=== PATIENT | female | born 1955 | race Caucasian/White ===

== ENCOUNTER 2019-08-10 18:14 | Inpatient (IN) | payer OTHER ==
[~2019-08-10] VITALS: Ht 154.9 cm; Wt 85.4 kg
[~2019-08-10 18:14] MED LIST: ACCOLATE10 MG PO; ALBUTEROL SULF8.5 GM INH; ATROVENT HFA12.9 GM; CYMBALTA30 MG PO; QUETIAPINE FUM100 MG PO; SYMBICORT 80-10.2 GM INH; TRAZODONE HCL50 MG PO
[2019-08-10] MEDS ORDERED: METHYLPREDNISOLONE SOD SUCC 125 MG/2ML VIAL IV STA (18:15)
[2019-08-10] MEDS ORDERED: LEVALBUTEROL HCL SOLN NEBU 1.25 MG/3 ML NEB INH ONE (18:15)
[2019-08-10] MEDS ORDERED: IPRATROPIUM BROMIDE 0.02% 2.5 ML NEB NEB ONE ×2 (18:15→19:15)
[2019-08-10] MEDS ORDERED: ASPIRIN 81 MG CHEW TAB PO ONE (18:15)
[2019-08-10] MEDS ORDERED: LEVOFLOXACIN 500MG/D5W 100ML 100 ML IV ONE (18:30)
[2019-08-10] MEDS ORDERED: SODIUM CHLORIDE 0.9% 500ML 500 ML IV ONE (18:45)
[2019-08-10 18:50] LABS: BASOPHILS # (AUTO) 0.1 (0.0-0.1); BASOPHILS % 0.3 % (0.0-1.0); EOSINOPHILS # (AUTO) 0.1 (0.0-0.4); EOSINOPHILS % 0.6 % (0.0-6.0); HEMATOCRIT 39.6 % (34.2-44.1); HEMOGLOBIN 13.3 g/dL (12.0-16.0); LYMPHOCYTES # (AUTO) 1.5 (1.0-3.2); MEAN CORPUSCULAR HGB CONC 33.6 g/dL (31-35); MEAN CORPUSCULAR VOLUME 92.3 fL (81-99); MONOCYTES # (AUTO) 1.8 (0.2-0.8); MONOCYTES % 8.5 % (4.4-11.3); NEUTROPHILS # (AUTO) 17.8 (2.1-6.9); PLATELET COUNT 275 x10e3/uL (140-360); RED BLOOD COUNT 4.29 x10e6/uL (3.6-5.1); RED CELL DISTRIBUTION WIDTH 12.8 % (11.7-14.4)
[2019-08-10 18:59] LABS: PARTIAL THROMBOPLASTIN TIME 28.6 seconds (23.8-35.5); PROTHROMBIN TIME 13.4 seconds (11.9-14.5)
[2019-08-10] MEDS ORDERED: ALBUTEROL SULF 0.083% NEB SOLN 3 ML NEB NEB STA (19:04)
[2019-08-10 19:09] LABS: ALANINE AMINOTRANSFERASE 40 IU/L (0-55); ALBUMIN 3.6 g/dL (3.5-5.0); ALBUMIN/GLOBULIN RATIO 0.9 (0.8-2.0); ALKALINE PHOSPHATASE 91 IU/L (40-150); ANION GAP 18.1 mmol/L (8-16); BLOOD UREA NITROGEN 12 mg/dL (7-26); BUN/CREATININE RATIO 16 (6-25); CALCIUM 9.8 mg/dL (8.4-10.2); CARBON DIOXIDE 28 mmol/L (22-29); CHLORIDE 96 mmol/L (98-107); CREATINE KINASE 269 IU/L (29-168); CREATININE, SERUM 0.76 mg/dL (0.57-1.11); EST GLOMERULAR FILTRATION RATE > 60 ML/MIN (60-); GLUCOSE 110 mg/dL (74-118); MAGNESIUM 1.8 MG/DL (1.3-2.1); POTASSIUM 4.1 mmol/L (3.5-5.1); SODIUM 138 mmol/L (136-145)
[2019-08-10] MEDS ORDERED: SODIUM CHLORIDE 0.9% 1000ML 1,000 ML IV ONE (19:15)
[2019-08-10] MEDS ORDERED: ACETAMINOPHEN 325 MG TAB PO ONE (19:15)
--- NOTE | 2019-08-10 19:16 | Diagnostic Imaging Report ---
EXAMINATION: CHEST SINGLE (PORTABLE) INDICATION: Shortness of breath ^SOB COMPARISON: None FINDINGS: TUBES and LINES: None. LUNGS: Perihilar peribronchial opacity could be due to bronchitis. No consolidative pneumonia. PLEURA: No pleural effusion or pneumothorax. HEART AND MEDIASTINUM: The cardiomediastinal silhouette is unremarkable. BONES AND SOFT TISSUES: No acute osseous lesion. Soft tissues are unremarkable. UPPER ABDOMEN: No free air under the diaphragm. IMPRESSION: Perihilar peribronchial opacity could be due to bronchitis. No consolidative pneumonia. Signed by: Dr. John Nieves M.D. on 08/10/2019 7:13 PM
[2019-08-10] MEDS ORDERED: SODIUM CHLORIDE 0.9% 1000ML 1,000 ML ONE (19:18)
[2019-08-10 19:23] LABS: B-TYPE NATRIURETIC PEPTIDE2 < 10.0 pg/mL (0-100)
[2019-08-10] MEDS ORDERED: ONDANSETRON HCL INJ 2MG/ML 2ML 2 MG/ML VIAL IV STA (19:39)
[2019-08-10] MEDS ORDERED: PROMETHAZINE HCL (IM) 25 MG/ML VIAL ONE (20:27)
[2019-08-10 21:24] LABS: CLARITY,URINE SL CLOUDY (CLEAR); COLOR,URINE YELLOW (YELLOW); KETONES,URINE NEGATIVE (NEGATIVE); LEUKOCYTE ESTERASE ,URINE NEGATIVE (NEGATIVE); NITRITE,URINE NEGATIVE (NEGATIVE); PROTEIN,URINE DIPSTICK 1+ (NEGATIVE); URINE UROBILINOGEN 2 mg/dL (0.2 - 1)
[2019-08-10 21:25] LABS: BILIRUBIN,URINE NEGATIVE (NEGATIVE)
[2019-08-10] MEDS ORDERED: SODIUM CHLORIDE FLUSH 10 ML SYR INJ PRN (22:00)
[2019-08-10] MEDS: LEVOFLOXACIN 500MG/D5W 100ML IV SCH (22:32)
[2019-08-10] MEDS: SODIUM CHLORIDE 0.9% 1000ML 1,000 ML IV SCH (22:42)
[2019-08-10] MEDS ORDERED: VENLAFAXINE HCL75 M1 PO (23:42)
[2019-08-10] MEDS ORDERED: LAMICTAL100 MG PO (23:42)
[2019-08-10] MEDS ORDERED: MYRBETRIQ50 MG PO (23:46)
[2019-08-10] MEDS ORDERED: AMLODIPINE BESY10 MG PO (23:46)
[2019-08-10] MEDS ORDERED: IMITREX25 MG PO (23:47)
[2019-08-11] MEDS: METHYLPREDNISOLONE SOD SUCC 40 MG/ML VIAL 1ML IV SCH ×4 (00:39→16:42)
[2019-08-11 03:36] LABS: CREATINE KINASE 284 IU/L (29-168)
[2019-08-11] MEDS: ALBUTEROL/IPRATROPIUM 3 ML NEB NEB SCH ×5 (06:15→23:41)
[2019-08-11 06:58] LABS: BLOOD UREA NITROGEN 12 mg/dL (7-26); BUN/CREATININE RATIO 16 (6-25); CALCIUM 8.7 mg/dL (8.4-10.2); CARBON DIOXIDE 26 mmol/L (22-29); CHLORIDE 102 mmol/L (98-107); CREATININE, SERUM 0.73 mg/dL (0.57-1.11); EST GLOMERULAR FILTRATION RATE > 60 ML/MIN (60-); GLUCOSE 158 mg/dL (74-118); SODIUM 137 mmol/L (136-145)
[2019-08-11] MEDS: ACETAMINOPHEN 325 MG TAB PO PRN (07:53)
[2019-08-11 07:57] LABS: HEMATOCRIT 36.3 % (34.2-44.1); HEMOGLOBIN 11.6 g/dL (12.0-16.0); RED BLOOD COUNT 3.83 x10e6/uL (3.6-5.1)
[2019-08-11 07:58] LABS: LYMPHOCYTES % 4.8 % (18.0-39.1); MEAN CORPUSCULAR HEMOGLOBIN 30.3 pg (28-32); MEAN CORPUSCULAR VOLUME 94.8 fL (81-99); MONOCYTES % 1.3 % (4.4-11.3); NEUTROPHILS % 93.4 % (38.7-80.0); PLATELET COUNT 251 x10e3/uL (140-360); RED CELL DISTRIBUTION WIDTH 12.7 % (11.7-14.4)
[2019-08-11 07:59] LABS: BASOPHILS % 0.1 % (0.0-1.0)
[2019-08-11 08:21] LABS: CREATINE KINASE 268 IU/L (29-168)
[2019-08-11 09:23] LABS: LYMPHOCYTES # (AUTO) 0.9 (1.0-3.2); MONOCYTES # (AUTO) 0.2 (0.2-0.8); NEUTROPHILS # (AUTO) 17.2 (2.1-6.9)
--- NOTE | 2019-08-11 12:27 | Consultation ---
DATE OF CONSULTATION: 08/11/2019 Pulmonary Consultation REASON FOR CONSULT: Shortness of breath, wheezing, coughing. HISTORY OF PRESENT ILLNESS: Ms. De La Cruz is a 63-year-old female. She has COPD. She still smokes, has been a smoker for 49 years. She started smoking when she was 14 years old. She has been smoking 2 packs per day. She reports that the cough and congestion started few days ago, progressively got worse, associated with green phlegm, coughing, and shortness of breath on exertion. She also had audible wheezing. She is on nebulizer treatment Stiolto and Stiolto at home was not working, so she decided to come to the emergency room. The shortness of breath slightly improved with nebulizer treatment. She still has cough. REVIEW OF SYSTEMS: GENERAL: Denies fever and chills. HEAD: Denies any head trauma. ENT: Denies any earache. CVS: Denies any chest pain. RESPIRATORY: Shortness of breath. GI: Denies any nausea or vomiting. The rest of the review of systems are negative except as in HPI. PAST MEDICAL HISTORY: Hypertension. PAST SURGICAL HISTORY: Unknown. FAMILY AND SOCIAL HISTORY: She is a smoker for almost 50 years, 2 packs per day. Denies any alcohol use. PHYSICAL EXAMINATION: VITAL SIGNS: Temperature 98.2, T-max of 101.1, pulse of 100, blood pressure 116/63, respiratory rate is 18 to 20, and O2 saturation 96% on 4 L. HEENT: Head is atraumatic and normocephalic. NECK: Supple. CHEST: Wheezing bilaterally. HEART: S1 and S2 audible. ABDOMEN: Soft and nontender. EXTREMITIES: No pedal edema. NEUROLOGIC: Awake and alert. No focal neurologic deficit. LABORATORY DATA: White count of 18,000, hemoglobin 11.6, and platelets 251. Chemistry is within normal limits. CK-MB 14.30 and CK 268. Gram stain sputum Gram-positive cocci in pairs. Chest x-ray, no pneumonia, however, increased bronchovascular markings. ASSESSMENT/PLAN: Ms. De La Cruz is a 63-year-old female with chronic obstructive pulmonary disease, came in with shortness of breath, increasing cough, and wheezing, likely chronic obstructive pulmonary disease exacerbation. Current problems: 1. Chronic obstructive pulmonary disease exacerbation. 2. Hypertension. 3. Smoker. PLAN: Continue the patient on IV Solu-Medrol and nebulizer treatment as ordered. Oxygen as needed. Continue Levaquin. Thank you for this consult. MD DIANA Herrera/MAGALI /[id number]
[2019-08-11] MEDS: SODIUM CHLORIDE 0.9% 1000ML 1,000 ML IV SCH ×2 (13:32→17:00)
[2019-08-11 14:10] LABS: CREATINE KINASE 222 IU/L (29-168)
--- NOTE | 2019-08-11 14:28 | History and Physical ---
HISTORY OF PRESENT ILLNESS: Ms. De La Cruz is a 63-year-old female with history of tobacco use, hypertension, hyperlipidemia, bipolar disorder, COPD that started on three days prior to admission with some shortness of breath, cough, and phlegm. She developed fever. The shortness of breath got worse so she decided to come to the emergency room. PAST MEDICAL HISTORY: She has history of hypertension, hyperlipidemia, COPD, and bipolar disorder. ALLERGIES: SHE IS ALLERGIC TO KEFLEX AND MORPHINE. PAST SURGICAL HISTORY: She had cholecystectomy and hysterectomy. SOCIAL HISTORY: She lives at home with her family. She smokes 1-1/2 pack per day, but she does not drink any alcohol. PHYSICAL EXAMINATION: GENERAL: Today, she is awake and alert. She is feeling better. VITAL SIGNS: Temperature is 98.2, blood pressure is 116/63. HEART: Regular rate, 106 per minute. LUNGS: Bilateral diffuse wheezing. ABDOMEN: Distended and soft. LOWER EXTREMITIES: No edema. LABORATORY DATA: On the blood work white count is 18.37, hemoglobin 11.6, hematocrit 36.3. Potassium is 5, creatinine is 0.73, glucose is 158. Troponin has been negative. BNP is less than 10. Urine shows no white blood cells. Influenza came back negative. Chest x-ray shows perihilar peribronchial opacity that could be due to bronchitis. No consolidative pneumonia. ASSESSMENT: 1. Acute chronic obstructive pulmonary disease exacerbation. 2. Acute bronchitis. 3. Hypertension. 4. Hyperlipidemia. 5. Tobacco use. 6. Bipolar disorder. PLAN: At the present time is to continue IV steroids. Continue neb treatment. Continue IV antibiotics. We are going to get a consult with Dr. Stafford and once we have her home medications we are going to restart her home medications. Prognosis remains guarded. Continual O2 nasal cannula. All this was discussed with the patient and all questions were answered to satisfaction. MD MYLES Bass/MAGALI /[id number]
[2019-08-11 15:43] VITALS: BP 125/61
[2019-08-11 16:00] VITALS: BP 125/61
[2019-08-11 16:09] VITALS: BP 125/61
[2019-08-11] MEDS ORDERED: INFLUENZA VIRUS VAC SPLIT INJ 0.5 ML SYR IM SCH (16:11)
[2019-08-11] MEDS ORDERED: PNEUMOCOCCAL VACCINE POLYVALENT 23 MCG/0.5 ML VIAL IM SCH (16:11)
[2019-08-11] MEDS ORDERED: FENOFIBRATE145 MG PO (16:19)
[2019-08-11] MEDS ORDERED: OMEPRAZOLE40 MG PO (16:19)
[2019-08-11] MEDS ORDERED: ALBUTEROL SULFATE HFA 8GM INHALATION AEROSOL INH PRN (19:15)
[2019-08-11] MEDS ORDERED: SUMATRIPTAN SUCCINATE 25 MG TAB PO PRN (19:15)
--- OUTSIDE RECORDS SUMMARY | 2019-08-11 19:28 | XMS REPORT ---
Author Author [facility] Address Unknown Phone Unavailable Care Team Providers Care Desktop Publisher Name Role Phone Grace BADILLO Unavailable Unavailable Payers Payer Name Policy Type Policy Number Effective Date Expiration Date Problems This patient has no known problems. Allergies, Adverse Reactions, Alerts Allergy Name Allergy Type Status Severity Reaction(s) Onset Date Inactive Date Treating Clinician Comments sucralfate DA Active U 2017-05-02 00:00:00 Medications This patient has no known medications. Results Test Description Test Time Test Comments Text Results Atomic Results Result Comments CHEST SINGLE (PORTABLE) 2019-08-10 19:13:00 [place] [id number] Patient Name: GEOVANNA MCGARRY MR #: [id number] : 1955 Age/Sex: 63/F Req #: [id number] Adm Physician: Ordered by: HERNAN BADILLO MD Report #: [id number] Location: ER Room/Bed: Procedure: [id number] DX/CHEST SINGLE (PORTABLE) Exam Date: 08/10/19 Exam Time: 1858 REPORT STATUS: Signed EXAMINATION: CHEST SINGLE (PORTABLE) IND ICATION: Shortness of breath SOB COMPARISON: None FINDINGS: TUBES and LINES: None. LUNGS: Perihilar peribronchial opacity could be due to bronchitis. No consolidative pneumonia. PLEURA: No pleural effusion or pneumothorax. HEART AND MEDIASTINUM: The cardiomediastinal silhouette is unremarkable. BONES AND SOFT TISSUES: No acute osseous lesion. Soft tissues are unremarkable. UPPER ABDOMEN: No free air under the diaphragm. IMPRESSION: Perihilar peribronchial opacity could be due to bronchitis. No consolidative pneumonia. Signed by: Dr. Maurilio Nieves M.D. on 08/10/2019 7:13 PM Dictated By: MAURILIO NIEVES MD, MD 12 Transcribed By: EILEEN on 08/10/191912 COPY TO: HERNAN BADILLO MD 2018-05-22 14:28:00 RUN DATE: 05/22/18 [facility] PAGE 1 RUN TIME: 1428 Specimen Inquiry RUN USER: INTERFACE PATIENT: GEOVANNA MCGARRY LOC: [facility] U #: [id number] AGE/SX: 62/F ROOM: RE05/20/18REG DR: Bossman Bernal MD : 57 BED: DIS: STATUS: [facility] TLOC: SPEC #: [id number] RECD: 05/20/18 STATUS: GEMMA MURGUIA #: [id number] HANG: 05/20/[address]: Bossman Bernal MD ENTERED: 05/20/18 SP TYPE: POLYP OTHR DR: Guera Stevens MDORDERED: GROSS COPIES TO: Guera Anaya MD [address] [place] [address] Bossman Bernal MD [address] [place] [address] PROCEDURES: GROSS (05/21/18-9701) TISSUES: 1. SIGMOID - POLYP HS BX 2. RECTUM, NOS - POLYP HS BX x2 CLINICAL HISTORY COLLECTION DATE: 05/20/18 SCREENING, HISTORY OF COLON POLYPS FINAL DIAGNOSIS Sigmoid colon, polyp, biopsy: HYPERPLASTIC POLYP NEGATIVE FOR MALIGNANCY Rectum, polyp X2, biopsy: HYPERPLASTIC POLYPS NEGATIVE FOR MALIGNANCY [place] [id number] CONTINUED ON NEXT PAGE RUN DATE: 05/22/18 [facility] PAGE 2 RUN TIME: 1428 Specimen Inquiry RUN USER: INTERFACE SPEC #: [id number] PATIENT: GEOVANNA MCGARRY #[id number] (Continued) MACROSCOPIC The first specimen is received in formalin, labeled with the patient's name, identified as "sigmoid polyp ", and consists of enriquez- red biopsy tissue measuring 0.2 cm, submitted as (1). The second specimen is received in formalin, labeled with the patient's name, identified as "rectum polyp", and consists of two enriquez biopsy tissue measuring 0.1 to 0.15 cm each, submitted as (2). GROSS PERFORMED AT [facility] [address] [place] [address] 318[address] [phone])[phone] MICROSCOPIC MICROSCOPIC PERFORMED AT [facility] All of the stains, including any controls performed, stain appropriately. [facility] [address] [place] [phone] [phone])[phone] PERFORMING SITE Diagnosis performed at: [facility] [address] [place], [place] [id number] Signed SIGNATURE ON FILE Jennifer Ribera 05/22/18 1428 END OF REPORT
[2019-08-11 20:00] VITALS: BP 117/73
[2019-08-11] MEDS: QUETIAPINE FUMARATE 100 MG TAB PO SCH (21:02)
[2019-08-11] MEDS: LEVOFLOXACIN 500MG/D5W 100ML IV SCH (21:02)
[2019-08-11] MEDS ORDERED: PHENERGAN SUPP25 MG PR (21:22)
[2019-08-11] MEDS ORDERED: PROMETHAZINE 12.5MG/ NACL 0.9% 12.5 MG/50 ML BAG IV PRN (22:00)
[2019-08-12] VITALS (8 sets, daily range): BP systolic 94–126; BP diastolic 49–70
[2019-08-12] MEDS: METHYLPREDNISOLONE SOD SUCC 40 MG/ML VIAL 1ML IV SCH ×4 (00:30→19:26)
[2019-08-12] MEDS: ALBUTEROL/IPRATROPIUM 3 ML NEB NEB SCH ×6 (03:00→23:15)
[2019-08-12] MEDS: SODIUM CHLORIDE 0.9% 1000ML 1,000 ML IV SCH (04:55)
[2019-08-12] MEDS: DULOXETINE HCL 30 MG DELAYED RELEASE PO SCH (08:48)
[2019-08-12] MEDS: VENLAFAXINE HCL 75 MG CAPCR PO SCH ×2 (08:50→20:55)
[2019-08-12] MEDS: FENOFIBRATE 145 MG TAB PO SCH (08:51)
[2019-08-12] MEDS: LAMOTRIGINE 100 MG TAB PO SCH (08:51)
[2019-08-12] MEDS: PANTOPRAZOLE SOD 40 MG TABEC PO SCH (08:51)
[2019-08-12] MEDS ORDERED: VENLAFAXINE HCL 75 MG CAPCR PO SCH (09:00)
[2019-08-12] MEDS: NON-FORMULARY MEDICATION (Mirabegron (Myrbetriq) 50 MG) PO SCH (09:00)
[2019-08-12] MEDS ORDERED: AMLODIPINE BESYLATE 10 MG TAB PO SCH (09:00)
--- NOTE | 2019-08-12 10:53 | Progress Note ---
DATE: 08/12/2019 SUBJECTIVE: Ms. De La Cruz is a 63-year-old female with history of hypertension, hyperlipidemia, bipolar disorder, tobacco use and COPD, who came to the emergency room complaining of 3-day history of progressively worsening of shortness of breath, cough and phlegm. She says the shortness of breath got so bad that she had to come to the emergency room. She was started on IV antibiotics, IV steroids, neb treatments, and she is doing better. PHYSICAL EXAMINATION: GENERAL: Today, she is awake and alert. Temperature is 96.3, blood pressure 125/70. HEART: Regular rate. LUNGS: Bilateral wheezing. ABDOMEN: Tender and soft. LABORATORY DATA: On the blood work; white count 18.37, hemoglobin 11.6, hematocrit 36.3. Creatinine and CK-MB elevated. Troponin negative. Potassium 5.0, creatinine 0.73. Influenza test was negative. Blood cultures so far no growth. Sputum culture, usual respiratory sary. Urine culture, mixed sary, contamination. ASSESSMENT: 1. Acute hypoxic and hypercapnic respiratory failure. 2. Chronic obstructive pulmonary disease exacerbation. 3. Acute bronchitis. 4. Hypertension. 5. Hyperlipidemia. 6. Tobacco use. 7. Bipolar disorder. PLAN: At present time is to continue neb treatments, IV steroids, IV antibiotics. The patient has been seen by Pulmonary. Continue all other home medications. Discussion regarding smoke cessation, advised the patient to stop smoking, she understood and agreed. I spent more than 35 minutes examining the patient, reviewing overnight event, lab results, x-rays and discussing plan of care with her. MD MYLES Bass/MODL /[id number]
[2019-08-12] MEDS: AMLODIPINE BESYLATE 10 MG TAB PO SCH (20:55)
[2019-08-12] MEDS: QUETIAPINE FUMARATE 100 MG TAB PO SCH (20:55)
[2019-08-12] MEDS: LEVOFLOXACIN 500MG/D5W 100ML IV SCH (20:55)
[2019-08-13] VITALS (7 sets, daily range): BP systolic 101–161; BP diastolic 55–94
[2019-08-13] MEDS: SODIUM CHLORIDE 0.9% 1000ML 1,000 ML IV SCH ×3 (00:30→10:00)
[2019-08-13] MEDS: METHYLPREDNISOLONE SOD SUCC 40 MG/ML VIAL 1ML IV SCH ×3 (00:31→17:20)
[2019-08-13] MEDS: ALBUTEROL/IPRATROPIUM 3 ML NEB NEB SCH ×5 (03:37→23:49)
[2019-08-13 06:00] LABS: HEMOGLOBIN 10.8 g/dL (12.0-16.0); MEAN CORPUSCULAR HEMOGLOBIN 30.4 pg (28-32); MEAN CORPUSCULAR HGB CONC 32.7 g/dL (31-35); PLATELET COUNT 257 x10e3/uL (140-360); RED BLOOD COUNT 3.55 x10e6/uL (3.6-5.1); RED CELL DISTRIBUTION WIDTH 12.7 % (11.7-14.4)
[2019-08-13 06:20] LABS: ANION GAP 10.5 mmol/L (8-16); BLOOD UREA NITROGEN 19 mg/dL (7-26); BUN/CREATININE RATIO 28 (6-25); CALCIUM 8.2 mg/dL (8.4-10.2); CARBON DIOXIDE 29 mmol/L (22-29); CHLORIDE 105 mmol/L (98-107); CREATININE, SERUM 0.69 mg/dL (0.57-1.11); EST GLOMERULAR FILTRATION RATE > 60 ML/MIN (60-); GLUCOSE 136 mg/dL (74-118); POTASSIUM 4.5 mmol/L (3.5-5.1); SODIUM 140 mmol/L (136-145)
[2019-08-13] MEDS: DULOXETINE HCL 30 MG DELAYED RELEASE PO SCH (08:38)
[2019-08-13] MEDS: LAMOTRIGINE 100 MG TAB PO SCH (08:39)
[2019-08-13] MEDS: VENLAFAXINE HCL 75 MG CAPCR PO SCH ×2 (08:39→21:00)
[2019-08-13] MEDS: AMLODIPINE BESYLATE 10 MG TAB PO SCH (08:40)
[2019-08-13] MEDS: PANTOPRAZOLE SOD 40 MG TABEC PO SCH (08:40)
[2019-08-13] MEDS: FENOFIBRATE 145 MG TAB PO SCH (08:41)
[2019-08-13] MEDS: NON-FORMULARY MEDICATION (Mirabegron (Myrbetriq) 50 MG) PO SCH (09:00)
--- NOTE | 2019-08-13 11:14 | Progress Note ---
DATE: 08/13/2019 SUBJECTIVE: Ms. De La Cruz is a 63-year-old female with history of hypertension, hyperlipidemia, bipolar disorder, tobacco use, and COPD, who came to the emergency room complaining of 3 days of worsening of cough, phlegm, and shortness of breath. She was started on IV antibiotics and IV steroids. She is doing much better today. PHYSICAL EXAMINATION: GENERAL: She is awake and alert. VITAL SIGNS: Temperature is 97, blood pressure 128/70. HEART: Regular rate. LUNGS: Decreased breath sounds bilaterally. ABDOMEN: Soft. LABORATORY DATA: On the blood work, white count went down to 12.68, hemoglobin is 10.8, and hematocrit 33. Urine culture negative. Blood culture negative. ASSESSMENT: 1. Acute hypoxic and hypercapnic respiratory failure. 2. Chronic obstructive pulmonary disease exacerbation. 3. Acute bronchitis. 4. Hypertension. 5. Hyperlipidemia. 6. Tobacco use. 7. Bipolar disorder. 8. Dependence on oxygen. PLAN: The plan at present time is to continue IV antibiotics and steroids. If she is doing better, we may be able to switch her to p.o. treatment and discharge her home in the morning. All this was discussed with the patient. All questions were answered to satisfaction. MD MYLES Bass/MAGALI /[id number]
[2019-08-13] MEDS: ACETAMINOPHEN 325 MG TAB PO PRN (17:43)
[2019-08-13] MEDS: QUETIAPINE FUMARATE 100 MG TAB PO SCH (21:00)
[2019-08-13] MEDS: LEVOFLOXACIN 500MG/D5W 100ML IV SCH (22:00)
[2019-08-14] VITALS: BP 108/57
[2019-08-14] MEDS: ALBUTEROL/IPRATROPIUM 3 ML NEB NEB SCH ×3 (03:18→11:05)
[2019-08-14 04:00] VITALS: BP 113/67
[2019-08-14] MEDS: METHYLPREDNISOLONE SOD SUCC 40 MG/ML VIAL 1ML IV SCH (05:41)
[2019-08-14 08:00] VITALS: BP 156/79
[2019-08-14] MEDS: NON-FORMULARY MEDICATION (Mirabegron (Myrbetriq) 50 MG) PO SCH (08:34)
[2019-08-14] MEDS: VENLAFAXINE HCL 75 MG CAPCR PO SCH (08:39)
[2019-08-14] MEDS: LAMOTRIGINE 100 MG TAB PO SCH (08:39)
[2019-08-14] MEDS: DULOXETINE HCL 30 MG DELAYED RELEASE PO SCH (08:39)
[2019-08-14] MEDS: PANTOPRAZOLE SOD 40 MG TABEC PO SCH (08:40)
[2019-08-14] MEDS: AMLODIPINE BESYLATE 10 MG TAB PO SCH (08:40)
[2019-08-14] MEDS: FENOFIBRATE 145 MG TAB PO SCH (08:40)
[2019-08-14 09:25] VITALS: BP 156/79
[2019-08-14 12:00] VITALS: BP 119/83
--- NOTE | 2019-08-15 04:12 | Discharge Summary ---
HISTORY: Ms. De La Cruz is a 63-year-old female with a history of hypertension, hyperlipidemia, tobacco use, bipolar disorder, and COPD, came to the emergency room complaining of shortness of breath, cough of phlegm. She was started on IV antibiotics and steroids. She is doing better and the plan is to discharge her home if it is okay with Pulmonary today. PHYSICAL EXAMINATION: GENERAL: She is awake and alert, feeling much better. VITAL SIGNS: Temperature 97.4, blood pressure 156/79. HEART: Regular rate. LUNGS: Clear to auscultation. ABDOMEN: Soft. LABORATORY DATA: Blood work: White count 12.68, hemoglobin 10.8, hematocrit 33. Potassium 4.5, creatinine 0.69, glucose 136. Influenza test was negative. Cultures were all negative. Chest x-ray showed perihilar and peribronchial opacity, probably due to bronchitis. DISCHARGE DIAGNOSES: 1. Acute on chronic hypoxic respiratory failure. 2. Chronic obstructive pulmonary disease exacerbation. 3. Acute bronchitis. 4. Hypertension. 5. Hyperlipidemia. 6. Tobacco use. 7. Bipolar disorder. 8. Dependence on oxygen. PLAN: At present time is to discharge the patient home on p.o. Levaquin 500 mg daily for seven days. Steroids to taper down. Continue oxygen at home. We also talk about advice her to quit smoking. Continue other home medications and follow up with me in 1 week. She is to call me or come back to the emergency room if any recurrent problem. Please see home medication reconciliation list. MD MYLES Bass/MAGALI /[id number]
== END 2019-08-14 11:58 | disposition home or self-care (01) | DRG 189 ==
LOC: ER 18:14 → ERHOLD 08-11 00:33 → MED/SURG3 08-11 15:27 → OBSVTOIN 08-12 15:40
PROVIDERS: ADMIT Internal Medicine; ATTEND Internal Medicine
DX: J96.21 Acute and chronic respiratory failure with hypoxia (principal); J44.0 Chronic obstructive pulmonary disease with (acute) lower respiratory infection; J44.1 Chronic obstructive pulmonary disease with (acute) exacerbation; J20.9 Acute bronchitis, unspecified; F17.200 Nicotine dependence, unspecified, uncomplicated; Z99.81 Dependence on supplemental oxygen; E78.5 Hyperlipidemia, unspecified; F31.9 Bipolar disorder, unspecified; I10 Essential (primary) hypertension; J96.22 Acute and chronic respiratory failure with hypercapnia
CPT/HCPCS: 36415; 71045; 80048; 80053; 81001; 82550; 82553; 83605; 83735; 83880; 84484; 85007; 85025; 85027; 85610; 85730; 87040; 87070; 87086; 87205; 87400; 90732; 93005; 94640; 99285; G0378; J1956; J2405; J2550; J2920; J2930; J7030; J7040

== ENCOUNTER 2019-11-12 13:16 | Inpatient (IN) | payer OTHER ==
[~2019-11-12] VITALS: Ht 157.5 cm; Wt 86.2 kg
[~2019-11-12 13:16] MED LIST changes: +AMLODIPINE BESY10 MG PO; +FENOFIBRATE145 MG PO; +IMITREX25 MG PO; +LAMICTAL100 MG PO; +MYRBETRIQ50 MG PO; +OMEPRAZOLE40 MG PO; +PHENERGAN SUPP25 MG PR; +VENLAFAXINE HCL75 M1 PO
--- OUTSIDE RECORDS SUMMARY | 2019-11-12 13:19 | XMS REPORT | Summary of Care ---
Author Author [facility] - Health Organization [facility] - Health Address Unknown Phone Unavailable Care Team Providers Care Product Development Name Role Phone KevangabrieleJohnna PCP Reason for Visit * Reason Comments Rx Concern/Question question Encounter Details Care Team Description Date Type Department Malachi Brown MD [address] [facility] [id number] [place] [address] Rx Concern/Question (question) 09/23/2019 Telephone [facility] [address] [place] [address] Allergies No Known Allergiesdocumented as of this encounter (statuses as of 09/23/2019) Medications End Date Status Medication Sig Dispensed Refills Start Date Active amLODIPine 5 mg tablet 0 8 Active DULoxetine 60 mg capsule 0 8 Active omeprazole 40 mg capsule 0 8 Active losartan-hydrochlorothiaz 0 gracie 50-12.5 mg per tablet 8 Active QUEtiapine 200 mg tablet 0 8 Active fenofibrate micronized 0 130 mg capsule 8 Active lamoTRIgine 150 mg tablet 0 8 Active ipratropium-albuterol 0.5 0 mg-3 mg(2.5 mg base)/3 mL 8 nebulizer solution Active PROVENTIL HFA 90 0 mcg/actuation inhaler 8 Active butalbital-acetaminophen- Take 1 tablet 30 tablet 2 caff 50-325-40 mg tablet by mouth 8 every 6 (six) hours as needed for Headache. Active topiramate 50 mg tablet Take 1/2 60 tablet 3 tablet (25 8 mg) by mouth at bedtime for one week, then take 1/2 tablet (25 mg) by mouth twice daily for one week. Then take 1 tablet (50 mg) by mouth twice daily Active diclofenac-misoprostol Take one tab 45 tablet 2 50-200 mg-mcg per tablet twice a day 8 as needed Active SUMAtriptan 50 mg tablet Take 1 tablet 9 tablet 1 by mouth as 8 needed for Migraine. Take at onset of migraine, may repeat dose in 2hrs if not relieved by 1st dose, No more than 9 tablets/month Active Diclofenac Potassium 25 Take 25 ng by 60 capsule 2 mg Cap mouth 3 8 (three) times daily as needed for Pain (scale 4-6). Active indomethacin 25 mg Take 1 90 capsule 3 01 capsule capsule by 8 mouth every 8 (eight) hours. documented as of this encounter (statuses as of 09/23/2019) Active Problems Not on filedocumented as of this encounter (statuses as of 09/23/2019) Immunizations Name Administration Dates Next Due Influenza Virus Vaccine 04/14/2009, 05/01/2007, 05/2004 Quad IM Multi-dose 6+ [place] Pneumococcal 04/14/2009, 04/17/2004 Polysaccharide, PPSV23 (PNEUMOVAX) Td 09/05/2005 Tdap 09/07/2009 documented as of this encounter Social History Date Tobacco Use Types Packs/Day Years Used Former Smoker Smokeless Tobacco: Never Used Sex Assigned at Date Recorded Not on file Industry Job Start Date Occupation Not on file Not on file Not on file Travel End Travel History Travel Start No recent travel history available. documented as of this encounter Last Filed Vital Signs Not on filedocumented in this encounter Plan of Treatment Care Team Description Date Type Specialty Malachi Brown MD [id number] [place], [place] [address] 10/08/2019 Office Visit Dermatology Franchesca Man MD [address] [place], [place] [id number] 01/08/2020 Office Visit Neurology Health Maintenance Due Date Last Done Comments HEPATITIS C (HCV) SCREEN 1955 PAP SMEAR 1977 Breast Cancer Screening 1996 (MAMMOGRAM) COLONOSCOPY 2006 Zoster Recombinant 2006 Vaccine (SHINGRIX) (1 of 2) PNEUMOCOCCAL 0-64 YEARS 04/14/2010 04/14/2009, COMBINED SERIES (3 of 3 - PCV13) LUNG CANCER SCREEN: 2011 Recommended for age 55-80 with 30 + pack year history INFLUENZA VACCINE (#1) 2019 04/14/2009, , 04/17/2004 DTaP,Tdap,and Td Vaccines 09/08/2019 09/07/2009, 09/05/2005 (2 - Td) documented as of this encounter Results Not on filedocumented in this encounter Insurance Type Payer Benefit Subscriber ID Effective Phone Address Plan / Dates Group Medicaid [employer] [place] xxxxxxxxx 7-P PLAN - MANAGED MEDICAID STAR PLUS resent documented as of this encounter
--- OUTSIDE RECORDS SUMMARY | 2019-11-12 13:19 | XMS REPORT | Summary of Care ---
Author Author [facility] - Health Organization [facility] - Health Address Unknown Phone Unavailable Care Team Providers Care Chief Juvenile Probation Officer Name Role Phone Johnna Clements PCP Reason for Visit * Reason Comments No Show (DNKA) Encounter Details Care Team Description Date Type Department Malachi Brown MD [address] [facility] [id number] [place] [address] NO SHOW (Primary Dx) 11/02/2019 Telemedicine [facility] Dermato logy, Visit [address], [address] [place] [address] Allergies No Known Allergiesdocumented as of this encounter (statuses as of 11/03/2019) Medications End Date Status Medication Sig Dispensed [...] as of this encounter (statuses as of 11/03/2019) Active Problems No known active problemsdocumented as of this encounter (statuses as of 11/03/2019) Immunizations Name Administration Dates Next Due Influenza [...] Signs Not on filedocumented in this encounter Progress Notes * Troy Okeefe MD - 11/03/2019 1:50 PM CDT Encounter opened in error, please disregard I called patient and left messages several times without answer or call back 11/03/2019 15:20 Troy Christensen MD Dermatology PGY-4 documented in this encounter Plan of Treatment Care Team Description Date Type Specialty Franchesca Man MD [address] [place] [address] 01/08/2020 Office Visit Neurology Health Maintenance Due [...] Results Not on filedocumented in this encounter Visit Diagnoses Diagnosis NO SHOW - Primary documented in this encounter Insurance Type Payer Benefit Subscriber ID Effective Phone Address Plan / Dates Group Medicaid [employer] [place] xxxxxxxxx 7-P PLAN - MANAGED MEDICAID STAR PLUS resent documented as of this encounter
--- OUTSIDE RECORDS SUMMARY | 2019-11-12 13:19 | XMS REPORT | Summary of Care ---
Author Author [facility] - Health Organization [facility] - Health Address Unknown Phone Unavailable Care Team Providers Care Evp Head [employer] Experience Strategy Name Role Phone Johnna Clements PCP Reason for Visit * Reason Comments Appointment Encounter Details Care Team Description Date Type Department James Howe Jr., MD [address] [facility] [id number] [place], [place] [id number] Appointment 10/06/2019 Telephone [facility] Dermato logy, [address] [place] [address] Allergies No Known Allergiesdocumented as of this encounter (statuses as of 10/06/2019) Medications End Date Status Medication Sig Dispensed [...] as of this encounter (statuses as of 10/06/2019) Active Problems Not on filedocumented as of this encounter (statuses as of 10/06/2019) Immunizations Name Administration Dates Next Due Influenza [...] Specialty Malachi Brown MD [id number] [place], [place] [address] 11/03/2019 Office Visit Dermatology Franchesca Man MD [address] [place], [place] [address] 01/08/2020 Office Visit Neurology Health Maintenance Due [...]
--- OUTSIDE RECORDS SUMMARY | 2019-11-12 13:19 | XMS REPORT | Summary of Care ---
Author Author [facility] - Health Organization [facility] - Health Address Unknown Phone Unavailable Care Team Providers Care Winemaker Name Role Phone Johnna Clements PCP Reason for Visit * Reason Comments Rx Concern/Question question Results Forms Notification Encounter Details Care Team Description Date Type Department Malachi Brown MD [address] [facility] [id number] [place] [address] Rx Concern/Question (question); Results; Forms; Notification 09/23/2019 Telephone [facility] Dermato logy, [place] [id number] [facility] [address] [place] [address] Allergies No Known Allergiesdocumented as of this encounter (statuses as of 09/29/2019) Medications End Date Status Medication Sig Dispensed [...] as of this encounter (statuses as of 09/29/2019) Active Problems Not on filedocumented as of this encounter (statuses as of 09/29/2019) Immunizations Name Administration Dates Next Due Influenza [...] Specialty Malachi Brown MD [id number] [place] [address] [phone] 11/03/2019 Office Visit Dermatology Franchesca Man MD [address] [place], [place] [address] 01/08/2020 Office Visit Neurology Health Maintenance Due [...]
--- OUTSIDE RECORDS SUMMARY | 2019-11-12 13:19 | XMS REPORT | Summary of Care ---
Author Author [facility] - Health Organization [facility] - Health Address Unknown Phone Unavailable Care Team Providers Care Cashier Assistant Name Role Phone Johnna Clements PCP Reason for Visit * Reason Comments Rx Concern/Question question Results Forms Notification Encounter Details Care Team Description Date Type Department Malachi Brown MD [address] [facility] [id number] [place] [address] Rx Concern/Question (question); Results; Forms; Notification 09/23/2019 Telephone [facility] Dermato logy, [address] [place] [address] Allergies No Known Allergiesdocumented as of this encounter (statuses as of 09/28/2019) Medications End Date Status Medication Sig Dispensed [...] as of this encounter (statuses as of 09/28/2019) Active Problems Not on filedocumented as of this encounter (statuses as of 09/28/2019) Immunizations Name Administration Dates Next Due Influenza [...] Specialty Malachi Brown MD [id number] [place] [address] [phone] 10/08/2019 Office Visit Dermatology Franchesca Man MD [address] [place], [place] [address] 01/08/2020 Office Visit Neurology Health Maintenance Due [...]
--- OUTSIDE RECORDS SUMMARY | 2019-11-12 13:19 | XMS REPORT | Summary of Care ---
Author Author [facility] - Health Organization [facility] - Health Address Unknown Phone Unavailable Care Team Providers Care Infrastructure Design Engineer Name Role Phone KevangabrieleJohnna PCP Reason for Visit * Reason Comments Appointment Encounter Details Care Team Description Date Type Department Malachi Brown MD [id number] [place], [place] [address] Appointment 09/30/2019 Telephone [facility], [address], [address] [place] [address] Allergies No Known Allergiesdocumented as of this encounter (statuses as of 09/30/2019) Medications End Date Status Medication Sig Dispensed [...] as of this encounter (statuses as of 09/30/2019) Active Problems Not on filedocumented as of this encounter (statuses as of 09/30/2019) Immunizations Name Administration Dates Next Due Influenza [...] Specialty Malachi Brown MD [id number] [place], [place] [address] 11/03/2019 Office Visit Dermatology Franchesca Man MD [address] [place], [place] [address] 01/08/2020 Office Visit Neurology Health Maintenance Due [...]
--- OUTSIDE RECORDS SUMMARY | 2019-11-12 13:19 | XMS REPORT | Summary of Care ---
Author Author [facility] - Health Organization [facility] - Health Address Unknown Phone Unavailable Care Team Providers Care Blood Bank Laboratory Professional Name Role Phone Johnna Clements PCP Reason for Visit * Reason Comments Evaluation wart on nose Encounter Details Care Team Description Date Type Department Malachi Brown MD [address] [facility] [id number] [place] [address] Other seborrheic keratosis (Primary Dx); Neoplasm of uncertain behavior of skin; Acrochordon; History of skin cancer 05/04/[address] [facility] Dermatology-[address] [place] [address] Allergies No Known Allergiesdocumented as of this encounter (statuses as of 09/09/2019) Medications End Date Status Medication Sig Dispensed [...] as of this encounter (statuses as of 09/09/2019) Active Problems Not on filedocumented as of this encounter (statuses as of 09/09/2019) Immunizations Name Administration Dates Next Due Influenza [...] filedocumented in this encounter Progress Notes * Malachi rBown MD - 05/04/2019 1:40 PM CDT I saw the patient with Dr. Nahed Ward . I was present for the procedure(s). I agree with Dr. Ward's note as recorded. Malcahi Brown M.D. May 04, 2019, 4:38 PM * Nahed Ward MD - 05/04/2019 1:40 PM CDT Evelyn De La Cruz is a 63 year old female Cc: Spot on nose HPI Evelyn De La Cruz is a 63 year-old with history of skin cancer with history of skin c ancer that presents as a new patient for evaluation of lesion on the nose. She r eports a growth started 1 year ago and has been gradually increasing in size. Lenny lopez has tried OTC freeze gun multiple times with no improvement. This site is pain ful when she blows her nose. She denies pruritis, ulcerating, or bleeding. 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 90 capsule 3 Diclofenac Potassium 25 mg Cap Take 25 ng by mouth 3 (three) times daily as needed for Pain (scale 4-6). 60 capsule 2 SUMAtriptan 50 mg tablet Take 1 tablet by mouth as needed for Migraine. Take at onset of migraine, may repeat dose in 2hrs if not relieved by 1st dose, No m ore than 9 tablets/month 9 tablet 1 diclofenac-misoprostol 50-200 mg-mcg per tablet Take one tab twice a day as needed 45 tablet 2 topiramate 50 mg tablet Take 1/2 tablet (25 mg) by mouth at bedtime for one week, then take 1/2 tablet (25 mg) by mouth twice daily for one week. Then take 1 tablet (50 mg) by mouth twice daily 60 tablet 3 amLODIPine 5 mg tablet ymfpmwqvoj-ecdhtycrgxzuj-isyv 50-325-40 mg tablet Take 1 tablet by mouth corazon ry 6 (six) hours as needed for Headache. 30 tablet 2 DULoxetine 60 mg capsule fenofibrate micronized 130 mg capsule ipratropium-albuterol 0.5 mg-3 mg(2.5 mg base)/3 mL nebulizer solution lamoTRIgine 150 mg tablet losartan-hydrochlorothiazide 50-12.5 mg per tablet omeprazole 40 mg capsule PROVENTIL HFA 90 mcg/actuation inhaler QUEtiapine 200 mg tablet No current facility-administered medications on file prior to visit. Review of Systems Constitutional: Pain (+) Skin: Itching (-), Rash (-), Growth (+), Color change (-) Heme: Bleeding (-) Physical Exam There were no vitals taken for this visit. General : No acute distress, awake, well developed, well nourished Psychiatric: Normal affect, mood, judgement, and thought content Neuro: Alert, oriented to person, place, situation FACE: Positive EYES: Negative NOSE: Positive EARS: Negative SCALP: Negative NECK: Negative CHEST: Positive ABDOMEN: Negative BACK: Negative RIGHT ARM: See image LEFT ARM: Positive (-)=Negative,(+)=Positive Actinic Keratosis (A): erythematous scaling papules Mendoza Hemaniogioma (CH): smooth red and purple papules Dermatitis Erythema (DE): mild to moderate erythema and scaling Dermatitis Lichenified (DL): lichenification and thickening Dermatitis Weeping (DW): weeping and excoriation Inflamed Seborrheic Keratosis (ISK): inflamed warty brown papules and plaques Millium (ML): Small white cystic papule Molluscum Contagiosum (MC): umbilicated papule Nevus Macular (NM): well circumsc ribed evenly pigmented macule Nevus Papular (VMWARE ADMINISTRATOR): well circumscribed evenly pigmented papule Psoriasis Circumscribed (PC): well circumscribed erythema and scaling Psoriasis Diffuse (PD): diffuse patches of erythema and scaling Seborrheic Keratosis (SK): verrucous brown papules and plaques Scar (SR): cicatricial change Verruca Vulgarus (W): warty hyperkeratotic papule Assessment/Plan 1. Neoplasm of Uncertain Behavior - L nasal tip - Ddx: Rule out BCC - Discussed differential diagnosis and treatment options with patient. Risks dis cussed (pain, infection, bleeding, scarring). Verbal consent obtained - Area prepped with alcohol. Local anesthesia obtained with 1% lidocaine with ep inephrine. 1.0 cm tangential bx performed. Specimen sent to pathology for analys is, pt to be contacted with results. Hemostasis obtained with AlCl. Vaseline and bandage applied. Wound care discussed. 2. Acrochordon, chest - Benign appearing, patient reassured - LN2 offered Seborrheic keratoses, posterior arms - Benign appearing, patient reassured - LN2 offered History of skin cancer - Per patient (no [facility] records found), BCC of R eyebrow s/p excision ~10 years a go - Well healed scar - No evidence of recurrence - Continue routine skin exams and sun protection RTC 3 months or pending biopsy results. Patient seen with Dr. Brown who agrees with plan of care. Nahed Ward MD [facility] Dermatology, PGY-2 05/04/2019 3:14 PM documented in this encounter Plan of Treatment Care Team Description Date Type Specialty Malachi Brown MD [id number] [place], [place] [id number] 10/08/2019 Office Visit Dermatology Franchesca Man MD [facility] [place] [address] 01/08/2020 Office Visit Neurology Health [...] - Td) documented as of this encounter Procedures Comments Procedure Name Priority Date/Time Associated Diag nosis DERMATOPATHOLOGY TISSUE Routine 05/04/2019 EXAM documented in this encounter Results * DERMATOPATHOLOGY TISSUE EXAM (05/04/2019) Specimen Performing Organization Address City/State/Zipcode Ph one Number [place] documented in this encounter Visit Diagnoses Diagnosis Other seborrheic keratosis - Primary Neoplasm of uncertain behavior of skin Acrochordon Unspecified hypertrophic and atrophic c ondition of skin History of skin cancer Personal history of other malignant tabatha plasm of skin documented in this encounter Insurance Type Payer Benefit Subscriber ID Effective Phone Address Plan / Dates Group Medicaid [employer] [place] xxxxxxxxx 7-P PLAN - MANAGED MEDICAID STAR PLUS resent documented as of this encounter
--- OUTSIDE RECORDS SUMMARY | 2019-11-12 13:19 | XMS REPORT | Summary of Care ---
Author Author [facility] - Health Organization [facility] - Health Address Unknown Phone Unavailable Care Team Providers Care Residential Aide Name Role Phone Jimantonygabriele Johnna PCP Reason for Visit * Reason Comments Appointment Encounter Details Care Team Description Date Type Department James Howe Jr., MD [id number] [place] [address] Appointment 11/11/[address] [place] [address] Allergies No Known Allergiesdocumented as of this encounter (statuses as of 11/11/2019) Medications End Date Status Medication Sig Dispensed [...] as of this encounter (statuses as of 11/11/2019) Active Problems No known active problemsdocumented as of this encounter (statuses as of 11/11/2019) Immunizations Name Administration Dates Next Due Influenza [...] Treatment Care Team Description Date Type Specialty James Howe Jr., MD [id number] [place], [place] [address] 11/11/2019 Office Visit Dermatology Franchesca Man MD [address] [place], [place] [address] 01/08/2020 Office Visit Neurology Health Maintenance Due Date Last Done Comments HEPATITIS C (HCV) SCREEN 1956 PAP SMEAR 1977 Breast Cancer Screening 1996 (MAMMOGRAM) COLONOSCOPY 2006 Zoster Recombinant 2006 Vaccine (SHINGRIX) (1 of 2) PNEUMOCOCCAL 0-64 YEARS 04/14/2010 04/14/2009, COMBINED SERIES (3 of 3 - PCV13) LUNG CANCER SCREEN: 2011 Recommended for age 55-80 with 30 + pack year history DTaP,Tdap,and Td Vaccines 09/08/2019 09/07/2009, 09/05/2005 (2 - Td) INFLUENZA VACCINE (Season 03/08/2020 04/14/2009, 05/01/2007, 04/17/2004 Ended) documented as of this encounter Results Not on filedocumented in this encounter Insurance Type Payer Benefit Subscriber ID Effective Phone Address Plan / Dates Group Medicaid [employer] [place] xxxxxxxxx 7-P PLAN - MANAGED MEDICAID STAR PLUS resent documented as of this encounter
--- OUTSIDE RECORDS SUMMARY | 2019-11-12 13:19 | XMS REPORT | Summary of Care ---
Author Author [facility] - Health Organization [facility] - Health Address Unknown Phone Unavailable Care Team Providers Care Modeling Instructor Name Role Phone Kevangabriele Johnna PCP Reason for Visit * Reason Comments Appointment Encounter Details Care Team Description Date Type Department James Howe Jr., MD [id number] [place] [address] Appointment 11/10/[address] [place] [address] Allergies No Known Allergiesdocumented as [...] James Howe Jr., MD [id number] [place], [place] [address] 11/11/2019 Office Visit Dermatology Franchesca Man MD [address] [place], [place] [address] 01/08/2020 Office Visit Neurology Health Maintenance Due [...]
--- OUTSIDE RECORDS SUMMARY | 2019-11-12 13:19 | XMS REPORT | Summary of Care ---
Author Author [facility] - Health Organization [facility] - Health Address Unknown Phone Unavailable Care Team Providers Care Fiberglasser Name Role Phone Johnna Clements PCP Reason for Visit * Reason Comments Results Encounter Details Care Team Description Date Type Department Antonella Borjas MD [address] [place] [address] Results 09/29/2019 Telephone [facility] Dermato [facility]y, [place] [id number] [facility] [address], [address] [place] [address] Allergies No Known Allergiesdocumented as [...] Specialty Malachi Brown MD [id number] [place], [place] [address] 11/03/2019 Office Visit Dermatology Franchesca Man MD [address] [place], [place] [address] 01/08/2020 Office Visit Neurology Health Maintenance Due [...]
--- OUTSIDE RECORDS SUMMARY | 2019-11-12 13:19 | XMS REPORT | Summary of Care ---
Author Author [facility] - Health Organization [facility] - Health Address Unknown Phone Unavailable Care Team Providers Care Slag Skimmer Name Role Phone Jimantonygabriele Johnna PCP Reason for Visit * Reason Comments Results Assessment Appointment Encounter Details Care Team Description Date Type Department Nahed Ward MD [address] [place] [phone] Results; Assessment; Appointment 09/16/2019 Telephone [facility] Dermato logy, [place] [address] [facility] [address] [place] [address] Allergies No Known Allergiesdocumented as of this encounter (statuses as of 09/17/2019) Medications End Date Status Medication Sig Dispensed [...] as of this encounter (statuses as of 09/17/2019) Active Problems Not on filedocumented as of this encounter (statuses as of 09/17/2019) Immunizations Name Administration Dates Next Due Influenza [...] Specialty Malachi Brown MD [id number] [place], [place] [address] 10/08/2019 Office Visit Dermatology Franchesca Man MD [address] [place], [place] [address] 01/08/2020 Office Visit Neurology Health Maintenance Due [...]
[2019-11-12] MEDS ORDERED: ONDANSETRON HCL INJ 2MG/ML 2ML 2 MG/ML VIAL IV STA (13:58)
[2019-11-12] MEDS ORDERED: SODIUM CHLORIDE 0.9% 1000ML 1,000 ML IV STA (13:58)
[2019-11-12] MEDS ORDERED: MORPHINE SULFATE 2 MG/ML SYR 1ML IV STA (13:58)
[2019-11-12] MEDS ORDERED: PIPER-TAZ 3.375 GM 50 ML IV ONE (14:00)
[2019-11-12] MEDS ORDERED: HYDROMORPHONE 1MG/1ML INJ IV STA (14:20)
[2019-11-12 14:27] LABS: BASOPHILS # (AUTO) 0.1 (0.0-0.1); BASOPHILS % 0.4 % (0.0-1.0); EOSINOPHILS # (AUTO) 0.3 (0.0-0.4); EOSINOPHILS % 1.5 % (0.0-6.0); HEMATOCRIT 42.9 % (34.2-44.1); HEMOGLOBIN 13.9 g/dL (12.0-16.0); LYMPHOCYTES # (AUTO) 2.4 (1.0-3.2); LYMPHOCYTES % 13.5 % (18.0-39.1); MEAN CORPUSCULAR HEMOGLOBIN 29.7 pg (28-32); MEAN CORPUSCULAR HGB CONC 32.4 g/dL (31-35); MEAN CORPUSCULAR VOLUME 91.7 fL (81-99); MONOCYTES # (AUTO) 1.3 (0.2-0.8); MONOCYTES % 7.4 % (4.4-11.3); NEUTROPHILS # (AUTO) 13.4 (2.1-6.9); NEUTROPHILS % 76.9 % (38.7-80.0); PLATELET COUNT 289 x10e3/uL (140-360); RED BLOOD COUNT 4.68 x10e6/uL (3.6-5.1); RED CELL DISTRIBUTION WIDTH 12.7 % (11.7-14.4)
[2019-11-12] MEDS ORDERED: HYDROMORPHONE 1MG/1ML INJ ONE (14:37)
[2019-11-12 14:40] LABS: INR 0.86; PARTIAL THROMBOPLASTIN TIME 24.4 seconds (23.8-35.5); PROTHROMBIN TIME 12.2 seconds (11.9-14.5)
[2019-11-12 14:47] LABS: ALANINE AMINOTRANSFERASE 23 IU/L (0-55); ALBUMIN 3.9 g/dL (3.5-5.0); ALBUMIN/GLOBULIN RATIO 1.1 (0.8-2.0); ALKALINE PHOSPHATASE 91 IU/L (40-150); ANION GAP 15.2 mmol/L (8-16); BLOOD UREA NITROGEN 10 mg/dL (7-26); BUN/CREATININE RATIO 14 (6-25); CARBON DIOXIDE 39 mmol/L (22-29); CHLORIDE 88 mmol/L (98-107); CREATINE KINASE 143 IU/L (29-168); CREATININE, SERUM 0.71 mg/dL (0.57-1.11); EST GLOMERULAR FILTRATION RATE > 60 ML/MIN (60-); GLUCOSE 92 mg/dL (74-118); POTASSIUM 4.2 mmol/L (3.5-5.1); SODIUM 138 mmol/L (136-145)
--- NOTE | 2019-11-12 15:19 | Diagnostic Imaging Report ---
EXAMINATION: CHEST SINGLE (PORTABLE) INDICATION: Back pain COMPARISON: None FINDINGS: LINES/TUBES:EKG leads overlie the chest. LUNGS:The lungs are well-inflated. No focal consolidation or pulmonary edema. PLEURA:No pleural effusion or pneumothorax. MEDIASTINUM:The cardiomediastinal silhouette appears normal in size and shape. BONES/SOFT TISSUES:No acute osseous injury. ABDOMEN:No free air under the diaphragm. IMPRESSION: No focal pneumonia or pulmonary edema. Signed by: Ceci Man MD on 11/12/2019 3:15 PM
--- NOTE | 2019-11-12 16:18 | NUR ---
Carmenza adkins in [facility] - 11/12/19 at 1636 by BENIGNO CALLED [phone], MALE ANSWERED AND IMMEDIATELY STATED WHO WE WERE AND PT NAME AND SAID HE HAD JUST BEEN TALKING TO NEURO SURGERY REGARDING PT. I EXPLAINED I WAS CALLING TO GIVE REPORT AND WAS PLACED ON HOLD 4MINS 32 SECONDS
--- NOTE | 2019-11-12 16:22 | NUR ---
PT VOIDED ON BEDPAN, BUT SPILLED AND UNABLE TO GIVE UA. NOTIFIED. PT STATES WILL TRY AGAIN LATER. AWARE.
[2019-11-12] MEDS ORDERED: GADOBENATE DIMEGLUMINE 1 ML IV ONE (16:32)
[2019-11-12] MEDS ORDERED: HYDROMORPHONE 1MG/1ML INJ IV PRN ×2 (17:15)
--- NOTE | 2019-11-12 17:52 | NUR ---
STILL IN MRI
[2019-11-12] MEDS ORDERED: PIPER-TAZ 3.375 GM 50 ML ONE (17:58)
--- NOTE | 2019-11-12 18:07 | NUR ---
PT STILL IN MRI.
[2019-11-12] MEDS: ONDANSETRON HCL INJ 2MG/ML 2ML 2 MG/ML VIAL IV PRN ×2 (18:08→18:53)
--- NOTE | 2019-11-12 18:48 | NUR ---
PT FELT WARM TOO TOUCH, CHECKED TEMP WITH TWO DIFFERENT THERMOMETERS AND AFEBRILE.
--- NOTE | 2019-11-12 19:11 | NUR ---
PATIENT PENDING ARRIVAL TO THE FLOOR, REPORT RECEIVED FROM [employer] DEANDRE IBARRA,
[2019-11-12] MEDS ORDERED: NALOXONE HCL 2MG/2 ML SYRINGE IV ONE ×2 (20:15→23:15)
[2019-11-12] MEDS ORDERED: NALOXONE HCL INJ 0.4 MG/ML AMP ONE (20:20)
[2019-11-12] MEDS ORDERED: SUCCINYLCHOLINE CHLORIDE 20 MG/ML 10ML VIAL ONE (20:34)
[2019-11-12] MEDS ORDERED: MIDAZOLAM HCL 2 MG/2 ML VIAL ONE ×2 (21:07→21:16)
--- NOTE | 2019-11-12 21:08 | Diagnostic Imaging Report ---
History:Back pain Comparison studies:None Technique: Sagittal T2, T1 and STIR, coronal T2. Post contrast axial and sagittal T1 Intravenous contrast: 17 cc of MultiHance Findings: Curvature: Normal kyphosis. No scoliosis. Paraspinal soft tissues: No signal abnormalities Spinal cord: Normal in morphology and signal intensity. Vertebrae: Decreased T1 signal, increased T2 and STIR signal and enhancement along the superior endplate of T5 and throughout the vertebral body of T8 are consistent with acute compression fractures. Loss of vertebral body height is less than 30% at T5 but closer to 50% in the anterior aspect of the vertebral body at T8 (image 7 on series 5, 6 and 7). Abnormal signal focally extends into the pedicles at T8. A focus of enhancement in the inferior endplate of T7 may be posttraumatic or degenerative (series 7, image 7). Otherwise, the rest of the thoracic vertebral bodies are normal in height and signal intensity. Disk spaces: Normal in height and signal intensity. Disk herniations: None. Foramina: Patent. Spinal canal: Patent. IMPRESSION: 1. Acute compression fractures at T5 and T8 result in less than 30 and approximately 50% loss of vertebral body height respectively. No retropulsed fragment displaced into the spinal canal. The subtle fractures could be due to osteopenia unless there is history of a primary malignancy. 2. Otherwise, no abnormalities. 3. Specifically, no infection. Signed by: Dr. Dre Huffman M.D. on 11/12/2019 9:05 PM
--- NOTE | 2019-11-12 21:13 | Diagnostic Imaging Report ---
History: Back pain Comparison studies: None Technique: Pre-contrast sagittal, coronal and axial T2 , sagittal T1 and IR, axial spin density oblique. Postcontrast axial and sagittal T1 Intravenous contrast: 17 cc of MultiHance. Findings: Number of lumbar vertebral bodies:5 Alignment:Normal lordosis.No scoliosis. Soft tissues:No T2 hyperintense inflammatory changes. Paraspinal muscles: Fatty infiltrated from L3 through S1. Lower thoracic cord:Normal in signal and morphology. The tip of the conus is at T12-L1. Cauda equina:No masses. No arachnoiditis. 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 Vertebrae: Normal in height and signal intensity. No compression fractures, infection or neoplasm. Degenerative changes: * Mildly degenerated discs from L3 through S1. * Moderately degenerated facets at L4-5 associated with enhancing pericapsular, there are changes. * No significant spinal canal stenosis in spite of this bulges from L3 through S1. * Moderate bilateral foraminal stenosis at L5-S1 due to disc bulges, endplate osteophytes and facet arthrosis. IMPRESSION: 1. No acute abnormalities. 2. Significantly, no compression fractures, neoplasm or infection. 3. Degenerative changes as described. Signed by: Dr. Dre Huffman M.D. on 11/12/2019 9:10 PM
[2019-11-12 21:23] LABS: ABG PCO2 > 130 mmHg (35-45); ABG PH 7.04 (7.35-7.45); ABG PO2 225 mmHg (80-105)
[2019-11-12] MEDS ORDERED: SODIUM CHLORIDE 0.9% 1000ML 1,000 ML ONE (21:29)
[2019-11-12] MEDS ORDERED: SODIUM CHLORIDE 0.9% 1000ML 1,000 ML IV ONE ×2 (22:00→23:45)
[2019-11-12] MEDS ORDERED: PROPOFOL IV EMULSION 10 MG/ML 50 ML VIAL ONE (22:16)
[2019-11-12] MEDS: PROPOFOL IV EMULSION 10MG/ML 100 ML IV SCH (22:32)
[2019-11-12 22:42] LABS: CREATINE KINASE MB 6.2 ng/mL (0-5.0)
--- NOTE | 2019-11-12 23:00 | NUR ---
Nursing narrative note- 2013-upon nursing rounds, patient did not respond to painful stimuli-dr mccarty called to room, blood glucose done- no hypoglycemia, 2015 and 2016- 2 rounds of narcan given 2027- decision was made to intubate based on patients presentation 2035- intubation completed 2039-dr mario-critical care/pulmonogly at bedside providing patient support in addition to dr mccarty 2055- dr mario decison to start central line procedure 2156- ekg done and showed to dr mario, dr mario ordered cardiac enzymes to be drawn. all ekgs, labs, and abg results reviewed in full with critical care attending.
[2019-11-12] MEDS ORDERED: SUCCINYLCHOLINE 200 MG/10 ML SYR IV STA (23:10)
--- NOTE | 2019-11-12 23:15 | Diagnostic Imaging Report ---
EXAMINATION: CHEST SINGLE (PORTABLE) INDICATION: ET tube, verify position chest x-ray 11/12/2019 COMPARISON: None FINDINGS: TUBES and LINES: ET tube tip approximately 1.5 cm above addie. The right IJ central venous catheter tip is in the low SVC. LUNGS: Normal lung volumes. Lungs are clear. No consolidations. PLEURA: No pleural effusion or pneumothorax. HEART AND MEDIASTINUM: The cardiomediastinal silhouette is unremarkable. BONES AND SOFT TISSUES: No acute osseous lesion. Soft tissues are unremarkable. UPPER ABDOMEN: No free air under the diaphragm. IMPRESSION: ET tube tip approximately 1.5 cm above addie, consider 2 cm retraction, with repeat radiograph. The right IJ central venous catheter tip is in the low SVC. Signed by: Lyndon Sanchez DO on 11/12/2019 11:12 PM
[2019-11-12] MEDS ORDERED: MIDAZOLAM HCL 2 MG/2 ML VIAL IV STA ×3 (23:39)
[2019-11-13] VITALS (26 sets, daily range): BP systolic 93–145; BP diastolic 52–83
[2019-11-13] MEDS: DOXYCYCLINE 100MG/NS 100ML 100 ML IV SCH ×3 (00:23→21:47)
[2019-11-13] MEDS ORDERED: PROPOFOL IV EMULSION 10 MG/ML 50 ML VIAL ONE ×2 (01:03→05:04)
--- NOTE | 2019-11-13 01:23 | Diagnostic Imaging Report ---
EXAMINATION: CHEST SINGLE (PORTABLE) INDICATION: ET tube, verify position COMPARISON: Chest x-ray 11/12/2019 FINDINGS: TUBES and LINES: The ET tube is now 4.3 cm above the addie, ideal. Right IJ central venous catheter, tip in the low SVC. LUNGS: Normal lung volumes. Lungs are clear. No consolidations. PLEURA: No pleural effusion or pneumothorax. HEART AND MEDIASTINUM: The cardiomediastinal silhouette is unremarkable. BONES AND SOFT TISSUES: No acute osseous lesion. Soft tissues are unremarkable. UPPER ABDOMEN: No free air under the diaphragm. IMPRESSION: The ET tube is now 4.3 cm above the addie, ideal. Signed by: Lyndon Sanchez DO on 11/13/2019 1:20 AM
--- NOTE | 2019-11-13 01:36 | Operative Report ---
DATE OF PROCEDURE: SURGEON: Boni Austin MD PROCEDURE: Central line placement under ultrasound guidance. PREOPERATIVE DIAGNOSIS: Thoracic compression fractures and leukocytosis. POSTOPERATIVE DIAGNOSIS: Thoracic compression fractures and leukocytosis. CONSENT: Consent was deemed emergent because of the patient's decreased responsiveness and inability to obtain peripheral IV. PROCEDURE IN DETAIL: The patient was placed in a supine position. The right neck was prepped sterilely with Betadine. 1% lidocaine was used to anesthetize the area. A full length sterile drape, full length gown, gloves, and sterile cap were used. The right internal jugular vein was cannulated under direct visualization with a 16-gauge needle. The wire could not be passed. The vein cannulated on the 2nd attempt under direct visualization and the wire was passed through the needle. A dilator was used over the wire to open the skin. A triple-lumen catheter was then passed over the wire by the Seldinger technique. All the ports flushed. COMPLICATIONS: None. ESTIMATED BLOOD LOSS: 10 mL. Boni Austin MD [facility] /[id number]
[2019-11-13 02:33] LABS: ABG PH 7.13 (7.35-7.45)
[2019-11-13 02:34] LABS: ABG HCO3 41 mmol/L (22-26); ABG PCO2 123 mmHg (35-45); ABG PO2 96 mmHg (80-105)
--- NOTE | 2019-11-13 04:06 | Consultation ---
DATE OF CONSULTATION: Pulmonary Critical Care Consultation HISTORY OF PRESENT ILLNESS: The patient is a 64-year-old woman. She has a history of bipolar disorder, COPD, hypertension, and osteoporosis. She required hospitalization at [facility] in August for COPD exacerbation. She also uses inhalers at home, although she does not use oxygen. She has chronic back pain. She has been having worsening back pain over the past several days to week. She was also noted to have a leukocytosis. She did not have fevers. She had been taking extra narcotics at home. She was pending admission to the hospital in the ER and went for an MRI of the thoracic and lumbar spine. Several hours later, she was found to be unresponsive. Blood gas showed an elevated carbon dioxide greater than 130. She required intubation. PAST SURGICAL HISTORY: 1. Status post cholecystectomy. 2. Status post hysterectomy. PAST MEDICAL HISTORY: 1. Hypertension. 2. COPD. 3. Bipolar disorder. ALLERGIES: SHE IS ALLERGIC TO KEFLEX AND MORPHINE. SOCIAL HISTORY: The patient is a smoker. She does not drink alcohol. FAMILY HISTORY: Family history is not obtainable. REVIEW OF SYSTEMS: There is a history of leukocytosis, but no history of fevers. There is no history of headache. She is not having any neck pain. She does have thoracic back pain. She did not have any chest pain. Abdominal pain was and not present. She had no nausea or vomiting. She had no leg edema. PHYSICAL EXAMINATION: VITAL SIGNS: The patient is afebrile. The blood pressure is 153/85, saturation is 97%, and the pulse is 101. HEENT: Shows no facial swelling or erythema. CARDIAC: Reveals a regular rate and rhythm with a normal S1 and S2. She is currently intubated and on a mechanical ventilator with a PRVC mode of ventilation. There is a right IJ line in place. There is a small hematoma at this site. CARDIAC: Reveals a regular rate and rhythm with normal S1, S2. LUNGS: Auscultation of lungs reveals prolonged expiratory phase bilaterally. ABDOMEN: Soft, nontender. There is no rebound or guarding. EXTREMITIES: Show no leg edema or calf tenderness. There is no cyanosis clubbing. SKIN: Shows no rashes. NEUROLOGICAL: Shows no focal abnormalities. LABORATORY DATA: White blood cell count is 17.4 and hemoglobin is 13.9. The platelet count is 289. The BUN to creatinine ratio is normal. The carbon dioxide is 39. Other electrolytes are within normal limits. Blood gas prior to intubation showed a pH of 7.04 with a CO2 greater than 130 and a PO2 of 225. RADIOGRAPHIC DATA: Lumbar and thoracic MRI shows a compression fracture at T5 and T8. There is no retropulsed fragment. Chest x-ray shows no pneumonia or focal abnormalities. IMPRESSION: 1. Acute on chronic respiratory failure. 2. Chronic obstructive pulmonary disease with acute exacerbation. 3. Acute thoracic compression fractures at T5 and T8. 4. Bipolar disorder. 5. Osteoporosis. 6. Hypertension. PLAN: 1. Continue mechanical ventilation. 2. Diprivan for sedation. 3. Corticosteroids. 4. Bronchodilators. 5. Antibiotics. 6. The patient will need pain control and evaluation for her thoracic compression fractures. Boni Austin MD [facility] /[id number]
[2019-11-13 05:17] LABS: BASOPHILS % 0.1 % (0.0-1.0); HEMATOCRIT 37.4 % (34.2-44.1); HEMOGLOBIN 11.8 g/dL (12.0-16.0); LYMPHOCYTES # (AUTO) 0.6 (1.0-3.2); LYMPHOCYTES % 4.6 % (18.0-39.1); MEAN CORPUSCULAR HEMOGLOBIN 29.6 pg (28-32); MEAN CORPUSCULAR HGB CONC 31.6 g/dL (31-35); MEAN CORPUSCULAR VOLUME 93.7 fL (81-99); MONOCYTES # (AUTO) 0.3 (0.2-0.8); NEUTROPHILS # (AUTO) 12.8 (2.1-6.9); PLATELET COUNT 228 x10e3/uL (140-360); RED BLOOD COUNT 3.99 x10e6/uL (3.6-5.1); RED CELL DISTRIBUTION WIDTH 12.8 % (11.7-14.4)
[2019-11-13 05:37] LABS: ALANINE AMINOTRANSFERASE 22 IU/L (0-55); ALBUMIN 3.2 g/dL (3.5-5.0); ALBUMIN/GLOBULIN RATIO 1.1 (0.8-2.0); ALKALINE PHOSPHATASE 77 IU/L (40-150); ANION GAP 12.5 mmol/L (8-16); BLOOD UREA NITROGEN 15 mg/dL (7-26); BUN/CREATININE RATIO 24 (6-25); CALCIUM 8.9 mg/dL (8.4-10.2); CARBON DIOXIDE 34 mmol/L (22-29); CHLORIDE 96 mmol/L (98-107); CREATININE, SERUM 0.63 mg/dL (0.57-1.11); EST GLOMERULAR FILTRATION RATE > 60 ML/MIN (60-); GLUCOSE 72 mg/dL (74-118); POTASSIUM 4.5 mmol/L (3.5-5.1); SODIUM 138 mmol/L (136-145)
[2019-11-13] MEDS: PROPOFOL IV EMULSION 10MG/ML 100 ML IV SCH ×2 (05:45→06:15)
[2019-11-13 05:56] LABS: CREATINE KINASE MB 5.1 ng/mL (0-5.0)
[2019-11-13] MEDS: DULOXETINE HCL 30 MG DELAYED RELEASE PO SCH (09:00)
[2019-11-13] MEDS ORDERED: METHYLPREDNISOLONE SOD SUCC 125 MG/2ML VIAL IV SCH ×2 (09:00)
--- NOTE | 2019-11-13 09:45 | Diagnostic Imaging Report ---
X-ray chest/abdomen AP portable History: NG tube placement Findings: A nasogastric tube is seen coursing down the expected past with the tip overlying the left upper quadrant of the abdomen. No other significant findings in the visualized lower chest and upper abdomen. Impression: Nasogastric tube tip in the left upper quadrant. Signed by: Renny Gomez MD on 11/13/2019 9:41 AM
--- NOTE | 2019-11-13 09:52 | Diagnostic Imaging Report ---
X-ray chest AP portable Comparison: 11/13/2019 at 04 13 Findings: Please note that the image quality is suboptimal for interpretation. Endotracheal tube tip is barely visualized on this image. However suspected to be at the thoracic inlet. No change in the right IJ central venous line. Nasogastric tube seen coursing down the expected path and is just described in a separate report. Heart size borderline normal. No pleural effusion. No definite pneumothorax. Interval appearance of opacity in the right lung upper and mid zones. Fractures of posterior left seventh eighth and ninth ribs are noted. There was not as clearly visible on the previous exam. Impression: Suboptimal imaging quality. Interval opacity in the right lung likely representing right upper lobe suggestive of infection or aspiration. Please repeat the chest x-ray. Signed by: Renny Gomez MD on 11/13/2019 9:49 AM
--- NOTE | 2019-11-13 10:17 | Progress Note ---
DATE: Pulmonary Progress Note Patient of Dr. Shrestha. SUBJECTIVE: The patient was seen emergently last night by Dr. Austin because of respiratory failure and CO2 narcosis with PaCO2 in excess of 130 after an MRI was taken for her compression fractures T5 and T8. She was admitted through the emergency room for back pain. She has a history of severe COPD and bipolar disorder. She was intubated last night and a central line was placed. She was started on corticosteroids and empiric antibiotics. She is wheezy. There was an attempt to wean the patient this morning, but she desaturated on FiO2 50%, became anxious, saturations in the mid 80s. She was placed back on sedation and inhaled bronchodilators resumed with albuterol and ipratropium. Steroids were reduced to moderate dose. Plan is to wean in the a.m. Check vitamin D levels. Calcium levels were normal. Thank you for this kind referral. MD ROBERT Varma/[facility]ALI /[id number]
[2019-11-13] MEDS: PROPOFOL IV EMULSION 10 MG/ML 50 ML VIAL IV SCH ×6 (10:25→23:55)
[2019-11-13] MEDS ORDERED: SODIUM CHLORIDE 0.9% 250ML 250 ML ONE (10:34)
[2019-11-13] MEDS: LAMOTRIGINE 100 MG TAB PO SCH (10:37)
--- NOTE | 2019-11-13 11:27 | History and Physical ---
HISTORY OF PRESENT ILLNESS: Ms. De La Cruz is a 64-year-old female with history of a COPD, hypertension, oxygen-dependent, osteoporosis, bipolar disorder, hyperlipidemia, who was seen in the office yesterday because one week prior to admission, she started complaining, she said she stand up from bed and she started having excruciating middle back pain that got worse during a week, she was not even able to walk. She came to see me in a wheelchair on severe pain, so she was sent the emergency room for admission. The patient came to the emergency room. She is oxygen dependent. Had an MRI done that showed compression fracture of T5 and T8. She was given some pain medications. She started retaining CO2 and she required to be intubated and transferred to the ICU today. PAST MEDICAL HISTORY: She has history of COPD, oxygen dependent, hypertension, hyperlipidemia, osteoporosis, bipolar disorder. ALLERGIES: SHE IS ALLERGIC TO KEFLEX AND MORPHINE. SOCIAL HISTORY: She lives at home with her . She smokes, but she does not drink. PAST SURGICAL HISTORY: She had hysterectomy and cholecystectomy. PHYSICAL EXAMINATION: GENERAL: Today, the patient is sedated. She is orally intubated in ICU. VITAL SIGNS: Temperature is 97.8, blood pressure 102/69. HEART: Regular rate. LUNGS: Poor inspiratory effort. ABDOMEN: Distended and soft. LABORATORY DATA: On the blood work; white count is 13.75, hemoglobin is 11.8, and hematocrit is 37.4. Blood gas shows a pH of 7.13, pCO2 123, pO2 96. Potassium is 4.5, creatinine is 0.63, glucose is 72. Her coronavirus is pending. Blood cultures are pending. MRI of the thoracic spine done yesterday shows an acute compression fracture of T5 and T8. Chest x-ray shows ET tube in 4.3 cm above the addie, that is ideal. No other changes. ASSESSMENT: 1. Owfhr-[id number] respiratory failure. 2. Chronic obstructive pulmonary disease exacerbation. 3. Leukocytosis. 4. Acute thoracic compression fracture of T5 and T8. 5. Bipolar disorder. 6. Osteoporosis. 7. Hypertension. 8. Hyperlipidemia. PLAN: At present time is to continue mechanical ventilation and wean her off as tolerated. She is on Diprivan for sedation. She is on bronchodilators, on steroids. Continue IV antibiotics. Continue pain control. Critical Care, Dr. Austin is following the patient with me. I am going to probably get Infectious Disease involved on the case. The overall prognosis of the patient is guarded. I spent more than 40 minutes, examining the patient, reviewing overnight event, lab results and x-rays, and continued her care. MD MYLES Bass/[facility] /[id number]
[2019-11-13] MEDS: ALBUTEROL/IPRATROPIUM 3 ML NEB NEB SCH ×4 (11:45→23:55)
[2019-11-13] MEDS ORDERED: FENTANYL CITRATE INJ 2,000 MCG in SODIUM CHLORIDE 0.9% 250ML 210 ML IV PRN (15:15)
[2019-11-13] MEDS: FENTANYL 2,000 MCG/250 ML BAG IV PRN ×2 (15:34→22:00)
--- NOTE | 2019-11-13 15:58 | Diagnostic Imaging Report ---
X-ray chest AP portable History: Intubation Comparison: 11/13/2019 at 5:53 AM Findings: An endotracheal tube is seen with the tip at the thoracic inlet. This is an acceptable position. The nasogastric tube is seen coursing down the expected path but the tip is excluded. A right IJ central venous line remains unchanged the tip overlying SVC. On this exam there is apparent cardiomegaly. This is because of technical reasons. Right costophrenic angle is excluded. There is a generalized increase in the opacity of the right hemithorax suggesting a layering right pleural effusion. There is no left pleural effusion. There is no pneumothorax. The previously seen right upper lung zone opacity is not visualized on this exam. Impression: The previously seen opacity in the right upper lung is no longer visualized. There is asymmetric increased opacity of the right hemithorax raising the possibility of a layering right pleural effusion. No change in other tubes and lines. Signed by: Renny Gomez MD on 11/13/2019 3:55 PM
--- NOTE | 2019-11-13 16:10 | NUR ---
WOUND CARE SCREENING CONSULT FOR 64 YO FEMALE HX OF INTACTABLE BACK PAIN AND COPD. SAMI SCALE IS 11 ON STRICT PUP STATUS AND INTERVENTIONS LABS: WBC- 13.75 HGB- 11.8 ALBUMIN 6.1 SKIN ASSESSMENT COMPLETE PATIENT PRESENTS WITH: 1)LEFT LOWER BACK ABRASION FROM RUPTURED BLISTER. MEASURING 1 CM X 1 CM X 0.1 CM; 100% PINK GRANULATION. RECOMMENDATIONS: NURSING TO CLEAN LEFT LOWER BACK ABRASION WITH NORMAL SALINE , PAT DRY WITH 4X4 GAUZE, PAINT WITH BETADINE AND APPLY AN ALLEVYN DRESSING DAILY. NURSING TO CONTINUE TO MONITOR PATIENT AND KEEP SKIN CLEAN AND FREE FROM STOOL OR IRRITATING MOISTURE AND CONTINUE TO FOLLOW STRICT PUP INTERVENTION DAILY. NURSING TO CONTINUE REPOSITION PT SIDE TO SIDE EVERY TWO HOURS. NURSING TO MAINTAIN AN ALTERNATING PRESSURE MATTRESS. NURSING TO CONTINUE TO OFFLOAD FEET AND HEELS AT ALL TIMES WITH PILLOW SUSPENSION WHEN IN BED. NURING TO APPLY BILATERAL HEEL PROTECTORS WHILE IN BED. NURSIGN TO CONTINUE TO ASSIST PT NUTRITONAL INTAKE TO ENSURE PROPER REQUIREMENTS FOR HEALING. NURSING TO CONSULT WOUND CARE NEEDED. Addendum: 11/13/19 at 1614 by Scarlet Jean-Baptiste RN Amended: Links added.
[2019-11-13 17:03] LABS: CREATINE KINASE MB 3.9 ng/mL (0-5.0)
[2019-11-13] MEDS: CEFEPIME 1GM/NS 0.9% 50 ML 50 ML IV SCH (17:04)
[2019-11-13] MEDS: ENOXAPARIN SOD INJ 40 MG/0.4 ML SYR SC SCH (18:05)
[2019-11-13] MEDS: METRONIDAZOLE 500MG/NS 100ML 100 ML IV SCH (18:05)
--- NOTE | 2019-11-13 18:43 | History and Physical ---
REASON FOR CONSULTATION: Fever. HISTORY OF PRESENT ILLNESS: This patient, who is a 64-year-old white female came to the emergency room because she is not feeling well. The patient, who has history of COPD, obesity, hypertension, on oxygen, osteoporosis, bipolar disorder, and hyperlipidemia. The patient was in the hospital about a week ago. The patient comes in because she was not feeling well. She is weak and the patient had an MRI, showed compression fracture at T5, T8 and the patient has been seen by pain management. She was admitted, brought to the emergency room and had to be intubated. She is currently intubated and comfortable. The patient is currently noncommunicative because she is intubated and sedated. PAST MEDICAL HISTORY: As above. PAST SURGICAL HISTORY: Cholecystectomy and hysterectomy. ALLERGIES: KEFLEX. SOCIAL HISTORY: There is no drug abuse or alcohol abuse, but she is a smoker. REVIEW OF SYSTEMS: Could not be obtained. PHYSICAL EXAMINATION: GENERAL: She is intubated and sedated. HEENT: She is not icteric. NECK: Supple. CHEST: Few crackles. COR: S1 and S2. No S3, S4, or murmur. ABDOMEN: Soft. Bowel sounds present. No tenderness. EXTREMITIES: No edema. SKIN: No rash. The patient, who is currently on steroid. LABORATORY DATA: Her blood culture is pending. Her white count 13.7 and hemoglobin 11. Chest x-ray showed possibility of right upper lobe infiltrate today, but yesterday there was no infiltrate. IMPRESSION: 1. Concerned about aspiration pneumonia. 2. Respiratory failure. 3. Chronic obstructive pulmonary disease. 4. Leukocytosis. 5. Bipolar disorder. 6. Osteoporosis. 7. Hyperlipidemia. We will discuss with Internal Medicine. We will try to get some old records. Further recommendations to follow. In the meantime, we will put the patient on cefepime and Flagyl. MD ESTEPHANIE Murdock/[facility] /[id number]
--- NOTE | 2019-11-13 19:00 | NUR ---
Report received from Mikaela Valdez RN.
[2019-11-13] MEDS: METHYLPREDNISOLONE SOD SUCC 40 MG/ML VIAL 1ML IV SCH (21:47)
[2019-11-14] VITALS (18 sets, daily range): BP systolic 84–155; BP diastolic 48–121
[2019-11-14] MEDS: METRONIDAZOLE 500MG/NS 100ML 100 ML IV SCH ×3 (02:22→18:47)
[2019-11-14] MEDS: PROPOFOL IV EMULSION 10 MG/ML 50 ML VIAL IV SCH ×2 (03:07→06:36)
[2019-11-14] MEDS: ALBUTEROL/IPRATROPIUM 3 ML NEB NEB SCH ×5 (03:40→23:30)
[2019-11-14] MEDS: FENTANYL 2,000 MCG/250 ML BAG IV PRN (04:35)
[2019-11-14] MEDS: CEFEPIME 1GM/NS 0.9% 50 ML 50 ML IV SCH ×2 (05:17→18:47)
--- NOTE | 2019-11-14 05:52 | NUR ---
Am blood specimen collected and delivered to lab.
[2019-11-14 06:05] LABS: BASOPHILS % 0.2 % (0.0-1.0); EOSINOPHILS % 0.1 % (0.0-6.0); HEMATOCRIT 34.8 % (34.2-44.1); HEMOGLOBIN 10.8 g/dL (12.0-16.0); LYMPHOCYTES # (AUTO) 1.2 (1.0-3.2); LYMPHOCYTES % 11.3 % (18.0-39.1); MEAN CORPUSCULAR HEMOGLOBIN 28.4 pg (28-32); MEAN CORPUSCULAR VOLUME 91.6 fL (81-99); MONOCYTES # (AUTO) 0.4 (0.2-0.8); MONOCYTES % 3.9 % (4.4-11.3); NEUTROPHILS # (AUTO) 9.2 (2.1-6.9); PLATELET COUNT 220 x10e3/uL (140-360); RED CELL DISTRIBUTION WIDTH 13.2 % (11.7-14.4)
[2019-11-14 06:22] LABS: ANION GAP 11.9 mmol/L (8-16); BLOOD UREA NITROGEN 21 mg/dL (7-26); BUN/CREATININE RATIO 30 (6-25); CALCIUM 9.1 mg/dL (8.4-10.2); CARBON DIOXIDE 30 mmol/L (22-29); CHLORIDE 99 mmol/L (98-107); CREATININE, SERUM 0.69 mg/dL (0.57-1.11); EST GLOMERULAR FILTRATION RATE > 60 ML/MIN (60-); GLUCOSE 96 mg/dL (74-118); POTASSIUM 3.9 mmol/L (3.5-5.1); SODIUM 137 mmol/L (136-145)
--- NOTE | 2019-11-14 07:27 | Diagnostic Imaging Report ---
EXAMINATION: CHEST SINGLE (PORTABLE) INDICATION: ^INTUBATED ^[id number] ^[id number] COMPARISON: 11/13/2019 FINDINGS: AP view TUBES and LINES: Stable endotracheal tube, right IJ central line and partially seen enteric tube. LUNGS: Lungs are well inflated. Increased right upper lung field hazy opacification. Mild central vascular congestion. PLEURA: No pleural effusion or pneumothorax. HEART AND MEDIASTINUM: The cardiomediastinal silhouette is unremarkable. BONES AND SOFT TISSUES: No acute osseous lesion. Soft tissues are unremarkable. UPPER ABDOMEN: No free air under the diaphragm. IMPRESSION: Increased right upper lobe hazy opacification, which could represent atelectasis or pneumonia in the appropriate clinical context. Signed by: Dr. Geovanny Euceda MD on 11/14/2019 7:24 AM
[2019-11-14] MEDS: PANTOPRAZOLE 40 MG 10ML VIAL IV SCH (10:53)
[2019-11-14] MEDS: DULOXETINE HCL 30 MG DELAYED RELEASE PO SCH (10:53)
[2019-11-14] MEDS: METHYLPREDNISOLONE SOD SUCC 40 MG/ML VIAL 1ML IV SCH ×2 (10:53→21:10)
[2019-11-14] MEDS: LAMOTRIGINE 100 MG TAB PO SCH (10:54)
[2019-11-14] MEDS: DOXYCYCLINE 100MG/NS 100ML 100 ML IV SCH (11:51)
--- NOTE | 2019-11-14 13:32 | Progress Note ---
DATE: 11/14/2019 CHIEF COMPLAINT/HISTORY OF PRESENT ILLNESS: This is a 64-year-old white woman, whose primary treating diagnosis is acute respiratory failure, necessitating ventilator support secondary to COPD exacerbation. On admission, the patient had a chest film performed, which revealed findings consistent with right upper lobe pneumonia. The patient was on the ventilator overnight, but was successfully extubated this morning. The patient states her breathing is improved. The patient is very interested in tobacco cessation. The patient is currently receiving intravenous cefepime and metronidazole, which she is tolerating quite well. REVIEW OF SYSTEMS: As per HPI. PHYSICAL EXAMINATION: GENERAL: She is alert. She is dyspneic, but she does not appear to be in any obvious respiratory distress. She is somewhat restless. VITAL SIGNS: Height 5 feet 4 inches, weight is 180 pounds, BMI 32. Blood pressure 102/76, pulse 86, respiratory rate is 24, temperature 98.1, and oxygen saturation is 96% on 12 L oxygen. INTEGUMENT: Skin is warm and dry. No pallor, jaundice, or diaphoresis. HEENT: Anicteric sclerae. Moist mucous membranes. NECK: Supple. No evidence of jugular venous distention CARDIOVASCULAR: Distant heart sounds. Tachycardic rate, regular rhythm. LUNGS: The patient has crackles and wheezing bilaterally. ABDOMEN: Obese, benign. EXTREMITIES: No edema or deformity. NEUROLOGIC: Intact. DIAGNOSES: 1. Right-sided pneumonia. 2. Chronic obstructive pulmonary disease exacerbation. 3. Acute respiratory failure, resolved. 4. Tobacco abuse. PLAN: 1. Commend the patient for wellness to quit smoking tobacco. 2. We will order nicotine patch. 3. Continue intravenous antibiotics for her pneumonia. 4. Watch the patient in the Intensive Care Unit for the next 24 hours since she was just extubated. Continue nebulized bronchodilators and intravenous methylprednisone for the patient's COPD exacerbation. I spent 25 minutes in the care of this intensive care unit patient. MD SEBLE Nicholas/[facility] /[id number] HERRER[place]
--- NOTE | 2019-11-14 15:12 | Progress Note ---
DATE: SUBJECTIVE: Ms. De La Cruz is off the ventilator. Alert and confused. REVIEW OF SYSTEMS: Otherwise unremarkable. LABORATORY DATA: White count down to 10.9, hemoglobin of 10.08. Sodium 137, potassium of 3.9 with a creatinine of 0.69. Blood cultures are negative. PHYSICAL EXAMINATION: GENERAL: She is alert, confused. VITAL SIGNS: Stable. Afebrile. HEENT: She is not icteric. NECK: Supple. CHEST: A few crackles. COR: S1 and S2. No S3, S4, or murmur. ABDOMEN: Soft. Bowel sounds present. EXTREMITIES: No edema. SKIN: No rash. IMPRESSION: Aspiration pneumonia, better. Respiratory failure, improving. Chronic obstructive pulmonary disease. Bipolar disorder. From Infectious Disease point of view, improving. Can probably discontinue the antibiotic sooner. She is currently on metronidazole, doxycycline, and cefepime. We will discontinue doxycycline and discontinue metronidazole. She is on COPD. She is on steroid per Pulmonary to wean down as she fits. We will follow with you. MD ESTEPHANIE Murdock/[facility]I /[id number]
--- NOTE | 2019-11-14 15:45 | NUR ---
Nutrition Intervention Note RD Recommendation(s) for Physician: -Recommend advancing to a cardiac diet and swallow evaluation be performed prior to PO intake -If diet is unable to be advanced, recommend resuming Vital High Protein with a goal rate of 50 mL/hr (provides 1200 kcal, 105 g protein) Plan of Care: RD following, monitoring for tolerance and adequacy Nutrition reason for involvement: enteral nutrition diet order RD Assessment (11/14/19) Pt is a 64 year old female admitted with intractable back pain and COPD. Pt was intubated after arrival to the emergency room. Pt has a diet order of Vital High Protein @ 40 mL/hr. Pt was extubated today per MD note. Will continue to monitor unless consulted sooner. Principal Problems/Diagnoses: intractable back pain and COPD PMH: COPD, obesity, hypertension, on oxygen, osteoporosis, bipolar disorder, and hyperlipidemia I/O: 2214/780 GI: soft, non-tender, round abdomen Skin: left lower back abrasion per wound care note Labs: Na 137, K 3.9, BUN 21, Cr 0.69 Meds: protonix, methylprednisolone, propofol, fentanyl, zofran, dilaudid Ht: 64 inchs Wt: 188 lbs BMI: 32.3 kg/m2 IBW: 120 lbs Malnutrition Evaluation (11/14/19) Unable to assess. Will re-evaluate at follow-up as appropriate. Nutrition Prescription (Diet Order): Vital High Protein @ 40 mL/hr Estimated Nutritional Needs: 5617-2484 calories/day (22-25 kcal/kg IBW) 82-109 g protein/day (1.5-2 g pro/kg IBW) Diet Adequacy: Not meeting calorie needs, Not meeting protein needs Tolerance: Tolerance pending Diet Education Needs Assessment: Diet education not indicated, patient on temporary/transition diet. Nutrition Care Level: moderate Nutrition Diagnosis: Inadequate oral intake related to pts medical status as evidenced by pt requiring mechanical ventilation and enteral nutrition. Goal: Patient will meet 75-100% of estimated needs by follow up Progress: N/A Interventions: - Composition, Rate, Route, modified diet, Recommended Modifications Monitoring/Evaluation: -Total energy intake, Total protein intake, Formula/Solution, Modified diet, Weight change Signed: Michelle Londono, RD, LD
[2019-11-14] MEDS: ENOXAPARIN SOD INJ 40 MG/0.4 ML SYR SC SCH (18:47)
[2019-11-14] MEDS: NICOTINE 21 MG/EA PATCH TOP SCH (18:47)
[2019-11-14] MEDS: HYDROMORPHONE 1MG/1ML INJ IV PRN ×2 (18:55→22:53)
--- NOTE | 2019-11-14 22:53 | NUR ---
Medicated for c/o pain.
[2019-11-14] MEDS: ONDANSETRON HCL INJ 2MG/ML 2ML 2 MG/ML VIAL IV PRN (23:35)
[2019-11-15] VITALS (16 sets, daily range): BP systolic 129–161; BP diastolic 70–103
[2019-11-15] MEDS: HYDROMORPHONE 1MG/1ML INJ IV PRN ×3 (02:17→18:58)
--- NOTE | 2019-11-15 02:17 | NUR ---
Medicated for c/o pain.
[2019-11-15] MEDS: METRONIDAZOLE 500MG/NS 100ML 100 ML IV SCH (02:19)
[2019-11-15] MEDS: ALBUTEROL/IPRATROPIUM 3 ML NEB NEB SCH ×6 (03:50→23:08)
--- NOTE | 2019-11-15 04:21 | NUR ---
Central line drsg coming off. Redressed with new kit.
[2019-11-15 05:18] LABS: BASOPHILS % 0.1 % (0.0-1.0); HEMATOCRIT 35.7 % (34.2-44.1); HEMOGLOBIN 11.4 g/dL (12.0-16.0); LYMPHOCYTES # (AUTO) 1.1 (1.0-3.2); LYMPHOCYTES % 7.6 % (18.0-39.1); MEAN CORPUSCULAR HEMOGLOBIN 29.5 pg (28-32); MEAN CORPUSCULAR HGB CONC 31.9 g/dL (31-35); MEAN CORPUSCULAR VOLUME 92.5 fL (81-99); MONOCYTES # (AUTO) 0.8 (0.2-0.8); MONOCYTES % 5.8 % (4.4-11.3); NEUTROPHILS # (AUTO) 12.3 (2.1-6.9); PLATELET COUNT 253 x10e3/uL (140-360); RED BLOOD COUNT 3.86 x10e6/uL (3.6-5.1); RED CELL DISTRIBUTION WIDTH 13.2 % (11.7-14.4)
[2019-11-15] MEDS: CEFEPIME 1GM/NS 0.9% 50 ML 50 ML IV SCH ×2 (05:30→18:58)
[2019-11-15 05:48] LABS: ALANINE AMINOTRANSFERASE 24 IU/L (0-55); ALBUMIN 3.3 g/dL (3.5-5.0); ALBUMIN/GLOBULIN RATIO 1.1 (0.8-2.0); ALKALINE PHOSPHATASE 88 IU/L (40-150); ANION GAP 11.1 mmol/L (8-16); BLOOD UREA NITROGEN 17 mg/dL (7-26); BUN/CREATININE RATIO 29 (6-25); CALCIUM 8.9 mg/dL (8.4-10.2); CARBON DIOXIDE 34 mmol/L (22-29); CHLORIDE 101 mmol/L (98-107); CREATININE, SERUM 0.58 mg/dL (0.57-1.11); EST GLOMERULAR FILTRATION RATE > 60 ML/MIN (60-); GLUCOSE 101 mg/dL (74-118); POTASSIUM 4.1 mmol/L (3.5-5.1); SODIUM 142 mmol/L (136-145)
--- NOTE | 2019-11-15 08:29 | Diagnostic Imaging Report ---
Examination: Single AP view of the chest. COMPARISON: November 14, 2019 INDICATION: Right-sided pneumonia DISCUSSION: Lines/tubes: Right IJ catheter stable. Enteric and endotracheal tubes removed. Lungs: No consolidation. Pleura: No pleural effusion or pneumothorax. Heart and mediastinum: The heart and the mediastinum are unremarkable. Bones and soft tissues: No acute bony abnormalities. IMPRESSION: 1. No acute cardiopulmonary abnormalities. Signed by: Dr. Mo Younger M.D. on 11/15/2019 8:26 AM
[2019-11-15] MEDS: PANTOPRAZOLE 40 MG 10ML VIAL IV SCH (09:00)
[2019-11-15] MEDS: LAMOTRIGINE 100 MG TAB PO SCH (09:00)
[2019-11-15] MEDS: DULOXETINE HCL 30 MG DELAYED RELEASE PO SCH (09:00)
[2019-11-15] MEDS: NICOTINE 21 MG/EA PATCH TOP SCH (12:11)
--- NOTE | 2019-11-15 12:21 | Progress Note ---
DATE: 11/15/2019 CHIEF COMPLAINT/HISTORY OF PRESENT ILLNESS: This is a 64-year-old white woman, whose primary treating diagnosis is COPD exacerbation secondary to right-sided pneumonia. The patient also heavy tobacco smoker. The patient states she no longer wants to smoke tobacco. The patient states she feels much better today. The patient was extubated yesterday morning without incident. White blood cell count today is 14,200 with 86% segmenters. She is receiving methylprednisone 20 mg intravenous every 12 hours. The patient's chemistries are unremarkable. Chest film performed this morning did not reveal any obvious cardiopulmonary abnormality though. REVIEW OF SYSTEMS: As per HPI. PHYSICAL EXAMINATION: GENERAL: She is awake and alert. She is very talkative and restless. She is pleasant and cooperative to exam. She does not appear to be in any respiratory distress. VITAL SIGNS: Blood pressure is 130/100, pulse 110, respiratory rate 24, and oxygen saturation 97% on 7 L oxygen, temperature is 98.3. She has been afebrile for over 48 hours. Height 5 feet 2 inches, weight 180 pounds, BMI is 35. INTEGUMENT: Skin is warm and dry. No pallor, jaundice, or diaphoresis. HEENT: Anicteric sclerae with moist mucous membranes. The patient has a hoarse smoker's voice. NECK: Supple. CARDIOVASCULAR: Tachycardic rate with regular rhythm. LUNGS: The patient has wheezing bilaterally with improved air entry in the right lung field, still very tight in the left lung field. ABDOMEN: Obese and benign. EXTREMITIES: No edema or deformity. NEUROLOGICAL: Intact. DIAGNOSES: 1. Right-sided pneumonia, resolving. 2. COPD exacerbation, resolving. 3. Moderate to severe COPD. 4. Acute respiratory failure, resolved. 5. Tobacco abuse. 6. Obesity, BMI 35. PLAN: 1. Command the patient for wellness, quit smoking and tobacco. 2. We will continue nicotine patch to help with tobacco cessation. 3. We will discontinue telemetry. 4. Remove Nieves catheter. 5. Transfer the patient to regular room. 6. We will continue nebulized bronchodilators and intravenous methylprednisone for the patient's COPD exacerbations. 7. Continue intravenous antibiotics for pneumonia. I spent 25 minutes in the care of this intensive care unit. MD SEBLE Nicholas/MAGALI /[id number]
[2019-11-15] MEDS: ENOXAPARIN SOD INJ 40 MG/0.4 ML SYR SC SCH (18:58)
--- NOTE | 2019-11-15 19:13 | NUR ---
walking rounds complete, pt stable at shift change. report given to oncoming nurse.
--- NOTE | 2019-11-15 19:15 | NUR ---
Patient received sitting up in bed. AAO x 4. Patient had no complaints of pain. Respirations even and non-labored on 5L NC. Fall precautions implemented. Patient instructed to cll for assistance when needed. Call light within reach.
[2019-11-15] MEDS: METHYLPREDNISOLONE SOD SUCC 40 MG/ML VIAL 1ML IV SCH (21:00)
[2019-11-16] VITALS (8 sets, daily range): BP systolic 142–185; BP diastolic 66–88
[2019-11-16] MEDS: HYDROMORPHONE 1MG/1ML INJ IV PRN ×3 (00:11→15:10)
[2019-11-16] MEDS: ALBUTEROL/IPRATROPIUM 3 ML NEB NEB SCH ×5 (02:33→20:15)
[2019-11-16] MEDS ORDERED: SODIUM CHLORIDE 0.9% 250ML 250 ML ONE (05:57)
[2019-11-16 06:12] LABS: BASOPHILS % 0.1 % (0.0-1.0); HEMATOCRIT 37.4 % (34.2-44.1); HEMOGLOBIN 11.7 g/dL (12.0-16.0); LYMPHOCYTES # (AUTO) 1.5 (1.0-3.2); LYMPHOCYTES % 13.3 % (18.0-39.1); MEAN CORPUSCULAR HGB CONC 31.3 g/dL (31-35); MEAN CORPUSCULAR VOLUME 92.6 fL (81-99); MONOCYTES # (AUTO) 0.8 (0.2-0.8); MONOCYTES % 6.7 % (4.4-11.3); NEUTROPHILS # (AUTO) 8.8 (2.1-6.9); NEUTROPHILS % 79.2 % (38.7-80.0); PLATELET COUNT 232 x10e3/uL (140-360); RED BLOOD COUNT 4.04 x10e6/uL (3.6-5.1); RED CELL DISTRIBUTION WIDTH 13.2 % (11.7-14.4)
[2019-11-16 06:38] LABS: ALANINE AMINOTRANSFERASE 27 IU/L (0-55); ALBUMIN 3.3 g/dL (3.5-5.0); ALBUMIN/GLOBULIN RATIO 1.1 (0.8-2.0); ALKALINE PHOSPHATASE 96 IU/L (40-150); ANION GAP 11.4 mmol/L (8-16); BLOOD UREA NITROGEN 18 mg/dL (7-26); BUN/CREATININE RATIO 28 (6-25); CALCIUM 9.3 mg/dL (8.4-10.2); CARBON DIOXIDE 38 mmol/L (22-29); CHLORIDE 96 mmol/L (98-107); CREATININE, SERUM 0.64 mg/dL (0.57-1.11); EST GLOMERULAR FILTRATION RATE > 60 ML/MIN (60-); GLUCOSE 99 mg/dL (74-118); POTASSIUM 4.4 mmol/L (3.5-5.1); SODIUM 141 mmol/L (136-145)
[2019-11-16] MEDS: CEFEPIME 1GM/NS 0.9% 50 ML 50 ML IV SCH ×2 (06:38→18:20)
--- NOTE | 2019-11-16 07:00 | NUR ---
Patient resting comfortably. Shift report given to oncoming nurse regarding patient's status.
--- NOTE | 2019-11-16 07:15 | NUR ---
Received patient lying in bed with eyes closed. Respiration even and unlabored without SOB. Call light in reach.
[2019-11-16] MEDS: METHYLPREDNISOLONE SOD SUCC 40 MG/ML VIAL 1ML IV SCH ×2 (08:05→21:14)
[2019-11-16] MEDS: PANTOPRAZOLE 40 MG 10ML VIAL IV SCH (08:05)
[2019-11-16] MEDS: LAMOTRIGINE 100 MG TAB PO SCH (08:05)
[2019-11-16] MEDS: NICOTINE 21 MG/EA PATCH TOP SCH (08:05)
[2019-11-16] MEDS: DULOXETINE HCL 30 MG DELAYED RELEASE PO SCH (08:05)
[2019-11-16] MEDS ORDERED: PROMETHAZINE HCL 25 MG SUPP PR PRN (08:45)
[2019-11-16] MEDS ORDERED: SUMATRIPTAN SUCCINATE 25 MG TAB PO PRN (08:45)
[2019-11-16] MEDS ORDERED: AMLODIPINE BESYLATE 10 MG TAB PO SCH (09:00)
[2019-11-16] MEDS ORDERED: VENLAFAXINE HCL 75 MG CAPCR PO SCH (09:00)
--- NOTE | 2019-11-16 09:22 | Progress Note ---
DATE: 11/16/2019 SUBJECTIVE: Ms. De La Cruz is a 64-year-old female with history of COPD, oxygen dependent, hypertension, osteoporosis, bipolar disorder, hyperlipidemia, who came to the clinic complaining of severe back pain. She was unable to walk, so she was sent to the emergency room for admission. In the emergency room, she got some pain medications and developed hypercapnia. She had to be intubated and transferred to ICU. She was successfully extubated and transferred to the floor during the weekend. PHYSICAL EXAMINATION: GENERAL: Today, she is awake and alert. She is doing much better. VITAL SIGNS: Temperature is 98.1, blood pressure 159/79. HEART: Regular rate. LUNGS: Decreased breath sounds bilaterally. ABDOMEN: Distended and soft. LABORATORY DATA: On the blood work; white count is 11.12, hemoglobin is 11.7, hematocrit 37.4. Potassium 4.4, creatinine is 0.64, and glucose is 99. Saravia virus came nondetected. Blood cultures were negative. Chest x-ray done yesterday shows no acute cardiopulmonary abnormalities. ASSESSMENT: 1. Xtibm-hh-dtoidlv respiratory failure. 2. Chronic obstructive pulmonary disease exacerbation. 3. Leukocytosis, improving. 4. Acute thoracic compression fracture of T5 and T8. 5. Bipolar disorder. 6. Osteoporosis. 7. Hypertension. 8. Hyperlipidemia. 9. Tobacco use. PLAN: At present time is to continue neb treatments, IV antibiotics, and steroids. We are going to try to get an Orthopedic consult for evaluation of her compression fractures. Continue on nicotine patch. Advice about quitting smoking was already discussed with the patient several times. We continue to monitor respiratory status. We will wait for Orthopedic evaluation. The patient is feeling better and she is clinically improving. She probably will need 24-48 more hours in the hospital. All this was discussed with the patient. All questions were answered to satisfaction. MD MYLES Bass/MAGALI /[id number]
--- NOTE | 2019-11-16 10:42 | NUR ---
ASSESSMENT: Spiritual concern Pt filled with thankfulness. Pt states she "wouldn't be alive" if it weren't for God and her physician. Pt states her bala has been renewed. Intervention: Provided unhurried pastoral listening. Facilitated illness review and storytelling. Provided prayer. Outcome: Pt expressed appreciation for visit. No need to follow at this time. ANIA FRANKLIN [facility] O: [phone]
[2019-11-16] MEDS: FENOFIBRATE 145 MG TAB PO SCH (10:57)
--- NOTE | 2019-11-16 12:04 | Progress Note ---
DATE: SUBJECTIVE: The patient is seen and evaluated, available labs and notes reviewed. REVIEW OF SYSTEMS: No nausea, vomiting, fever, chills, chest pain, or shortness of breath. The patient states that her breathing has improved significantly, but remains with some wheezing. OBJECTIVE: VITAL SIGNS: Temperature is 96.8, pulse is 114, respirations 20, and blood pressure 169/76. GENERAL: Alert and oriented x3. CV: S1-S2. CHEST: Equal expansion. Bilateral wheezes. No acute distress. ABDOMEN: Soft, obese, and nontender. HEENT: Moist. No pallor. No JVD. EXTREMITIES: No significant edema. Moves all. MEDICATIONS: Medication list reviewed. As far as Infectious Disease point of view, the patient is on cefepime. LABORATORY DATA: White count of 11.12, hemoglobin 11.7, and platelet 232. Coronavirus not detected on 11/12/2019. MICROBIOLOGY: Blood culture negative on 11/12/2019. RADIOLOGY STUDIES: No new radiology studies available. The patient had a chest x-ray on 11/14 showed no acute cardiopulmonary abnormalities. ASSESSMENT AND PLAN: 1. Chronic obstructive pulmonary disease. 2. Aspiration pneumonia. 3. Status post respiratory failure. 4. Bipolar disorder. 5. Obesity. 6. Leukocytosis, improved. Remains on cefepime. Continue with antibiotic at this point. Further management of this patient is based on daily findings on laboratory and physical examination. Discussed with Dr. Pruett in details. Please refer to chart for more information. Dictated by Hudson Archuleta PA-C (Al) Ezequiel Pruett MD /MODL /[id number]
[2019-11-16 15:41] LABS: BILIRUBIN,URINE NEGATIVE (NEGATIVE); CLARITY,URINE SL CLOUDY (CLEAR); COLOR,URINE STRAW (YELLOW); KETONES,URINE NEGATIVE (NEGATIVE); LEUKOCYTE ESTERASE ,URINE NEGATIVE (NEGATIVE); NITRITE,URINE NEGATIVE (NEGATIVE); PROTEIN,URINE DIPSTICK NEGATIVE (NEGATIVE); URINE UROBILINOGEN 0.2 mg/dL (0.2 - 1)
[2019-11-16 15:44] LABS: AMPHETAMINES SCREEN,URINE NEGATIVE (NEGATIVE); BENZODIAZEPINES SCREEN,URINE NEGATIVE (NEGATIVE); PHENCYCLIDINE SCREEN,URINE NEGATIVE (NEGATIVE)
[2019-11-16 15:56] LABS: BACTERIA,URINE FEW /HPF; RBC,URINE 21-50 /HPF (0-5)
[2019-11-16] MEDS: VENLAFAXINE HCL 75 MG TAB PO SCH (18:20)
[2019-11-16] MEDS: QUETIAPINE FUMARATE 100 MG TAB PO SCH (18:21)
[2019-11-16] MEDS: ENOXAPARIN SOD INJ 40 MG/0.4 ML SYR SC SCH (18:21)
[2019-11-16] MEDS: HYDROCODONE/APAP 5MG-325MG TAB PO PRN (18:30)
--- NOTE | 2019-11-16 19:18 | NUR ---
pt walking rounds complete, pt lying on her left side resp even and unlabored at this time. will cont to monitor call light in reach.
--- NOTE | 2019-11-16 19:18 | NUR ---
pt walking rounds complete, pt lying on her left side resp even and unflavored at this time. will cont to monitor call light in reach.
--- NOTE | 2019-11-16 19:20 | NUR ---
Report given to procedure writer. Respiration even and unlabored without SOB. Call light in reach.
[2019-11-16] MEDS ORDERED: ONDANSETRON HCL 4 MG ORAL DISINTEGRATING TAB PO PRN (20:15)
[2019-11-16] MEDS ORDERED: QUETIAPINE FUMARATE 100 MG TAB PO SCH (21:00)
[2019-11-16] MEDS ORDERED: TRAZODONE HCL 50 MG TAB PO SCH (21:00)
[2019-11-17] VITALS (9 sets, daily range): BP systolic 103–167; BP diastolic 58–90
--- NOTE | 2019-11-17 01:25 | NUR ---
pt resting comfortably, resp even and unlabored, call light in reach.
[2019-11-17] MEDS: ALBUTEROL/IPRATROPIUM 3 ML NEB NEB SCH ×6 (03:45→23:04)
[2019-11-17] MEDS: CEFEPIME 1GM/NS 0.9% 50 ML 50 ML IV SCH ×2 (06:10→17:58)
--- NOTE | 2019-11-17 07:01 | NUR ---
walking rounds complete, report given to on coming nurse. pt stable at shift change.
[2019-11-17] MEDS: PANTOPRAZOLE SOD 40 MG TABEC PO SCH (08:50)
[2019-11-17] MEDS: METHYLPREDNISOLONE SOD SUCC 40 MG/ML VIAL 1ML IV SCH (08:50)
[2019-11-17] MEDS: HYDROCHLOROTHIAZIDE 25 MG TAB PO SCH (08:50)
[2019-11-17] MEDS: VENLAFAXINE HCL 75 MG TAB PO SCH ×2 (08:50→17:58)
[2019-11-17] MEDS: TELMISARTAN 40 MG TAB PO SCH (08:51)
[2019-11-17] MEDS: LAMOTRIGINE 100 MG TAB PO SCH (08:51)
[2019-11-17] MEDS: NICOTINE 21 MG/EA PATCH TOP SCH (08:51)
[2019-11-17] MEDS: AMLODIPINE BESYLATE 5 MG TAB PO SCH (08:51)
[2019-11-17] MEDS: FENOFIBRATE 145 MG TAB PO SCH (08:51)
[2019-11-17] MEDS ORDERED: VENLAFAXINE HCL 75 MG CAPCR PO SCH (09:00)
--- NOTE | 2019-11-17 10:04 | Progress Note ---
DATE: 11/17/2019 SUBJECTIVE: Ms. De La Cruz is a 64-year-old female with history of COPD, oxygen dependent, hypertension, osteoporosis, bipolar disorder, hyperlipidemia, came to the emergency room complaining of severe back pain. She was found to have T5 and T8 compression fractures. She went into respiratory distress. She had to be intubated and transferred to ICU. She was successfully extubated and sent to the floor. She is going to go for the thoracic spine MRI today, and probably consult with neurosurgeon. PHYSICAL EXAMINATION: GENERAL: She is awake and alert. She is feeling better. VITAL SIGNS: Temperature is 97.8, blood pressure 128/72. HEART: Regular rate. LUNGS: Bilateral scattered wheezing. ABDOMEN: Distended and soft. LABORATORY DATA: White count is 11.12, hemoglobin 11.7, hematocrit 37.4. Opiates positive in the urine. Coronavirus was negative. Blood culture negative. ASSESSMENT: 1. Qkapc-dx-vhjpdey respiratory failure. 2. Chronic obstructive pulmonary disease exacerbation. 3. Leukocytosis, improving. 4. Acute thoracic compression fracture T5 and T8. 5. Bipolar disorder. 6. Osteoporosis. 7. Hypertension. 8. Hyperlipidemia. 9. Tobacco use. PLAN: At present time is to continue IV antibiotics, steroids, neb treatments. She is going to go for a thoracic spine MRI today, probably Neurosurgery consult. Continue to monitor electrolytes. Once we have this problem resolved, we will discuss with the patient discharge options. MD MYLES Bass/MAGALI /[id number]
--- NOTE | 2019-11-17 11:24 | Progress Note ---
DATE: SUBJECTIVE: The patient is seen and evaluated. Available labs and notes reviewed. REVIEW OF SYSTEMS: Some back pain that is not new, going on for some time. Apparently, the patient had an MRI done on 11/12/2019, however, it was not available until last night. The result was put in and now showing acute compression fracture at T5 and T8. PHYSICAL EXAMINATION: VITAL SIGNS: Temperature is 97, pulse 102, respiration 20, and blood pressure 166/90. GENERAL: Alert and oriented, no acute distress. CV: S1 and S2. CHEST: Equal expansion. Some wheeze bilaterally. No acute distress. ABDOMEN: Soft and nontender. No distention. HEENT: Moist. No pallor. No JVD. EXTREMITIES: No significant edema. MEDICATIONS: Medication list reviewed and as far as Infectious Disease point of view, the patient is on cefepime and methylprednisolone. LABORATORY STUDIES: No new CBC or BMP from today. Serology, coronavirus PCR 11/12/2019, not detected. MICROBIOLOGY: Blood culture negative on 11/12/2019. Sputum culture showed usual respiratory sary. RADIOLOGY STUDIES: MRI of the T-spine showed acute compression fraction at T5 and T8, resolving less than 30 and approximately 50 loss of vertebral body heights respectively. ASSESSMENT AND PLAN: 1. Chronic obstructive pulmonary disease. 2. Aspiration pneumonia. 3. Acute fracture of T-spine as mentioned above. 4. Status post respiratory failure. 5. Bipolar disorder. 6. Obesity. 7. Leukocytosis, resolved almost and last white count was 11.12 on 11/16/2019. 8. Continue with cefepime, also on methylprednisolone. Await Neurosurgery evaluation. Please refer to chart for more information. Discussed with Dr. Pruett in details. Dictated by Hudson Archuleta PA-C (Al) Ezequiel Pruett MD /MODL /[id number]
[2019-11-17] MEDS: HYDROCODONE/APAP 5MG-325MG TAB PO PRN ×2 (11:32→17:58)
--- NOTE | 2019-11-17 16:30 | NUR ---
Spoke with Dr. Abel about this consult. States that he is going to see the patient tomorrow.
--- NOTE | 2019-11-17 17:10 | NUR ---
Nutrition Intervention Note RD Recommendation(s) for Physician: -Recommend adding Cardiac diet restrictions Plan of Care: RD following, monitoring for tolerance and adequacy. Diet rec's. Nutrition reason for involvement: follow up RD Assessment 11/16: Follow up. Pt extubated and transferred to the floor over the weekend. Sitting up in bed at time of visit. Pt reports good appetite and po intake currently and [employer], noted 75-100% meal intake per chart. No wt loss reported. Pt denies any N/V/C/D, can not recall last BM and no BM recorded. Plan for thoracic spine MRI today. Chart reviewed. Will continue to monitor. (11/14/19) Pt is a 64 year old female admitted with intractable back pain and COPD. Pt was intubated after arrival to the emergency room. Pt has a diet order of Vital High Protein @ 40 mL/hr. Pt was extubated today per MD note. Will continue to monitor unless consulted sooner. Principal Problems/Diagnoses: intractable back pain and COPD PMH: COPD, obesity, hypertension, on oxygen, osteoporosis, bipolar disorder, and hyperlipidemia GI: soft, non-tender, round abdomen- no BM recorded Skin: left lower back abrasion per wound care note Labs: 11/15: Na 141, K 4.4, BUN 18, Cr 0.69, Gluc 99, Ca 9.5 Meds: norco, phenergan, tricor, protonix, abx, seroquel, solu-medrol, zofran Ht: 64 inchs Wt: 188 lbs BMI: 32.3 kg/m2 IBW: 120 lbs Malnutrition Evaluation (11/17/19) Pt does not meet criteria for malnutrition at this time. Nutrition Prescription (Diet Order): Regular diet Estimated Nutritional Needs: 1668-7634 calories/day (22-25 kcal/kg IBW) 82-109 g protein/day (1.5-2 g pro/kg IBW) Diet Adequacy: Meeting calorie needs, meeting protein needs Tolerance: Tolerating po Diet Education Needs Assessment: Diet education not indicated, patient on Regular diet. Nutrition Care Level: moderate Nutrition Diagnosis: Inadequate oral intake related to pts medical status as evidenced by pt requiring mechanical ventilation and enteral nutrition. Goal: Patient will meet 75-100% of estimated needs by follow up Progress: progressing Interventions: - fat modified diet, Recommended Modifications Monitoring/Evaluation: -Total energy intake, Total protein intake, Formula/Solution, Modified diet, Weight change Signed: Elisabeth Richardson RD, ANNA, [facility]
[2019-11-17] MEDS: ENOXAPARIN SOD INJ 40 MG/0.4 ML SYR SC SCH (17:58)
[2019-11-17] MEDS: QUETIAPINE FUMARATE 100 MG TAB PO SCH (17:58)
--- NOTE | 2019-11-17 19:03 | NUR ---
Report given to shift superintendent. Respiration even and unlabored without SOB. Call light in reach.
[2019-11-18] VITALS (7 sets, daily range): BP systolic 106–156; BP diastolic 62–114
[2019-11-18] MEDS: HYDROCODONE/APAP 5MG-325MG TAB PO PRN ×3 (01:24→14:36)
[2019-11-18] MEDS: ALBUTEROL/IPRATROPIUM 3 ML NEB NEB SCH ×6 (02:46→23:45)
[2019-11-18] MEDS: CEFEPIME 1GM/NS 0.9% 50 ML 50 ML IV SCH (05:33)
[2019-11-18] MEDS ORDERED: METHYLPREDNISOLONE SOD SUCC 40 MG/ML VIAL 1ML IV SCH (07:30)
[2019-11-18] MEDS: HYDROCHLOROTHIAZIDE 25 MG TAB PO SCH (08:35)
[2019-11-18] MEDS: LAMOTRIGINE 100 MG TAB PO SCH (08:35)
[2019-11-18] MEDS: PANTOPRAZOLE SOD 40 MG TABEC PO SCH (08:35)
[2019-11-18] MEDS: NICOTINE 21 MG/EA PATCH TOP SCH (08:35)
[2019-11-18] MEDS: FENOFIBRATE 145 MG TAB PO SCH (08:35)
[2019-11-18] MEDS: TELMISARTAN 40 MG TAB PO SCH (08:35)
[2019-11-18] MEDS: VENLAFAXINE HCL 75 MG TAB PO SCH ×2 (08:35→17:20)
[2019-11-18] MEDS: AMLODIPINE BESYLATE 5 MG TAB PO SCH (08:35)
[2019-11-18] MEDS ORDERED: SODIUM CHLORIDE 0.9% 50ML 0 ML ONE (09:28)
[2019-11-18] MEDS ORDERED: IOPAMIDOL 370 MG/ML 200 ML INFUS..BTL INJ ONE (09:28)
[2019-11-18] MEDS ORDERED: KETOROLAC TROMETHAMINE 60 MG/2 ML VIAL IM ONE (09:50)
--- NOTE | 2019-11-18 10:18 | Progress Note ---
DATE: 11/18/2019 SUBJECTIVE: Ms. De La Cruz is a 64-year-old female with history of COPD, oxygen dependent, hypertension, osteoporosis, bipolar disorder, hyperlipidemia, came to the emergency room complaining of severe back pain, went into respiratory distress. In the ER, she had to be intubated and transferred to ICU. She was successfully extubated and sent to the floor. She was found to have T5 and T8 compression fractures of her back. No Orthopedic available back here. We got our Oncology consult to rule out any type of malignancy. We will see if she can have Interventional Radiology for her compression fractures treatment. We also got Pain Management for pain control. PHYSICAL EXAMINATION: GENERAL: She is awake and alert. She is on lot of back pain. VITAL SIGNS: Temperature is 97, blood pressure 127/89. HEART: Regular rate. LUNGS: Bilateral wheezing. ABDOMEN: Distended and soft. LABORATORY DATA: On the blood work; white count 11.12, hemoglobin 11.7, hematocrit 37.4. Potassium 4.4, creatinine 0.64, glucose 99. Coronavirus was negative. Blood cultures and sputum culture so far negative. ASSESSMENT: 1. Xltrh-dn-afqheay respiratory failure. 2. Chronic obstructive pulmonary disease exacerbation. 3. Leukocytosis, improving. 4. Acute thoracic compression fracture of T5 and T8. 5. Bipolar disorder. 6. Osteoporosis. 7. Hypertension. 8. Hyperlipidemia. 9. Tobacco use. PLAN: At present time is to continue steroids, neb treatments, IV antibiotics. Interventional radiologist to see if the patient can undergo a procedure to relieve the compression fracture of T5 and T8. Pain management consult with Dr. Segal, Oncology consult with Dr. Abel to rule out malignancy. All this was discussed in detail with the patient. All questions were answered to satisfaction. MD MYLES Bass/EDWARDL /[id number]
--- NOTE | 2019-11-18 11:49 | Progress Note ---
DATE: SUBJECTIVE: The patient is seen and evaluated. Available labs and notes reviewed and discussed with the nurse and the patient. REVIEW OF SYSTEMS: Remains with back pain, but no significant change or worsening or improvement. No nausea, vomiting, fever, chills, or chest pain. Shortness of breath is actually improved. Cough improved. No diarrhea. No rash. PHYSICAL EXAMINATION: VITAL SIGNS: Temperature 97, pulse 106, respiration 19, and blood pressure 127/89. GENERAL: Alert and oriented, sitting up in the bed. CV: S1 and S2. CHEST: Equal expansion. Decreased breath sounds. No acute distress. ABDOMEN: Obese, soft, and nontender. HEENT: Moist. No pallor. No JVD. EXTREMITIES: Moves all. No significant edema. MEDICATIONS: Medication list reviewed. The patient is currently on cefepime. LABORATORY STUDIES: White count 11.12 on 11/15. Creatinine of 0.64 on 11/15. No new CBC or BMP from today. No new serology studies from today. MICROBIOLOGY: Blood culture and sputum culture negative. RADIOLOGY STUDIES: No new radiology studies available. ASSESSMENT AND PLAN: 1. Chronic obstructive pulmonary disease. 2. Aspiration pneumonia. 3. T-spine compression fracture, seems to be acute at the level of T5 and T8. Apparently, the patient's condition was evaluated by Neurosurgery and no surgical intervention as far as Neurosurgery point of view. Kyphoplasty is in the talks. Continue with pain management. 4. Hypertension. 5. Continue with cefepime. Monitor the patient clinically and follow with the labs. Discussed with Dr. Pruett in details. Dictated by Hudson Archuleta PA-C (Al) Ezequiel Pruett MD /MODL /[id number]
--- NOTE | 2019-11-18 15:52 | Diagnostic Imaging Report ---
EXAM: CT Chest WITH intravenous contrast 11/18/2019 11:40 AM INDICATION: Lung cancer COMPARISON: Chest radiograph 11/15/2019 TECHNIQUE: Chest was scanned utilizing a multidetector helical scanner from the lung apex through the level of the adrenal glands after administration of IV contrast. Coronal and sagittal reformations were obtained. Routine protocol was performed. IV CONTRAST: 100mL Isovue 370 RADIATION DOSE: Total DLP: 528 mGy*cm. Dose modulation, iterative reconstruction, and/or weight based adjustment of the mA/kV was utilized to reduce the radiation dose to as low as reasonably achievable. COMPLICATIONS: None FINDINGS: LINES/ TUBES: Right IJ nontunneled central venous catheter terminates in the superior vena cava. LUNGS AND AIRWAYS: The central airways are patent. No focal consolidation or pulmonary edema. No suspicious pulmonary nodule. PLEURA: The pleural spaces are clear. HEART AND MEDIASTINUM: The thyroid gland appears unremarkable. No supraclavicular, axillary, mediastinal, or hilar lymphadenopathy. The heart is not enlarged. No pericardial effusion. Mild scattered athetotic calcifications of the aorta, coronary arteries, and proximal great vessels. UPPER ABDOMEN: Hepatomegaly and mildly nodular liver surface contour. Status post cholecystectomy. No acute findings. BONES: Age-indeterminate T8 compression fracture. No suspicious lytic or blastic lesions. SOFT TISSUES: Bilateral saline breast implants. IMPRESSION: Age indeterminate T8 compression fracture. No focal pneumonia or pulmonary edema. No suspicious pulmonary nodule. Hepatomegaly and mildly nodular liver surface contour compatible with early hepatic cirrhosis. Signed by: Ceci Man MD on 11/18/2019 3:35 PM
[2019-11-18] MEDS: QUETIAPINE FUMARATE 100 MG TAB PO SCH (17:20)
[2019-11-18] MEDS: ENOXAPARIN SOD INJ 40 MG/0.4 ML SYR SC SCH (17:20)
--- NOTE | 2019-11-18 19:00 | NUR ---
RECEIVED PATIENT IN BEDSIDE SHIFT REPORT. PATIENT RESTING IN BED AT THIS TIME. NO PAIN REPORTED. NO S&S OF DISTRESS NOTED. O2@4L VIA NC. BED LOCKED IN LOWEST POSITION, SIDE RAILS UPX2, CALL LIGHT IN REACH.
[2019-11-19] VITALS: BP 115/65
[2019-11-19] MEDS: HYDROCODONE/APAP 5MG-325MG TAB PO PRN ×2 (02:50→09:05)
[2019-11-19] MEDS: ALBUTEROL/IPRATROPIUM 3 ML NEB NEB SCH ×3 (03:00→10:35)
[2019-11-19 04:00] VITALS: BP 132/90
[2019-11-19 07:42] VITALS: BP 132/90
[2019-11-19 07:55] VITALS: BP 152/80
[2019-11-19] MEDS ORDERED: PREDNISONE 10 MG TAB PO SCH (09:00)
[2019-11-19] MEDS: AMLODIPINE BESYLATE 5 MG TAB PO SCH (09:07)
[2019-11-19] MEDS: FENOFIBRATE 145 MG TAB PO SCH (09:07)
[2019-11-19] MEDS: HYDROCHLOROTHIAZIDE 25 MG TAB PO SCH (09:07)
[2019-11-19] MEDS: LAMOTRIGINE 100 MG TAB PO SCH (09:07)
[2019-11-19] MEDS: NICOTINE 21 MG/EA PATCH TOP SCH (09:07)
[2019-11-19] MEDS: PANTOPRAZOLE SOD 40 MG TABEC PO SCH (09:07)
[2019-11-19] MEDS: VENLAFAXINE HCL 75 MG TAB PO SCH (09:07)
[2019-11-19] MEDS: TELMISARTAN 40 MG TAB PO SCH (09:07)
[2019-11-19] MEDS ORDERED: FENTANYL 12MCG/HR PATCH TD SCH (11:45)
--- NOTE | 2019-11-19 12:00 | NUR ---
Central line was removed from right IJ with tip intact. Dressing applied to insertion site. DC instructions were discussed with the patient, Rx were given , she verbalized understanding. Pharmacist made rounds to discuss prescriptions.
--- NOTE | 2019-11-19 12:15 | Progress Note ---
DATE: REVIEW OF SYSTEMS: Complain of back pain, which has no significant change. Otherwise, no nausea, vomiting, fever or chills, chest pain, shortness of breath, headache, or rash. PHYSICAL EXAMINATION: VITAL SIGNS: Temperature 98.8, pulse 98, respiration 19, blood pressure 152/80. GENERAL: Alert and oriented, no acute distress. CV: S1-S2. CHEST: Equal expansion. Clear to auscultation. No acute distress. ABDOMEN: Soft, nontender. No distention. HEENT: Moist. No pallor. No JVD. MEDICATION: Medication is reviewed. Cefepime was stopped yesterday after discussion with Dr. Pruett. The patient received cefepime from 11/12 to 11/17. LABORATORY STUDIES: No new CBC or BMP available. Serology, no new serology. Microbiology, no new microbiology. IMAGING: CT of the chest showed age indeterminate T8 compression fracture with no focal pneumonia or pulmonary edema. No suspicious pulmonary nodules. Also, showed hepatomegaly and mildly nodular liver surface contour compatible with early hepatic cirrhosis. ASSESSMENT AND PLAN: 1. Chronic obstructive pulmonary disease. 2. Aspiration pneumonia-treated. 3. T-spine compression fracture see above radiology section. 4. Hypertension. 5. Obesity. 6. Debility. 7. Chronic back pain. Currently monitor the patient, off antibiotics. Discussed with Dr. Pruett in details. Please refer to chart for more information. Dictated by Hudson Archuleta PA-C (Al) Ezequiel Pruett MD /MODL /[id number]
--- NOTE | 2019-11-19 17:20 | Discharge Summary ---
HOSPITAL COURSE: Ms. De La Cruz is a 64-year-old female with history of chronic obstructive pulmonary disease, oxygen dependent, hypertension, osteoporosis, bipolar disorder, hyperlipidemia, who came to the emergency room complaining of severe back pain, went into respiratory distress. She had to be intubated and transferred to ICU; she was successfully extubated and transferred to the floor. She was found to have a T5 and T8 acute compression fractures due to osteoporosis. Oncology rule out any type of malignancy, so the plan is to discharge her home if it is okay with the consultants have her follow up as an outpatient for the further Interventional Radiology treatment of her fractures for a continue pain control. PHYSICAL EXAMINATION: GENERAL: She is awake and alert. VITAL SIGNS: Temperature is 98.8, blood pressure 152/80. HEART: Regular rate. LUNGS: Clear to auscultation. ABDOMEN: Distended and soft. LABORATORY DATA: On the blood work; white count 11.28, hemoglobin 11.7, hematocrit 37.4. Potassium 4.4, creatinine 0.64, glucose was 99. Blood cultures, sputum cultures negative. Had a chest CT done yesterday, that shows the patient to determine PA compression fracture. No focal pneumonia, pulmonary edema. No suspicious pulmonary nodules. Hepatomegaly and mild nodular liver surface contour compatible with hepatic cirrhosis. ASSESSMENT AND PLAN: 1. Ybiwe-kn-hviylqv respiratory failure. 2. Chronic obstructive pulmonary disease exacerbation. 3. Acute thoracic compression fracture of T5 and T8. 4. Bipolar disorder. 5. Osteoporosis. 6. Hypertension. 7. Hyperlipidemia. 8. Tobacco use. 9. Liver cirrhosis. PLAN: At present time, is to discharge the patient home if it is okay with the consultants. Continue all her home medications. Follow up with me in 1 week for referral for Interventional Radiology for her back fracture. Pain control as per pain management. Please see home medication reconciliation list. All this was discussed with the patient. All questions were answered to satisfaction. MD MYLES Bass/MODL /[id number]
== END 2019-11-19 13:00 | disposition home or self-care (01) | DRG 208 ==
LOC: ER 13:21 → ERHOLD 14:04 → MED/SURG2 19:53 → ERHOLD 20:44 → ICU 23:55 → MED/SURG2 11-15 14:50
PROVIDERS: ADMIT Internal Medicine; ATTEND Internal Medicine
PROC: 02HV33Z Insertion of Infusion Device into Superior Vena Cava, Percutaneous Approach (ICD-10-PCS; principal; 2019-11-12)
PROC: B548ZZA Ultrasonography of Superior Vena Cava, Guidance (ICD-10-PCS; principal; 2019-11-12)
PROC: 5A1945Z Respiratory Ventilation, 24-96 Consecutive Hours (ICD-10-PCS; principal; 2019-11-12)
PROC: 0BH17EZ Insertion of Endotracheal Airway into Trachea, Via Natural or Artificial Opening (ICD-10-PCS; principal; 2019-11-12)
DX: J96.22 Acute and chronic respiratory failure with hypercapnia (principal); J69.0 Pneumonitis due to inhalation of food and vomit; J44.1 Chronic obstructive pulmonary disease with (acute) exacerbation; M80.88XA Other osteoporosis with current pathological fracture, vertebra(e), initial encounter for fracture; M54.6 Pain in thoracic spine; R73.03 Prediabetes; I10 Essential (primary) hypertension; F31.9 Bipolar disorder, unspecified; F41.9 Anxiety disorder, unspecified; F32.9 Major depressive disorder, single episode, unspecified; E78.5 Hyperlipidemia, unspecified; Z99.81 Dependence on supplemental oxygen; Z90.49 Acquired absence of other specified parts of digestive tract; Z90.710 Acquired absence of both cervix and uterus; Z86.19 Personal history of other infectious and parasitic diseases; Z88.1 Allergy status to other antibiotic agents; Z88.5 Allergy status to narcotic agent; E66.9 Obesity, unspecified; F17.210 Nicotine dependence, cigarettes, uncomplicated; J96.21 Acute and chronic respiratory failure with hypoxia; Z68.32 Body mass index [BMI] 32.0-32.9, adult; K74.60 Unspecified cirrhosis of liver; Z11.59 Encounter for screening for other viral diseases
CPT/HCPCS: 31500; 36415; 36600; 71045; 71260; 72157; 72158; 74018; 80048; 80053; 80307; 81001; 82306; 82378; 82550; 82553; 82805; 83605; 83880; 84484; 85025; 85610; 85730; 87040; 87070; 87205; 87635; 93005; 94002; 94003; 94640; 94660; 97139; 99251; 99284; J0330; J0692; J1170; J1650; J1885; J2250; J2310; J2405; J2543; J2920; J2930; J7030; J7050; J7512; Q9967

== ENCOUNTER 2019-12-28 21:05 | Emergency (ER) | payer MEDICARE, OTHER ==
[~2019-12-28] VITALS: Ht 162.6 cm; Wt 85.3 kg
--- NOTE | 2019-12-28 22:26 | Emergency Department Note ---
History of Present Illnes History of Present Illness Chief Complaint: Back Pain History of Present Illness This is a 64 year old female PRESENTS TO THE ER C/O CHRONIC UPPER BACK BETWEEN SHOULDERS RADIATING DOWN BACK "FOR YEARS" BUT WORSENED IN THE PAST MONTH; PT HAS SEEN HER PAIN MANAGEMENT DOCTOR AND REPORTS " HE HAS NOT BEEN DOING ANYTHING"; REPEORTS TAKING TYLENOL #4 AND "ITS NOT HELPING";. Historian: Patient Arrival Mode: Car Onset (how long ago): year(s) (several) Location: upper back Quality: pain Radiation: Reports non-radiation Severity: severe Onset quality: gradual Duration (how long): month(s) (several years) Timing of current episode: constant Progression: worsening Chronicity: chronic Context: Denies recent illness, Denies recent surgery Relieving factors: none Exacerbating factors: none Associated symptoms: Reports denies other symptoms Treatments prior to arrival: none Past Medical/Family History Physician Review I have reviewed the patient's past medical and family history. Any updates have been documented here. Past Medical History Recent Fever: No Clinical Suspicion of Infectio: No New/Unexplained Change in Ment: No Past Medical History: Hypertension, COPD, Chronic Back Pain Other Medical History: HEP C Bipolar Past Surgical History: Cholecysctectomy, Hysterectomy Other Surgery: BLADDER, SX Social History Smoking Cessation: Current some day smoker Counseling Performed: Yes Alcohol Use: None Any Illegal Drug Use: No Other Last Tetanus: UTD Review of Systems Review of Systems Constitutional: Reports no symptoms EENTM: Reports no symptoms Cardiovascular: Reports no symptoms Respiratory: Reports no symptoms Gastrointestinal: Reports no symptoms Genitourinary: Reports no symptoms Musculoskeletal: Reports as per HPI Integumentary: Reports no symptoms Neurological: Reports no symptoms Psychological: Reports no symptoms Endocrine: Reports no symptoms Hematological/Lymphatic: Reports no symptoms Physical Exam Related Data Allergies: Coded Allergies: cephalexin (Verified Allergy, Unknown, 08/10/19) morphine (Verified Adverse Reaction, Severe, SEIZURE, 08/10/19) Triage Vital Signs Vital Signs Date Time Temp Pulse Resp B/P (MAP) Pulse Ox O2 Delivery O2 Flow Rate FiO2 12/28/19 22:15 98.8 106 20 158/68 100 Vital signs reviewed: Yes Physical Exam CONSTITUTIONAL Constitutional: Present well-developed, Present well-nourished HENT HENT: Present normocephalic, Present atraumatic, Present oropharynx clear/moist, Present nose normal HENT L/R: Present left ext ear normal, Present right ext ear normal EYES Eyes: Reports PERRL, Reports conjunctivae normal NECK Neck: Present ROM normal PULMONARY Pulmonary: Present effort normal, Present breath sounds normal CARDIOVASCULAR Cardiovascular: Present regular rhythm, Present heart sounds normal, Present capillary refill normal, Present normal rate GASTROINTESTINAL Abdominal: Present soft, Present nontender, Present bowel sounds normal GENITOURINARY Genitourinary: Present exam deferred SKIN Skin: Present warm, Present dry MUSCULOSKELETAL Musculoskeletal: Present ROM normal, Present tenderness (upper back up scan coordinator to palpation, pain also worse with movement) NEUROLOGICAL Neurological: Present alert, Present oriented x 3, Present no gross motor or sensory deficits PSYCHOLOGICAL Psychological: Present mood/affect normal, Present judgement normal Assessment & Plan Medical Decision Making MDM pt with chronic back pain, instructed to follow up with her pain management physician about pain medication not working Assessment & Plan Final Impression: (1) Chronic back pain Depart Disposition: HOME, SELF-CARE Last Vital Signs Date Time Temp Pulse Resp B/P (MAP) Pulse Ox O2 Delivery O2 Flow Rate FiO2 12/28/19 22:15 98.8 106 20 158/68 100 Home Meds Reported Medications Promethazine Hcl* (PHENERGAN SUPP*) 25 Mg Supp, 1 SUPP AL Q6HR PRN for NAUSEA 08/11/19 Omeprazole (OMEPRAZOLE) 40 Mg Capsule.dr, 40 MG PO DAILY 08/11/19 Fenofibrate Nanocrystallized (FENOFIBRATE) 145 Mg Tablet, 1 TAB PO DAILY 08/11/19 Sumatriptan Succinate (IMITREX) 25 Mg Tablet, 1 TAB PO DAILY PRN for HEADACHE 08/10/19 Mirabegron (MYRBETRIQ) 50 Mg Tab.er.24h, 50 MG PO DAILY 08/10/19 Amlodipine Besylate (AMLODIPINE BESYLATE) 10 Mg Tablet, 10 MG PO DAILY, #30 TAB 08/10/19 Venlafaxine Hcl (VENLAFAXINE HCL ER) 75 Mg Cap.er.24h, 75 MG PO BID, #30 CAP 08/10/19 Lamotrigine (LAMICTAL) 100 Mg Tab, 200 MG PO DAILY 08/10/19 Quetiapine Fumarate (QUETIAPINE FUMARATE) 100 Mg Tablet, 200 MG PO HS, #30 TAB 8/29/14 Duloxetine Hcl (CYMBALTA) 30 Mg Capsule.dr, 60 MG PO DAILY, #30 CAP 03/05/14 Albuterol Sulfate (ALBUTEROL SULFATE HFA) 8.5 Gm Hfa.aer.ad, 1 INH INH Q4HR PRN for SHORTNESS OF BREATH 03/05/14 WENCESLAO GARCIA MD Dec 28, 2019 22:26
== END 2019-12-28 22:29 | disposition home or self-care (01) ==
LOC: ER 21:05
DX: M54.6 Pain in thoracic spine (principal); G89.29 Other chronic pain; I10 Essential (primary) hypertension; J44.9 Chronic obstructive pulmonary disease, unspecified; B19.20 Unspecified viral hepatitis C without hepatic coma; Z11.59 Encounter for screening for other viral diseases; F17.210 Nicotine dependence, cigarettes, uncomplicated
CPT/HCPCS: 99282

== ENCOUNTER 2020-02-05 19:54 | Inpatient (IN) | payer OTHER ==
[~2020-02-05] VITALS: Ht 162.6 cm; Wt 71.3 kg
[2020-02-05] MEDS ORDERED: IPRATROPIUM BROMIDE INHALER 12.9 GM INH INH ONE (20:00)
[2020-02-05] MEDS ORDERED: DEXAMETHASONE SOD PHOS INJ 4 MG/ML VIAL IV ONE (20:00)
[2020-02-05] MEDS ORDERED: ALBUTEROL SULFATE HFA 8GM INHALATION AEROSOL INH ONE (20:00)
[2020-02-05 20:28] LABS: BASOPHILS % 0.3 % (0.0-1.0); HEMATOCRIT 43.5 % (34.2-44.1); HEMOGLOBIN 13.3 g/dL (12.0-16.0); LYMPHOCYTES # (AUTO) 1.6 (1.0-3.2); MEAN CORPUSCULAR HEMOGLOBIN 29.1 pg (28-32); MEAN CORPUSCULAR HGB CONC 30.6 g/dL (31-35); MEAN CORPUSCULAR VOLUME 95.2 fL (81-99); MONOCYTES # (AUTO) 0.7 (0.2-0.8); MONOCYTES % 6.1 % (4.4-11.3); NEUTROPHILS % 79.2 % (38.7-80.0); PLATELET COUNT 224 x10e3/uL (140-360); RED BLOOD COUNT 4.57 x10e6/uL (3.6-5.1); RED CELL DISTRIBUTION WIDTH 12.4 % (11.7-14.4)
--- NOTE | 2020-02-05 20:32 | Emergency Department Note ---
History of Present Illnes History of Present Illness Chief Complaint: Respiratory History of Present Illness This is a 64 year old female PRESENTS TO THE ER VIA EMS FROM HOME C/O SOB AND MIDSTERNAL CP ONSET "THE PAST COUPLE OF DAYS" WITH WORSENING SYMPTOMS TODAY; PER EMS, PT'S SPO2 WAS 74% RA AND PLACED ON 4L NC WITH SPO2 INCREASING TO 94%; PT STATES SHE WEARING HOME 4L HOME O2; HX OF COPD; QUIT SMOKING X2 MONTHS AGO . Historian: Patient, [employer] Supervisor/EMS Arrival Mode: [place] Onset (how long ago): day(s) (2) Location: chest Quality: cough, sob, jeremias pain Radiation: Reports non-radiation Severity: moderate Onset quality: gradual Duration (how long): day(s) (2) Progression: worsening Context: Denies recent illness, Denies recent surgery, Denies trauma/injury Exacerbating factors: movement Associated symptoms: Reports denies other symptoms Treatments prior to arrival: none Past Medical/Family History Physician Review I have reviewed the patient's past medical and family history. Any updates have been documented here. Past Medical History Recent Fever: No Clinical Suspicion of Infectio: No New/Unexplained Change in Ment: No Past Medical History: Hypertension, COPD, Chronic Back Pain Other Medical History: HEP C BIPOLAR Past Surgical History: Cholecysctectomy, Hysterectomy Other Surgery: BLADDER, SX Social History Smoking Cessation: Former smoker (quit 2 months ago) Alcohol Use: Occasional Any Illegal Drug Use: No Other Last Tetanus: UTD Review of Systems Review of Systems Constitutional: Reports no symptoms EENTM: Reports no symptoms Cardiovascular: Reports as per HPI Respiratory: Reports as per HPI Gastrointestinal: Reports no symptoms Genitourinary: Reports no symptoms Musculoskeletal: Reports no symptoms Integumentary: Reports no symptoms Neurological: Reports no symptoms Psychological: Reports no symptoms Endocrine: Reports no symptoms Hematological/Lymphatic: Reports no symptoms Physical Exam Related Data Allergies: Coded Allergies: cephalexin (Verified Allergy, Unknown, 08/10/19) morphine (Verified Adverse Reaction, Severe, SEIZURE, 08/10/19) Triage Vital Signs Vital Signs Date Time Temp Pulse Resp B/P (MAP) Pulse Ox O2 Delivery O2 Flow Rate FiO2 02/05/20 20:17 97.9 118 25 106/69 95 Nasal Cannula 4.0 Vital signs reviewed: Yes Physical Exam CONSTITUTIONAL Constitutional: Present well-developed, Present well-nourished, Present distressed (mild respiratory) HENT HENT: Present normocephalic, Present atraumatic, Present oropharynx clear/moist, Present nose normal HENT L/R: Present left ext ear normal, Present right ext ear normal EYES Eyes: Reports PERRL, Reports conjunctivae normal NECK Neck: Present ROM normal PULMONARY Pulmonary: Present effort normal, Present respiratory distress (mild), Present chest tenderness (mild with palpation of sternum), Present other (wheezing all 4 lung tierney) CARDIOVASCULAR Cardiovascular: Present regular rhythm, Present heart sounds normal, Present capillary refill normal, Present tachycardia GASTROINTESTINAL Abdominal: Present soft, Present nontender, Present bowel sounds normal GENITOURINARY Genitourinary: Present exam deferred SKIN Skin: Present warm, Present dry MUSCULOSKELETAL Musculoskeletal: Present ROM normal NEUROLOGICAL Neurological: Present alert, Present oriented x 3, Present no gross motor or sensory deficits PSYCHOLOGICAL Psychological: Present mood/affect normal, Present judgement normal Results Laboratory Laboratory Laboratory Tests Test 02/05/20 22:10 02/05/20 20:10 Arterial Blood pH 7.31 (7.35-7.45) Arterial Blood Partial Pressure CO2 103 mmHg (35-45) Arterial Blood Partial Pressure O2 93 mmHg (80-105) Arterial Blood HCO3 51 mmol/L (22-26) Arterial Blood Total CO2 50 Arterial Blood Oxygen Saturation 95.0 % (95-98) Arterial Blood Base Excess 25.0 mmol/L (-2 - 3) FiO2 36 % White Blood Count 11.31 x10e3/uL (4.8-10.8) Red Blood Count 4.57 x10e6/uL (3.6-5.1) Hemoglobin 13.3 g/dL (12.0-16.0) Hematocrit 43.5 % (34.2-44.1) Mean Corpuscular Volume 95.2 fL (81-99) Mean Corpuscular Hemoglobin 29.1 pg (28-32) Mean Corpuscular Hemoglobin Concent 30.6 g/dL (31-35) Red Cell Distribution Width 12.4 % (11.7-14.4) Platelet Count 224 x10e3/uL (140-360) Neutrophils (%) (Auto) 79.2 % (38.7-80.0) Lymphocytes (%) (Auto) 14.0 % (18.0-39.1) Monocytes (%) (Auto) 6.1 % (4.4-11.3) Eosinophils (%) (Auto) 0.0 % (0.0-6.0) Basophils (%) (Auto) 0.3 % (0.0-1.0) Neutrophils # (Auto) 9.0 (2.1-6.9) Lymphocytes # (Auto) 1.6 (1.0-3.2) Monocytes # (Auto) 0.7 (0.2-0.8) Eosinophils # (Auto) 0.0 (0.0-0.4) Basophils # (Auto) 0.0 (0.0-0.1) Absolute Immature Granulocyte (auto 0.05 x10e3/uL (0-0.1) Prothrombin Time 11.9 seconds (11.9-14.5) Prothromb Time International Ratio 0.84 Activated Partial Thromboplast Time 22.8 seconds (23.8-35.5) Sodium Level 141 mmol/L (136-145) Potassium Level 3.7 mmol/L (3.5-5.1) Chloride Level 85 mmol/L (98-107) Carbon Dioxide Level 44 mmol/L (22-29) Anion Gap 15.7 mmol/L (8-16) Blood Urea Nitrogen 13 mg/dL (7-26) Creatinine 0.76 mg/dL (0.57-1.11) Estimat Glomerular Filtration Rate > 60 ML/MIN (60-) BUN/Creatinine Ratio 17 (6-25) Glucose Level 162 mg/dL (74-118) Lactic Acid Level 1.6 mmol/L (0.5-2.0) Calcium Level 9.6 mg/dL (8.4-10.2) Total Bilirubin 0.4 mg/dL (0.2-1.2) Aspartate Amino Transf (AST/SGOT) 19 IU/L (5-34) Alanine Aminotransferase (ALT/SGPT) 17 IU/L (0-55) Alkaline Phosphatase 156 IU/L (40-150) Creatine Kinase 142 IU/L (29-168) Creatine Kinase MB 5.50 ng/mL (0-5.0) Troponin I 0.003 ng/mL (0-0.300) Total Protein 7.1 g/dL (6.5-8.1) Albumin 3.6 g/dL (3.5-5.0) Globulin 3.5 g/dL (2.3-3.5) Albumin/Globulin Ratio 1.0 (0.8-2.0) Laboratory Tests Test 02/05/20 20:10 Lab results reviewed: Yes Imaging Imaging results reviewed: Yes Impressions Procedure: [id number] DX/CHEST SINGLE (PORTABLE) Exam Date: 02/05/20 Exam Time: 2114 REPORT STATUS: Signed EXAMINATION: CHEST SINGLE (PORTABLE) INDICATION: ^sob,cough, chest pain COMPARISON: CT dated 11/18/2019. Radiograph dated 11/15/2019 FINDINGS: TUBES and LINES: None. LUNGS: Normal lung volumes. Unchanged hazy densities at the lung bases likely due to breast prosthesis. PLEURA: No pleural effusion or pneumothorax. HEART AND MEDIASTINUM: The cardiomediastinal silhouette is unremarkable. BONES AND SOFT TISSUES: No acute osseous lesion. Soft tissues are unremarkable. UPPER ABDOMEN: No free air under the diaphragm. IMPRESSION: No definite consolidation. Breast prostheses produce hazy densities at the lung bases, which mildly limits evaluation. A lateral view could be helpful to exclude basilar airspace disease. Signed by: Ronnie Bradley MD on 02/05/2020 10:11 PM Dictated By: RONNIE BRADLEY MD 10 Transcribed By: EILEEN on 02/05/202210 Procedures 12 Lead ECG Interpretation ECG Interpretation : ECG: ECG 1 Chief Security And Safety Officer: Interpreted by ED physician Date: Feb 05, 2020 Time: 19:59 Rhythm: sinus tachycardia Rate: tachycardia BPM: 115 QRS axis: normal ST segments normal: Yes T waves normal: Yes Other findings: no other findings Clinical Impression: non-specific ECG Critical Care Time Critcal care necessary due to: respiratory failure Critcal care time spent by me: develop tx plan w patient/surrogate, discussion w consultants, interpret cardiac output measures, evaluation patient response to tx, examination of patient, obtaining hx from patient/surrogate, order/perform tx or interventions, order/review laboratory studies, order/review radiographic studies, pulse oximetry, re-evaluation of patient condition, review of old charts Assessment & Plan Medical Decision Making MDM pt with h/o copd presents with sob, chest pain and cough, wheezing on arrival cbc, cmp, ekg, cardiac enzymes, covid 19, cxr, pt/ptt ordered to eval for pneumonia, pulmonary edema, myocardial infarction, electrolyte abnormality albuterol inh 2 puffs inh ordered dexamethasone 6 mg iv ordered PT C02 103 ON ABG, PLACED ON BIPAP FOR HYPERCARBIA, pt is alert and oriented times 3 even with co2 of 103. , PT IS NOT SEPTIC, BIPAP IS NOT FOR SEPSIS I SPOKE WITH DR JOEL COVERING FOR BOCARDO, I SPOKE WITH DR VALDIVIA(PULM)HE WANTS PT EMPIRICALLY COVERED WITH ANTIBIOTICS FOR BRONCHITIS. ZOSYN 3.375 GRAMS IV ORDERED ZITHROMAX 500 MG IV ORDERED Reassessment Reassessment time: 22:51 Reassessment ABG SHOW CO2 OF 103, PT IS STILL ALERT AND ORIENTED BUT C/O SOB, BIPAP ORDERED WILL CHEST ABD IN ONE HOUR Assessment & Plan Final Impression: (1) Hypercarbia (2) Respiratory distress (3) COPD exacerbation (4) Hypoxia Last Vital Signs Date Time Temp Pulse Resp B/P (MAP) Pulse Ox O2 Delivery O2 Flow Rate FiO2 02/05/20 20:17 97.9 118 25 106/69 95 Nasal Cannula 4.0 Home Meds Reported Medications Promethazine Hcl* (PHENERGAN SUPP*) 25 Mg Supp, 1 SUPP [place] Q6HR PRN for NAUSEA 08/11/19 Omeprazole (OMEPRAZOLE) 40 Mg Capsule.dr, 40 MG PO DAILY 08/11/19 Fenofibrate Nanocrystallized (FENOFIBRATE) 145 Mg Tablet, 1 TAB PO DAILY 08/11/19 Sumatriptan Succinate (IMITREX) 25 Mg Tablet, 1 TAB PO DAILY PRN for HEADACHE 08/10/19 Mirabegron (MYRBETRIQ) 50 Mg Tab.er.24h, 50 MG PO DAILY 08/10/19 Amlodipine Besylate (AMLODIPINE BESYLATE) 10 Mg Tablet, 10 MG PO DAILY, #30 TAB 08/10/19 Venlafaxine Hcl (VENLAFAXINE HCL ER) 75 Mg Cap.er.24h, 75 MG PO BID, #30 CAP 08/10/19 Lamotrigine (LAMICTAL) 100 Mg Tab, 200 MG PO DAILY 08/10/19 Quetiapine Fumarate (QUETIAPINE FUMARATE) 100 Mg Tablet, 200 MG PO HS, #30 TAB 03/05/14 Duloxetine Hcl (CYMBALTA) 30 Mg Capsule.dr, 60 MG PO DAILY, #30 CAP 03/05/14 Albuterol Sulfate (ALBUTEROL SULFATE HFA) 8.5 Gm Hfa.aer.ad, 1 INH INH Q4HR PRN for SHORTNESS OF BREATH 03/05/14 Medications in the ED Albuterol 2 INHALATIONS ONCE ONCE INH ; Start 02/05/20 at 20:00; Stop 02/05/20 at 20:17; Status DC Ipratropium [place] 1 gm ONCE ONCE INH ; Start 02/05/20 at 20:00; Stop 02/05/20 at 20:01; Status DC Dexamethasone Sodium Phosphate 6 mg ONCE ONCE IV ; Start 02/05/20 at 20:00; Stop 02/05/20 at 20:13; Status DC WENCESLAO GARCIA MD Feb 05, 2020 20:32
[2020-02-05 20:33] LABS: INR 0.84; PROTHROMBIN TIME 11.9 seconds (11.9-14.5)
[2020-02-05 20:38] LABS: PARTIAL THROMBOPLASTIN TIME 22.8 seconds (23.8-35.5)
[2020-02-05 20:44] LABS: ALANINE AMINOTRANSFERASE 17 IU/L (0-55); ALBUMIN 3.6 g/dL (3.5-5.0); ALKALINE PHOSPHATASE 156 IU/L (40-150); ANION GAP 15.7 mmol/L (8-16); BLOOD UREA NITROGEN 13 mg/dL (7-26); BUN/CREATININE RATIO 17 (6-25); CALCIUM 9.6 mg/dL (8.4-10.2); CHLORIDE 85 mmol/L (98-107); CREATINE KINASE 142 IU/L (29-168); CREATININE, SERUM 0.76 mg/dL (0.57-1.11); EST GLOMERULAR FILTRATION RATE > 60 ML/MIN (60-); GLUCOSE 162 mg/dL (74-118); POTASSIUM 3.7 mmol/L (3.5-5.1); SODIUM 141 mmol/L (136-145)
[2020-02-05 20:52] LABS: CARBON DIOXIDE 44 mmol/L (22-29)
--- OUTSIDE RECORDS SUMMARY | 2020-02-05 21:41 | XMS REPORT | Summary of Care ---
Author Author [facility] - Health Organization [facility] - Health Address Unknown Phone Unavailable Care Team Providers Care Supervisor Lead Refinery Name Role Phone Jimantonygabriele Johnna PCP Reason for Visit * Reason Comments Appointment Pre-Op Exam Encounter Details Care Team Description Date Type Department James Howe Jr., MD [address] [facility] [id number] [place] [address] Appointment; Pre-Op Exam 01/14/2020 [facility]phone [facility] [address] [place] [address] Allergies No Known Allergiesdocumented as of this encounter (statuses as of 01/14/2020) Medications End Date Status Medication Sig Dispensed [...] as of this encounter (statuses as of 01/14/2020) Active Problems No known active problemsdocumented as of this encounter (statuses as of 01/14/2020) Immunizations Name Administration Dates Next Due Influenza Virus Vaccine 04/14/2009, 05/01/2007, 05/2004 Quad IM Multi-dose 6+ [place] Pneumococcal 04/14/2009, 04/17/2004 Polysaccharide, PPSV23 (PNEUMOVAX) TDAP 09/07/2009 Td 09/05/2005 documented as of this encounter Social History [...] Date Type Specialty Malachi Brown MD [address] [facility] [id number] [place] [address] [phone] 01/28/2020 Office Visit Dermatology Health Maintenance Due Date Last Done Comments [...] 09/07/2009, 09/05/2005 (2 - Td) INFLUENZA VACCINE (#1) 2020 04/14/2009, , 04/17/2004 Depression Screening 05/04/2020 05/04/2019 documented as of this encounter Results Not on filedocumented in this encounter Insurance Type Payer Benefit Subscriber ID Effective Phone Address Plan / Dates Group Medicaid [employer] [place] xxxxxxxxx 7-P PLAN - MANAGED MEDICAID STAR PLUS resent documented as of this encounter
--- OUTSIDE RECORDS SUMMARY | 2020-02-05 21:41 | XMS REPORT | Continuity of Care Document ---
Author Author [facility] t Organization [facility] Address [address] [place] [address] Phone Unavailable Care Team Providers Care Protective Service Specialist Name Role Phone TERA ORTEZ, MD BAUTISTA PCP Shyam ORTEZ, F James Attphys LILY HALEY Attphys Unavailable Kevin ORTEZ, G Malachi Attphys Indio ORTEZ, May Antonella Attphys Grace BADILLO Attphys Unavailable LILY HALEY Admphys Unavailable Payers Payer Name Policy Type Policy Number Effective Date Expiration Date [facility] [id number] 2019 00:00 :00 [facility] Cdc Review Covid19 [id number] [facility] [place] [place] TMHP [id number] [facility] Problems Condition Name Condition Details Condition Category Status Onset Date Resolution Date Last Treatment Date Treating Clinician Comments Source Acute exacerbation of chronic obstructive pulmonary disease COPD exacerbation Problem Active [facility] Fever Fever Problem Active [facility] Hypoxia Hypoxia Problem Active [facility] Leukocytosis Leukocytosis Problem Active [facility] Respiratory failure with hypercapnia Problem Active [facility] Chronic back pain Problem Active [facility] Allergies, Adverse Reactions, Alerts Allergy Name Allergy Type Status Severity Reaction(s) Onset Date Inacti ve Date Treating Clinician Comments Source Morphine Propensity to adverse reactions Active Severe SEIZ URE 2019-08-10 00:00:00 [facility] Cephalexin Allergy to substance Active 2019-08-10 00:00:00 [facility] sucralfate DA Active U 2017-05-02 00:00:00 [facility] Social History Social Habit Start Date Stop Date Quantity Comments Source Sex Ass[birth year] At 1955 00:00:00 1955 00:00:00 Female [facility] Medications Ordered Medication Name Filled Medication Name Start Date Stop Da te Current Medication? Ordering Clinician Indication Dosage Frequency Signature (SIG) Comments Components Source Albuterol Sulfate (Albuterol Sulfate Hfa) 8.5 Gm HFA.A ER.AD Albuterol Sulfate (Albuterol Sulfate Hfa) 8.5 Gm HFA.AER.AD Yes 1 Every 4 Hours as needed for Shortness Of Breath [facility] Amlodipine Besylate Amlodipine Besylate Yes 10 Daily [facility] Duloxetine Hcl (Cymbalta) 30 Mg CAPSULE. Duloxetine Hcl (Cymbalta) 30 Mg CAPSULE. Yes 60 Daily [facility] Fenofibrate Nanocrystallized (Fenofibrate) 145 Mg TABL ET Fenofibrate Nanocrystallized (Fenofibrate) 145 Mg TABLET Yes 1 Daily [facility] Lamotrigine (Lamictal) 100 Mg TAB Lamotrigine (Lamictal) 100 Mg TAB Yes 200 Daily [facility] Mirabegron (Myrbetriq) 50 Mg TAB.ER.24H Mirabegron (Myrbetri q) 50 Mg TAB.ER.24H Yes 50 Daily [facility] Omeprazole Omeprazole Yes 40 Daily [facility] Promethazine Hcl (Phenergan Supp*) 25 Mg SUPP Prometha zine Hcl (Phenergan Supp*) 25 Mg SUPP Yes 1 Every 6 Hours as needed for Nausea [facility] Quetiapine Fumarate Quetiapine Fumarate Yes 200 Bedtime [facility] Sumatriptan Succinate (Imitrex) 25 Mg TABLET Sumatript an Succinate (Imitrex) 25 Mg TABLET Yes 1 Daily as needed for Headache [facility] Venlafaxine Hcl (Venlafaxine Hcl Er) 75 Mg CAP.ER.24H Venlafaxine Hcl (Venlafaxine Hcl Er) 75 Mg CAP.ER.24H Yes 75 Twice A Day [facility] Budesonide/Formoterol Fumarate (Symbicor t 80-4.5 Mcg Inhaler) 10.2 Gm HFA.AER.AD Budesonide/Formoterol Fumarate (Symbicor t 80-4.5 Mcg Inhaler) 10.2 Gm HFA.AER.AD 2019-08-10 00:00:00 No 1 [facility] Ipratropium [place] (Atrovent Hfa) 12.9 Gm HFA.AER.AD Ipratropium [place] (Atrovent Hfa) 12.9 Gm HFA.AER.AD 2019-08-10 00:00:00 No [facility] Trazodone Hcl Trazodone Hcl 2019-08-10 00:00:00 No 100 Bedtime [facility] Zafirlukast (Accolate) 10 Mg TABLET Zafirlukast (Accolate) 10 Mg TABLET 2019-08-10 00:00:00 No 10 Twice A Day [facility] Vital Signs Vital Name Observation Time Observation Value Comments Source Weight 2019-12-28 22:15:00 188 [lb_av] [facility] BMI (Body Mass Index) 2019-12-28 22:15:00 32.3 kg/m2 [facility] Body Temperature 2019-11-19 07:55:00 98.8 [degF] [facility] Weight 2019-11-15 11:04:00 190 [lb_av] [facility] BMI (Body Mass Index) 2019-11-15 11:04:00 34.8 kg/m2 [facility] Procedures Procedure Date / Time Performed Performing Clinician Edwin lopez Computed tomography of chest with contrast 2019-11-18 00:00:00 [facility] Magnetic resonance imaging of lumbar spine without the n with contrast 2019-11-12 00:00:00 [facility] Magnetic resonance imaging of thoracic spine without t hen with contrast 2019-11-12 00:00:00 [facility] RESPIRATORY VENTILATION, 24-96 CONSECUTIVE HOURS 2019-11-12 00:0 0:00 [facility] INSERTION OF ENDOTRACHEAL AIRWAY INTO TRACHEA, VIA OPENING 2 00:00:00 [facility] INSERTION OF INFUSION DEV INTO SUP VENA CAVA, PERC APPROACH 2019-11-12 00:00:00 [facility] ULTRASONOGRAPHY OF SUPERIOR VENA CAVA, GUIDANCE 2019-11-12 00:00 :00 [facility] Plan of Care Planned Activity Planned Date Details Comments Source Instructions Back Pain [facility] Encounters Start Date/Time End Date/Time Encounter Type Admission Type Attendi [facility] Facility Care Department Encounter ID Source 2020-01-14 00:00:00 2020-01-14 00:00:00 Telephone James Howe [facility] [id number] 2019-12-28 21:05:00 2019-12-28 22:29:00 [address] Room [facility] [id number] [facility] dical [place] 2019-11-12 14:04:00 2019-11-19 13:00:00 Discharged Inpatient [address] [facility] [id number] [facility] 2019-11-11 00:00:00 2019-11-11 00:00:00 Telephone James Howe [facility] [id number] 2019-11-10 00:00:00 2019-11-10 00:00:00 Telephone James Howe [facility] [id number] 2019-11-02 16:49:35 2019-11-02 16:49:35 [facility] [id number] 2019-10-06 00:00:00 2019-10-06 00:00:00 Telephone James Howe [facility] [id number] 2019-09-30 00:00:00 2019-09-30 00:00:00 Telephone Malachi Willingham [facility] [id number] 2019-09-29 00:00:00 2019-09-29 00:00:00 Telephone Antonella Borjas [facility] [id number] 2019-09-23 00:00:00 2019-09-23 00:00:00 Telephone [facility] [place] [facility] [id number] 2019-08-12 14:40:00 2019-08-14 10:58:00 Discharged Inpatient [address] [facility] [id number] [facility] Results Test Description Test Time Test Comments Results Result Comments Source Serum or plasma carcinoembryonic antigen measurement ( mass/volume) 2019-11-19 05:20:00 Test Item Carcinoembryonic Antigen (test code = 2039-6) 3.7 0.0-4.7 Nonsmokers <3.9 Smokers <5.6[employer] Electrochemiluminescence Immunoassay(ECLIA)Values obtained with different assay methods or kitscannot be used interchangeably. Results cannot beinterpreted as absolute evidence of the presence orabsence of malignant disease.Performed at: - [address] [id number] Director: Baldomero Combs MD, Phone: [phone] [facility] [id number] 15:30:00 [place] [address] Patient Name: GEOVANNA MCGARRY MR #: [id number] : 1955 Age/Sex: 64/F Req #: [id number] Adm Physician: LILY HALEY MD Ordered by: ERUM RAMOS MD Report #: [id number] Location: MED/SURG2 Room/Bed: [facility] Procedure: [id number] CT/CT CH EST W Exam Date: 11/18/19 Exam Time: 1140 REPORT STATUS: Signed EXAM: CT Chest WITH intravenous contrast 11/18/2019 11:40 AM INDICATION: Lung cancer COMPARISON: Chest radiograph 11/15/2019 TECHNIQUE: Chest was scanned utilizing a multide Akermin helical scanner from the lung apex through the level of the adrenal gla nds after administration of IV contrast. Coronal and sagittal reformations wer e obtained. Routine protocol was performed. IV CONTRAST: 100mL Isovue 370 RADIATION DOSE: Total DLP: 528 mGy*cm. Dose modulation, iterative reconstru ction, and/or weight based adjustment of the mA/kV was utilized to reduce the radiation dose to as low as reasonably achievable. COMPLICATIONS: None F INDINGS: LINES/ TUBES: Right IJ nontunneled central venous catheter termina jorge in the superior vena cava. LUNGS AND AIRWAYS: The central airways ar e patent. No focal consolidation or pulmonary edema. No suspicious pulmonary nodule. PLEURA: The pleural spaces are clear. HEART AND MEDIASTINUM: T he thyroid gland appears unremarkable. No supraclavicular, axillary, mediastin al, or hilar lymphadenopathy. The heart is not enlarged. No pericardial effusi on. Mild scattered athetotic calcifications of the aorta, coronary arteries, a nd proximal great vessels. UPPER ABDOMEN: Hepatomegaly and mildly nodular liver surface contour. Status post cholecystectomy. No acute findings. B ONES: Age-indeterminate T8 compression fracture. No suspicious lytic or blasti c lesions. SOFT TISSUES: Bilateral saline breast implants. IMPRESSION: Age indeterminate T8 compression fracture. No focal pneumonia or pulmon tracey edema. No suspicious pulmonary nodule. Hepatomegaly and mildly nodular liver surface contour compatible with early hepatic cirrhosis. Signed by: George Doherty MD on 11/18/2019 3:35 PM Dictated By: GEORGE DOHERTY MD Electron ically Signed By: GEORGE DOHERTY MD on 11/18/19 153 Transcribed By: EILEEN on 153 COPY TO: ERUM RAMOS MD Urine color [id number] 14:50:00* Test Item Value Reference Range Interpretation Comments Urine Color (test code = 5778-6) STRAW YELLOW [facility] [id number] 14:50:00* Test Item Value Reference Range Interpretation Comments Urine Clarity (test code = 90120-8) SL CLOUDY [facility] by Test strip 2019-11-16 14:50:00* Test Item Value Reference Range Interpretation Comments Urine Specific [place] (test code = 5811-5) 1.025 1.010-1.02 5 [facility] pH measurement by automated test [id number] 14:50:00* Test Item Value Reference Range Interpretation Comments Urine pH (test code = 40884-2) 7 5-7 [facility] leukocyte esterase detection by [id number] 14:50:00* Test Item Value Reference Range Interpretation Comments Urine Leukocyte Esterase (test code = 5799-2) NEGATIVE NEGATIVE [facility] nitrite [id number] 14:50:00* Test Item Value Reference Range Interpretation Comments Urine Nitrite (test code = 32137-1) NEGATIVE NEGATIVE [facility] protein measurement by test strip (mass/volume)2019-11-16 14:50:00* Test Item Value Reference Range Interpretation Comments Urine Protein (test code = 5804-0) NEGATIVE NEGATIVE [facility] glucose [id number] 14:50:00* Test Item Value Reference Range Interpretation Comments Urine Glucose (UA) (test code = 2349-9) NEGATIVE NEGATIVE [facility] ketones detection by automated test [id number] 14:50:00* Test Item Value Reference Range Interpretation Comments Urine Ketones (test code = 21442-2) NEGATIVE NEGATIVE [facility] opiates screening [id number] 14:50:00* Test Item Value Reference Range Interpretation Comments Urine Opiates Screen (test code = 03940-0) POSITIVE NEGATIVE ALL TESTS PERFORMED MANUALLY ON [employer] TOX/SEE TEST This test provides only a sc reen. Positive results should be repeated by a confirmatory test.[facility]le[facility] screen, [id number] 14:50:00* Test Item Value Reference Range Interpretation Comments Urine Barbiturates Screen (test code = 259627908) NEGATIVE NEGA TIVE [facility] phencyclidine detection by screening [id number] 14:50:00* Test Item Value Reference Range Interpretation Comments Urine Phencyclidine Screen (test code = 70408-4) NEGATIVE NEGAT ADOLPH [facility] amphetamines detection by screen method > 1000 [id number] 14:50:00* Test Item Value Reference Range Interpretation Comments Urine Amphetamines Screen (test code = 26438-9) NEGATIVE NEGATI VE [facility]leFluoroscopic procedure less than one hour [id number] 14:50:00* Test Item Value Reference Range Interpretation Comments Urine Methamphetamines Screen (test code = Urine Metha mphetamines Screen) NEGATIVE NEGATIVE [facility] benzodiazepines detection by screening [id number] 14:50:00* Test Item Value Reference Range Interpretation Comments Urine Benzodiazepines Screen (test code = 79504-6) NEGATIVE NEG ATIVE [facility] cocaine measurement (mass/volume) 2019-11-16 14:50:00* Test Item Value Reference Range Interpretation Comments Urine Cocaine Screen (test code = 3398-5) NEGATIVE NEGATIVE [facility] cannabinoids detection by screening [id number] 14:50:00* Test Item Value Reference Range Interpretation Comments Urine Cannabinoids Screen (test code = 53781-5) NEGATIVE NEGATI VE THESE RESULTS ARE FOR MEDICAL TREATMENT ONLYTHIS REPORT CONTAINS UNCONFIR MED SCREENING RESULTS*POSITIVE RESULTS WILL BE CONFIRMED BY REFERENCE LAB UPON R EQUEST CUT-OFFDRUG CLASS CONCENTRATION ng/mLAmphetamines 1000Methamphetamines 1000Cocaine 300Opiate 300Phencyc lidine 25Cannabinoid 50Barbiturates 300Benzodiazepine 300Methadone 300[facility]le[facility] methadone [id number] 14:50:00* Test Item Value Reference Range Interpretation Comments Urine Methadone Screen (test code = 05923-0) NEGATIVE NEGATIVE THESE RESULTS ARE FOR MEDICAL TREATMENT ONLYTHIS REPORT CONTAINS UNCONFIR MED SCREENING RESULTS*POSITIVE RESULTS WILL BE CONFIRMED BY REFERENCE LAB UPON R EQUEST CUT-OFFDRUG CLASS CONCENTRATION ng/mLAmphetamines 1000Methamphetamines 1000Cocaine Metabolite 300Opiate 300Phencyc lidine 25Cannabinoid 50Barbiturates 300Benzodiazepine 300Methadone 300[facility]le[facility] urobilinogen measurement by test strip (mass/volume)2019-11-16 14:50:00* Test Item Value Reference Range Interpretation Comments Urine Urobilinogen (test code = 75502-6) 0.2 0.2-1 [facility] total bilirubin measurement (mass/volume)2019-11-16 14:50:00* Test Item Value Reference Range Interpretation Comments Urine Bilirubin (test code = 1978-6) NEGATIVE NEGATIVE [facility]le[facility] erythrocytes [id number] 14:50:00* Test Item Value Reference Range Interpretation Comments Urine Blood (test code = 87158-0) MODERATE NEGATIVE [facility]leAutomated urine sediment leukocyte count by microscopy (number/high power field)2019-11-16 14:50:00* Test Item Value Reference Range Interpretation Comments Urine WBC (test code = 5821-4) NONE 0-5 [facility]leErythrocytes detection in urine sediment by light [id number] 14:50:00* Test Item Value Reference Range Interpretation Comments Urine RBC (test code = 46417-8) 21-50 0-5 [facility]le[facility]acteria detection in urine sediment by light [id number] 14:50:00* Test Item Value Reference Range Interpretation Comments Urine Bacteria (test code = 04680-6) FEW NONE [facility]leEpithelial cells detection in urine sediment by light eyrcarrwoc3230-99-40 14:50:00* Test Item Value Reference Range Interpretation Comments Urine Epithelial Cells (test code = 76102-2) NONE NONE [facility]le[facility] color sohatblfogzvw7494-91-21 14:50:00* Test Item Value Reference Range Interpretation Comments Urine Color (test code = 5778-6) STRAW YELLOW [facility]leU[facility] [id number] 14:50:00* Test Item Value Reference Range Interpretation Comments Urine Clarity (test code = 92724-2) SL CLOUDY CLEAR [facility] gravity of Urine by Test strip 2019-11-16 14:50:00* Test Item Value Reference Range Interpretation Comments Urine Specific [place] (test code = 5811-5) 1.025 1.010-1.02 5 [facility] pH measurement by automated test [id number] 14:50:00* Test Item Value Reference Range Interpretation Comments Urine pH (test code = 11860-4) 7 5-7 [facility]leU[facility] leukocyte esterase detection by dllorhmh7363-36-43 14:50:00* Test Item Value Reference Range Interpretation Comments Urine Leukocyte Esterase (test code = 5799-2) NEGATIVE NEGATIVE [facility]le[facility] nitrite [id number] 14:50:00* Test Item Value Reference Range Interpretation Comments Urine Nitrite (test code = 08398-0) NEGATIVE NEGATIVE [facility]le[facility] protein measurement by test strip (mass/volume)2019-11-16 14:50:00* Test Item Value Reference Range Interpretation Comments Urine Protein (test code = 5804-0) NEGATIVE NEGATIVE [facility]le[facility] glucose [id number] 14:50:00* Test Item Value Reference Range Interpretation Comments Urine Glucose (UA) (test code = 2349-9) NEGATIVE NEGATIVE [facility]le[facility] ketones detection by automated test [id number] 14:50:00* Test Item Value Reference Range Interpretation Comments Urine Ketones (test code = 52089-3) NEGATIVE NEGATIVE [facility]leUrine opiates screening [id number] 14:50:00* Test Item Value Reference Range Interpretation Comments Urine Opiates Screen (test code = 87078-1) POSITIVE NEGATIVE ALL TESTS PERFORMED MANUALLY ON [employer] TOX/SEE TEST This test provides only a sc reen. Positive results should be repeated by a confirmatory test.[facility]le[facility]bit[facility] screen, [id number] 14:50:00* Test Item Value Reference Range Interpretation Comments Urine Barbiturates Screen (test code = 771584513) NEGATIVE NEGA TIVE [facility]le[facility] phencyclidine detection by screening [id number] 14:50:00* Test Item Value Reference Range Interpretation Comments Urine Phencyclidine Screen (test code = 88580-0) NEGATIVE NEGAT ADOLPH [facility]leUrine amphetamines detection by screen method > 1000 ng/[id number] 14:50:00* Test Item Value Reference Range Interpretation Comments Urine Amphetamines Screen (test code = 20182-9) NEGATIVE NEGATI VE [facility] AzleFluoroscopic procedure less than one hour [id number] 14:50:00* Test Item Value Reference Range Interpretation Comments Urine Methamphetamines Screen (test code = Urine Metha mphetamines Screen) NEGATIVE NEGATIVE [facility]leU[facility] benzodiazepines detection by screening [id number] 14:50:00* Test Item Value Reference Range Interpretation Comments Urine Benzodiazepines Screen (test code = 16728-3) NEGATIVE NEG ATIVE [facility]le[facility] cocaine measurement (mass/volume) 2019-11-16 14:50:00* Test Item Value Reference Range Interpretation Comments Urine Cocaine Screen (test code = 3398-5) NEGATIVE NEGATIVE [facility]leU[facility] cannabinoids detection by screening [id number] 14:50:00* Test Item Value Reference Range Interpretation Comments Urine Cannabinoids Screen (test code = 19819-0) NEGATIVE NEGATI VE THESE RESULTS ARE FOR MEDICAL TREATMENT ONLYTHIS REPORT CONTAINS UNCONFIR MED SCREENING RESULTS*POSITIVE RESULTS WILL BE CONFIRMED BY REFERENCE LAB UPON R EQUEST CUT-OFFDRUG CLASS CONCENTRATION ng/mLAmphetamines 1000Methamphetamines 1000Cocaine 300Opiate 300Phencyc lidine 25Cannabinoid 50Barbiturates 300Benzodiazepine 300Methadone 300[facility] methadone [id number] 14:50:00* Test Item Value Reference Range Interpretation Comments Urine Methadone Screen (test code = 66460-4) NEGATIVE NEGATIVE THESE RESULTS ARE FOR MEDICAL TREATMENT ONLYTHIS REPORT CONTAINS UNCONFIR MED SCREENING RESULTS*POSITIVE RESULTS WILL BE CONFIRMED BY REFERENCE LAB UPON R EQUEST CUT-OFFDRUG CLASS CONCENTRATION ng/mLAmphetamines 1000Methamphetamines 1000Cocaine Metabolite 300Opiate 300Phencyc lidine 25Cannabinoid 50Barbiturates 300Benzodiazepine 300Methadone 300[facility] ChildrenU[facility] urobilinogen measurement by test strip (mass/volume)2019-11-16 14:50:00* Test Item Value Reference Range Interpretation Comments Urine Urobilinogen (test code = 49944-2) 0.2 0.2-1 [facility] total bilirubin measurement (mass/volume)2019-11-16 14:50:00* Test Item Value Reference Range Interpretation Comments Urine Bilirubin (test code = 1978-6) NEGATIVE NEGATIVE [facility]le[facility] erythrocytes [id number] 14:50:00* Test Item Value Reference Range Interpretation Comments Urine Blood (test code = 85597-4) MODERATE NEGATIVE [facility]leAutomated urine sediment leukocyte count by microscopy (number/high power field)2019-11-16 14:50:00* Test Item Value Reference Range Interpretation Comments Urine WBC (test code = 5821-4) NONE 0-5 [facility]leErythrocytes detection in urine sediment by light [id number] 14:50:00* Test Item Value Reference Range Interpretation Comments Urine RBC (test code = 85342-6) 21-50 0-5 [facility]leBacteria detection in urine sediment by light [id number] 14:50:00* Test Item Value Reference Range Interpretation Comments Urine Bacteria (test code = 75875-7) FEW NONE [facility]leEpithelial cells detection in urine sediment by light waraxwlwjv2893-73-17 14:50:00* Test Item Value Reference Range Interpretation Comments Urine Epithelial Cells (test code = 13199-6) NONE NONE [facility]leBlood leukocytes automated count (number/volume)2019-11-16 05:30:00* Test Item Value Reference Range Interpretation Comments White Blood Count (test code = 6690-2) 11.12 4.8-10.8 [facility]leBlood erythrocytes automated count (number/volume)2019-11-16 05:30:00* Test Item Value Reference Range Interpretation Comments Red Blood Count (test code = 789-8) 4.04 3.6-5.1 [facility]le[facility] hemoglobin measurement (moles/volume)2019-11-16 05:30:00* Test Item Value Reference Range Interpretation Comments Hemoglobin (test code = 17155-4) 11.7 12.0-16.0 [facility]leAutomated blood hematocrit (volume fraction)2019-11-16 05:30:00* Test Item Value Reference Range Interpretation Comments Hematocrit (test code = 4544-3) 37.4 34.2-44.1 [facility]leAutomated erythrocyte mean corpuscular ugwaxo8370-17-08 05:30:00* Test Item Value Reference Range Interpretation Comments Mean Corpuscular Volume (test code = 787-2) 92.6 81-99 [facility]leAutomated erythrocyte mean corpuscular hemoglobin (mass per erythrocyte)2019-11-16 05:30:00* Test Item Value Reference Range Interpretation Comments Mean Corpuscular Hemoglobin (test code = 785-6) 29.0 28-32 [facility]leAutomated erythrocyte mean corpuscular hemoglobin concentration measurement (mass/volume)2019-11-16 05:30:00* Test Item Value Reference Range Interpretation Comments Mean Corpuscular Hemoglobin Concent (test code = 786-4) 31.3 31-35 [facility] AzleRDW AwzFo-Zxw4171-24-11 05:30:00* Test Item Value Reference Range Interpretation Comments Red Cell Distribution Width (test code = 76739-9) 13.2 11.7 -14.4 [facility]leAutomated blood platelet count (count/volume)2019-11-16 05:30:00* Test Item Value Reference Range Interpretation Comments Platelet Count (test code = 777-3) 232 140-360 [facility]leAutat[facility] health harrisburged blood segmented neutrophil count as percentage of total xxsggzyceq1446-42-43 05:30:00* Test Item Value Reference Range Interpretation Comments Neutrophils (%) (Auto) (test code = 90298-2) 79.2 38.7-80.0 [facility]leAutomated blood lymphocyte count as percentage ot total scowsokgdq4196-55-56 05:30:00* Test Item Value Reference Range Interpretation Comments Lymphocytes (%) (Auto) (test code = 736-9) 13.3 18.0-39.1 [facility]leAutomated blood monocyte count as percentage of total rlyuqjeprz7569-74-38 05:30:00* Test Item Value Reference Range Interpretation Comments Monocytes (%) (Auto) (test code = 5905-5) 6.7 4.4-11.3 [facility]leAutom[facility] blood eosinophil count as percentage of total rxehcyykyp9918-99-43 05:30:00* Test Item Value Reference Range Interpretation Comments Eosinophils (%) (Auto) (test code = 713-8) 0.0 0.0-6.0 [facility]leAutomated blood basophil count as percentage of total hezhjfzdqv8360-98-14 05:30:00* Test Item Value Reference Range Interpretation Comments Basophils (%) (Auto) (test code = 706-2) 0.1 0.0-1.0 [facility] AzleFluoroscopic procedure less than one hour mvnduxxb5025-24-09 05:30:00* Test Item Value Reference Range Interpretation Comments IM GRANULOCYTES % (test code = IM GRANULOCYTES %) 0.7 0.0- 1.0 [facility]leAutomated blood neutrophil count 2019-11-16 05:30:00* Test Item Value Reference Range Interpretation Comments Neutrophils # (Auto) (test code = 751-8) 8.8 2.1-6.9 [facility]leBlood lymphocytes count (number/volume) 2019-11-16 05:30:00* Test Item Value Reference Range Interpretation Comments Lymphocytes # (Auto) (test code = 99095-6) 1.5 1.0-3.2 [facility]Bl[facility] monocytes automated count (number/volume)2019-11-16 05:30:00* Test Item Value Reference Range Interpretation Comments Monocytes # (Auto) (test code = 742-7) 0.8 0.2-0.8 [facility]leAutomated blood eosinophil count 2019-11-16 05:30:00* Test Item Value Reference Range Interpretation Comments Eosinophils # (Auto) (test code = 711-2) 0.0 0.0-0.4 [facility]leAutomated blood basophil count (count/volume)2019-11-16 05:30:00* Test Item Value Reference Range Interpretation Comments Basophils # (Auto) (test code = 704-7) 0.0 0.0-0.1 [facility] AzleFluoroscopic procedure less than one hour mnljbfcn3441-17-97 05:30:00* Test Item Value Reference Range Interpretation Comments Absolute Immature Granulocyte (auto (jorge t code = Absolute Immature Granulocyte (auto) 0.08 0-0.1 [facility] sodium measurement (moles/volume)2019-11-16 05:30:00* Test Item Value Reference Range Interpretation Comments Sodium Level (test code = 2951-2) 141 136-145 [facility] potassium measurement (moles/volume)2019-11-16 05:30:00* Test Item Value Reference Range Interpretation Comments Potassium Level (test code = 2823-3) 4.4 3.5-5.1 [facility] chloride measurement (moles/volume)2019-11-16 05:30:00* Test Item Value Reference Range Interpretation Comments Chloride Level (test code = 2075-0) 96 98-107 [facility]ere[facility] or plasma carbon dioxide, total measurement (moles/volume)2019-11-16 05:30:00* Test Item Value Reference Range Interpretation Comments Carbon Dioxide Level (test code = 2028-9) 38 22-29 [facility]ere[facility] or plasma anion ntb9828-82-05 05:30:00* Test Item Value Reference Range Interpretation Comments Anion Gap (test code = 09280-1) 11.4 8-16 [facility] urea nitrogen measurement (mass/volume)2019-11-16 05:30:00* Test Item Value Reference Range Interpretation Comments Blood Urea Nitrogen (test code = 3094-0) 18 7-26 [facility]ere[facility] creatinine measurement (mass/volume)2019-11-16 05:30:00* Test Item Value Reference Range Interpretation Comments Creatinine (test code = 2160-0) 0.64 0.57-1.11 [facility]ererum or plasma urea nitrogen/creatinine mass tumln8899-29-13 05:30:00* Test Item Value Reference Range Interpretation Comments BUN/Creatinine Ratio (test code = 3097-3) 28 6-25 [facility]leEstimated glomerular filtration rate (GFR) dyfmbjpplpqek6705-98-55 05:30:00* Test Item Value Reference Range Interpretation Comments Estimat Glomerular Filtration Rate (test code = 490743143) > 60 >60 Ranges were taken from the National Kidney Disease Education Program and the [facility] literature.Reference ranges:60 or greater: Idryhx89-91 ( for 3 consecutive months): Chronic kidney disease 15 or less: Kidney failureTexas Health Harris Methodist Hospital AzleGlucose nsjdttoffhr3523-40-71 05:30:00* Test Item Value Reference Range Interpretation Comments Glucose Level (test code = WXQ6003) 99 74-118 [facility]ere[facility] or plasma calcium measurement (mass/volume)2019-11-16 05:30:00* Test Item Value Reference Range Interpretation Comments Calcium Level (test code = 63437-6) 9.3 8.4-10.2 [facility]ere[facility] or plasma total bilirubin measurement (mass/volume)2019-11-16 05:30:00* Test Item Value Reference Range Interpretation Comments Total Bilirubin (test code = 1975-2) 0.3 0.2-1.2 [facility] AzleFluoroscopic procedure less than one hour gdhvayng9483-87-24 05:30:00* Test Item Value Reference Range Interpretation Comments Aspartate Amino Transf (AST/SGOT) (test code = Aspartate Amino Transf (AST/SGOT)) 34 5-34 [facility]ererum or plasma alanine aminotransferase measurement (enzymatic activity/volume)2019-11-16 05:30:00* Test Item Value Reference Range Interpretation Comments Alanine Aminotransferase (ALT/SGPT) (test code = 1742-6) 27 0-55 [facility]ere[facility] or plasma protein measurement (mass/volume)2019-11-16 05:30:00* Test Item Value Reference Range Interpretation Comments Total Protein (test code = 2885-2) 6.3 6.5-8.1 [facility]ererum or plasma albumin measurement (mass/volume)2019-11-16 05:30:00* Test Item Value Reference Range Interpretation Comments Albumin (test code = 1751-7) 3.3 3.5-5.0 [facility] AzlePlasma globulin measurement (mass/volume) 2019-11-16 05:30:00* Test Item Value Reference Range Interpretation Comments Globulin (test code = 19415-1) 3.0 2.3-3.5 [facility]ererum or plasma albumin/globulin mass tnhwi1045-25-80 05:30:00* Test Item Value Reference Range Interpretation Comments Albumin/Globulin Ratio (test code = 1759-0) 1.1 0.8-2.0 [facility]ererum or plasma alkaline phosphatase measurement (enzymatic activity/volume)2019-11-16 05:30:00* Test Item Value Reference Range Interpretation Comments Alkaline Phosphatase (test code = 6768-6) 96 40-150 [facility] AzleBNP Tua-fHid5061-44-11 05:30:00* Test Item Value Reference Range Interpretation Comments B-Type Natriuretic Peptide (test code = 04630-4) 88.6 0-100 [facility]leBlood leukocytes automated count (number/volume)2019-11-16 05:30:00* Test Item Value Reference Range Interpretation Comments White Blood Count (test code = 6690-2) 11.12 4.8-10.8 [facility]leBlood erythrocytes automated count (number/volume)2019-11-16 05:30:00* Test Item Value Reference Range Interpretation Comments Red Blood Count (test code = 789-8) 4.04 3.6-5.1 [facility]leBlood hemoglobin measurement (moles/volume)2019-11-16 05:30:00* Test Item Value Reference Range Interpretation Comments Hemoglobin (test code = 78925-2) 11.7 12.0-16.0 [facility]leAutomated blood hematocrit (volume fraction)2019-11-16 05:30:00* Test Item Value Reference Range Interpretation Comments Hematocrit (test code = 4544-3) 37.4 34.2-44.1 [facility]leAutomated erythrocyte mean corpuscular cfvuyo2988-65-64 05:30:00* Test Item Value Reference Range Interpretation Comments Mean Corpuscular Volume (test code = 787-2) 92.6 81-99 [facility]leAutomated erythrocyte mean corpuscular hemoglobin (mass per erythrocyte)2019-11-16 05:30:00* Test Item Value Reference Range Interpretation Comments Mean Corpuscular Hemoglobin (test code = 785-6) 29.0 28-32 [facility]leAutomated erythrocyte mean corpuscular hemoglobin concentration measurement (mass/volume)2019-11-16 05:30:00* Test Item Value Reference Range Interpretation Comments Mean Corpuscular Hemoglobin Concent (test code = 786-4) 31.3 31-35 [facility] AzleRDW CzwVe-Azj7743-55-11 05:30:00* Test Item Value Reference Range Interpretation Comments Red Cell Distribution Width (test code = 03857-4) 13.2 11.7 -14.4 [facility]leAutomated blood platelet count (count/volume)2019-11-16 05:30:00* Test Item Value Reference Range Interpretation Comments Platelet Count (test code = 777-3) 232 140-360 [facility] AzleAutomated blood segmented neutrophil count as percentage of total pokmpwoylm4509-75-15 05:30:00* Test Item Value Reference Range Interpretation Comments Neutrophils (%) (Auto) (test code = 97725-1) 79.2 38.7-80.0 [facility]leAutomated blood lymphocyte count as percentage ot total jdoeojxaik3954-33-99 05:30:00* Test Item Value Reference Range Interpretation Comments Lymphocytes (%) (Auto) (test code = 736-9) 13.3 18.0-39.1 [facility]leAutomated blood monocyte count as percentage of total dpzcsdxdcr0565-00-64 05:30:00* Test Item Value Reference Range Interpretation Comments Monocytes (%) (Auto) (test code = 5905-5) 6.7 4.4-11.3 [facility]leAutomated blood eosinophil count as percentage of total tchzjtvvhw7514-61-24 05:30:00* Test Item Value Reference Range Interpretation Comments Eosinophils (%) (Auto) (test code = 713-8) 0.0 0.0-6.0 [facility]leAutomated blood basophil count as percentage of total gftdvowxrm7745-69-93 05:30:00* Test Item Value Reference Range Interpretation Comments Basophils (%) (Auto) (test code = 706-2) 0.1 0.0-1.0 [facility] AzleFluoroscopic procedure less than one hour fngyywsw4426-21-55 05:30:00* Test Item Value Reference Range Interpretation Comments IM GRANULOCYTES % (test code = IM GRANULOCYTES %) 0.7 0.0- 1.0 [facility]leAutomated blood neutrophil count 2019-11-16 05:30:00* Test Item Value Reference Range Interpretation Comments Neutrophils # (Auto) (test code = 751-8) 8.8 2.1-6.9 [facility]leBlood lymphocytes count (number/volume) 2019-11-16 05:30:00* Test Item Value Reference Range Interpretation Comments Lymphocytes # (Auto) (test code = 93410-3) 1.5 1.0-3.2 [facility]leBlood monocytes automated count (number/volume)2019-11-16 05:30:00* Test Item Value Reference Range Interpretation Comments Monocytes # (Auto) (test code = 742-7) 0.8 0.2-0.8 [facility]leAutomated blood eosinophil count 2019-11-16 05:30:00* Test Item Value Reference Range Interpretation Comments Eosinophils # (Auto) (test code = 711-2) 0.0 0.0-0.4 [facility]leAutomated blood basophil count (count/volume)2019-11-16 05:30:00* Test Item Value Reference Range Interpretation Comments Basophils # (Auto) (test code = 704-7) 0.0 0.0-0.1 [facility] AzleFluoroscopic procedure less than one hour dkacbuqu4020-33-64 05:30:00* Test Item Value Reference Range Interpretation Comments Absolute Immature Granulocyte (auto (jorge t code = Absolute Immature Granulocyte (auto) 0.08 0-0.1 [facility] sodium measurement (moles/volume)2019-11-16 05:30:00* Test Item Value Reference Range Interpretation Comments Sodium Level (test code = 2951-2) 141 136-145 [facility]ere[facility] or plasma potassium measurement (moles/volume)2019-11-16 05:30:00* Test Item Value Reference Range Interpretation Comments Potassium Level (test code = 2823-3) 4.4 3.5-5.1 [facility]ere[facility] or plasma chloride measurement (moles/volume)2019-11-16 05:30:00* Test Item Value Reference Range Interpretation Comments Chloride Level (test code = 2075-0) 96 98-107 [facility]ererum or plasma carbon dioxide, total measurement (moles/volume)2019-11-16 05:30:00* Test Item Value Reference Range Interpretation Comments Carbon Dioxide Level (test code = 2028-9) 38 22-29 [facility]ererum or plasma anion gio2673-66-91 05:30:00* Test Item Value Reference Range Interpretation Comments Anion Gap (test code = 37209-4) 11.4 8-16 [facility]ere[facility] plasma urea nitrogen measurement (mass/volume)2019-11-16 05:30:00* Test Item Value Reference Range Interpretation Comments Blood Urea Nitrogen (test code = 3094-0) 18 7-26 [facility]ere[facility] or plasma creatinine measurement (mass/volume)2019-11-16 05:30:00* Test Item Value Reference Range Interpretation Comments Creatinine (test code = 2160-0) 0.64 0.57-1.11 [facility]ererum or plasma urea nitrogen/creatinine mass uheqd6618-11-09 05:30:00* Test Item Value Reference Range Interpretation Comments BUN/Creatinine Ratio (test code = 3097-3) 28 6-25 [facility]leEstimated glomerular filtration rate (GFR) dkehvqxwwgfur9562-62-71 05:30:00* Test Item Value Reference Range Interpretation Comments Estimat Glomerular Filtration Rate (test code = 557777394) > 60 >60 Ranges were taken from the National Kidney Disease Education Program and the [facility] literature.Reference ranges:60 or greater: Ybvozj14-10 ( for 3 consecutive months): Chronic kidney disease 15 or less: Kidney failureTexas Health Harris [facility] Hospital AzleGlucose zlhfvepjorq5020-43-56 05:30:00* Test Item Value Reference Range Interpretation Comments Glucose Level (test code = TPM9314) 99 74-118 [facility]ere[facility] or plasma calcium measurement (mass/volume)2019-11-16 05:30:00* Test Item Value Reference Range Interpretation Comments Calcium Level (test code = 11747-9) 9.3 8.4-10.2 [facility]ererum or plasma total bilirubin measurement (mass/volume)2019-11-16 05:30:00* Test Item Value Reference Range Interpretation Comments Total Bilirubin (test code = 1975-2) 0.3 0.2-1.2 [facility] AzleFluoroscopic procedure less than one hour swxmqckh2778-87-72 05:30:00* Test Item Value Reference Range Interpretation Comments Aspartate Amino Transf (AST/SGOT) (test code = Aspartate Amino Transf (AST/SGOT)) 34 5-34 [facility]ererum or plasma alanine aminotransferase measurement (enzymatic activity/volume)2019-11-16 05:30:00* Test Item Value Reference Range Interpretation Comments Alanine Aminotransferase (ALT/SGPT) (test code = 1742-6) 27 0-55 [facility]ere[facility] or plasma protein measurement (mass/volume)2019-11-16 05:30:00* Test Item Value Reference Range Interpretation Comments Total Protein (test code = 2885-2) 6.3 6.5-8.1 [facility]ere[facility] or plasma albumin measurement (mass/volume)2019-11-16 05:30:00* Test Item Value Reference Range Interpretation Comments Albumin (test code = 1751-7) 3.3 3.5-5.0 [facility]lePlasma globulin measurement (mass/volume) 2019-11-16 05:30:00* Test Item Value Reference Range Interpretation Comments Globulin (test code = 98058-8) 3.0 2.3-3.5 [facility]ere[facility] or plasma albumin/globulin mass iuugv6944-45-85 05:30:00* Test Item Value Reference Range Interpretation Comments Albumin/Globulin Ratio (test code = 1759-0) 1.1 0.8-2.0 [facility]ererum or plasma alkaline phosphatase measurement (enzymatic activity/volume)2019-11-16 05:30:00* Test Item Value Reference Range Interpretation Comments Alkaline Phosphatase (test code = 6768-6) 96 40-150 [facility] AzleBNP Ekd-wMiy9502-73-11 05:30:00* Test Item Value Reference Range Interpretation Comments B-Type Natriuretic Peptide (test code = 63525-6) 88.6 0-100 [facility]leCHEST SINGLE (PORTABLE)2019-11-15 08:24:00 [facility] [address] [address] Patient Name: GEOVANNA MCGARRY MR #: [id number] : 1955 Age/Sex: 64/F Req #: [id number] Adm Physician: LILY HALEY MD Ordered by: HARPREET JOEL MD Report #: [id number] Location: ICU Room/Bed: ICU [facility] Procedure: [id number] DX/CHEST SIN GLE (PORTABLE) Exam Date: 11/15/19 Exam Time: 0540 REPORT STATUS: Signed Examination : Single AP view of the chest. COMPARISON: November 14, 2019 INDICATION: Rig ht-sided pneumonia DISCUSSION: Lines/tubes: Right IJ catheter st able. Enteric and endotracheal tubes removed. Lungs: No consolidation. Pleura: No pleural effusion or pneumothorax. Heart and mediastinum: The heart and the mediastinum are unremarkable. Bones and soft tissues: No ac janett bony abnormalities. IMPRESSION: 1. No acute cardiopulmonar y abnormalities. Signed by: Dr. Sadia Coronado M.D. on 11/15/2019 8:26 AM Dictated By: SADIA CORONADO MD 5 Transcribed By: EILEEN on 11/15/19825 COPY TO: HARPREET JOEL MD Arterial blood pH pdunqfqocys4379-73-75 09:52:00* Test Item Value Reference Range Interpretation Comments Arterial Blood pH (test code = 2744-1) 7.27 7.35-7.45 [facility] AzlepCO2 VczS4853-79-78 09:52:00* Test Item Value Reference Range Interpretation Comments Arterial Blood Partial Pressure CO2 (test code = 2019-8) 72 35-45 [facility] AzleArterial blood bicarbonate measurement (moles/volume)2019-11-14 09:52:00* Test Item Value Reference Range Interpretation Comments Arterial Blood HCO3 (test code = 1960-4) 34 22-26 [facility] AzleArterial blood base excess by calculation 2019-11-14 09:52:00* Test Item Value Reference Range Interpretation Comments Arterial Blood Base Excess (test code = 1925-7) 7.0 -2-3 [facility] AzleFluoroscopic procedure less than one hour cdvfkfwp9346-28-71 09:52:00* Test Item Value Reference Range Interpretation Comments FiO2 (test code = FiO2) 45 PT ON CPAP, PS- 10, +5, 45% [id number] [facility]leCHEST SINGLE ([facility])2019-11-14 07:21:00 [address] [address] Patient Name: GEOVANNA MCGARRY MR #: [id number] : 1955 Age/Sex: 64/F Req #: [id number] Adm Physician: LILY HALEY MD Ordered by: PRERNA SCALES MD Report #: [id number] Location: ICU Room/Bed: ICU [facility] Procedure: [id number] DX/CHEST SINGL E (PORTABLE) Exam Date: 11/14/19 Exam Time: 0550 REPORT STATUS: Signed EXAMINATION: CHEST SINGLE (PORTABLE) INDICATION: INTUBATED [id number] COMPARISON: 11/13/2019 FINDINGS: AP view TUBES and L LUCINA: Stable endotracheal tube, right IJ central line and partially seen ente gonzález tube. LUNGS: Lungs are well inflated. Increased right upper lung fiel d hazy opacification. Mild central vascular congestion. PLEURA: No pleur al effusion or pneumothorax. HEART AND MEDIASTINUM: The cardiomediastinal silhouette is unremarkable. BONES AND SOFT TISSUES: No acute osseous l esion. Soft tissues are unremarkable. UPPER ABDOMEN: No free air under t he diaphragm. IMPRESSION: Increased right upper lobe hazy opacificat ion, which could represent atelectasis or pneumonia in the appropriate clinica l context. Signed by: Dr. Geovanny Mills MD on 11/14/2019 7:24 AM D ictated By: GEOVANNY MILLS MD 3 COPY TO: PRERNA SCALES MD Serum or plasma creatine kinase measurement (enzymatic activity/volume)2019-11-13 16:20:00* Test Item Value Reference Range Interpretation Comments Creatine Kinase (test code = 2157-6) 190 29-168 [facility]ere[facility] or plasma creatine kinase MB measurement (mass/volume)2019-11-13 16:20:00* Test Item Value Reference Range Interpretation Comments Creatine Kinase MB (test code = 58069-9) 3.90 0-5.0 [facility]leTroponin I measurement by highly sensitive enzyme lrqijqvmmyi1362-29-53 16:20:00* Test Item Value Reference Range Interpretation Comments Troponin I (test code = 82119-0) 0.013 0-0.300 [facility]ererum or plasma 25-hydroxyvitamin D measurement (mass/volume)2019-11-13 16:20:00* Test Item Value Reference Range Interpretation Comments 25-Hydroxy Vitamin D Total (test code = 30254-1) 12 . Reference Range:All Ages: Target levels 30 - 100[facility]ererum or plasma 25-hydroxycalciferol measurement (mass/volume)2019-11-13 16:20:00* Test Item Value Reference Range Interpretation Comments 25-Hydroxy Vitamin D3 (test code = 34708-7) 12 . This test was developed and its performance characteristicsdetermined by [facility] . It has not been cleared or approvedby the Food and Drug Administration.Perform ed at: [facility] [place] [address] [id number] Director: Foreign Barber MD, Phone: [phone] Rock Medical Centererum or plasma calcidiol measurement (mass/volume)2019-11-13 16:20:00* Test Item Value Reference Range Interpretation Comments 25-Hydroxy Vitamin D2 (test code = 1989-3) <1.0 . This test was developed and its performance characteristicsdetermined by [facility] . It has not been cleared or approvedby the Food and Drug Administration.[facility]ererum or plasma creatine kinase measurement (enzymatic activity/volume)2019-11-13 16:20:00* Test Item Value Reference Range Interpretation Comments Creatine Kinase (test code = 2157-6) 190 29-168 [facility]ererum or plasma creatine kinase MB measurement (mass/volume)2019-11-13 16:20:00* Test Item Value Reference Range Interpretation Comments Creatine Kinase MB (test code = 74029-9) 3.90 0-5.0 [facility]leTroponin I measurement by highly sensitive enzyme chwcdmrbtgk5760-24-63 16:20:00* Test Item Value Reference Range Interpretation Comments Troponin I (test code = 53757-4) 0.013 0-0.300 [facility] [facility] or plasma 25-hydroxyvitamin D measurement (mass/volume)2019-11-13 16:20:00* Test Item Value Reference Range Interpretation Comments 25-Hydroxy Vitamin D Total (test code = 53136-8) 12 . Reference Range:All Ages: Target levels 30 - 100[facility] 25-hydroxycalciferol measurement (mass/volume)2019-11-13 16:20:00* Test Item Value Reference Range Interpretation Comments 25-Hydroxy Vitamin D3 (test code = 72287-9) 12 . This test was developed and its performance characteristicsdetermined by [employer] . It has not been cleared or approvedby the Food and Drug Administration.Perform ed at: [facility] [address] [place], [place] [id number] Director: Foreign Barber MD, Phone: [phone] Rock Medical Centererum or plasma calcidiol measurement (mass/volume)2019-11-13 16:20:00* Test Item Value Reference Range Interpretation Comments 25-Hydroxy Vitamin D2 (test code = 1989-3) <1.0 . This test was developed and its performance characteristicsdetermined by [employer] . It has not been cleared or approvedby the Food and Drug Administration.[facility]2019-11-13 15:51:00 [place] [address] Patient Name: GEOVANNA MCGARYR MR #: [id number] : 1955 Age/Sex: 64/F Req #: [id number] Adm Physician: LILY HALEY MD Ordered by: PRERNA SCALES MD Report #: [id number] Location: ICU Room/Bed: ICU [facility] Procedure: [id number] DX/CHEST SINGL E (PORTABLE) Exam Date: 11/13/19 Exam Time: 1457 REPORT STATUS: Signed X-ray chest A P portable History: Intubation Comparison: 11/13/2019 at 5:53 AM Fi ndings: An endotracheal tube is seen with the tip at the thoracic inlet. This is an acceptable position. The nasogastric tube is seen coursing down the expe cted path but the tip is excluded. A right IJ central venous line remains unch anged the tip overlying SVC. On this exam there is apparent cardiomegaly. This is because of technical reasons. Right costophrenic angle is excluded. There is a generalized increase in the opacity of the right hemithorax suggesting a layering right pleural effusion. There is no left pleural effusion. There is n o pneumothorax. The previously seen right upper lung zone opacity is not visua lized on this exam. Impression: The previously seen opacity in the right up per lung is no longer visualized. There is asymmetric increased opacity of the right hemithorax raising the possibility of a layering right pleural effusion . No change in other tubes and lines. Signed by: Renny Anand MD on 11/12 3:55 PM Dictated By: RENNY ANAND MD 1553 Transcribed By: EILEEN on 11/13/19 1556 COPY TO: PRERNA SCALES MD CHEST SINGLE (PORTABLE)2019-11-13 09:43:00 [place] [address] Patient Name: GEOVANNA MCGARRY MR #: [id number] : 1955 Age/Sex: 64/F Req #: [id number] Adm Physician: LILY HALEY MD Ordered by: MARCELINO PATEL MD Rep ort #: [id number] Location: ICU Room/B ed: ICU 192-1 Procedure: [id number] DX/CHEST SINGL E (PORTABLE) Exam Date: 11/13/19 Exam Time: 514 REPORT STATUS: Signed X-ray chest A P portable Comparison: 11/13/2019 at 04 13 Findings: Please note that th e image quality is suboptimal for interpretation. Endotracheal tube tip is bar oneil visualized on this image. However suspected to be at the thoracic inlet. N o change in the right IJ central venous line. Nasogastric tube seen coursing d own the expected path and is just described in a separate report. Heart size b orderline normal. No pleural effusion. No definite pneumothorax. Interval appe arance of opacity in the right lung upper and mid zones. Fractures of posterio r left seventh eighth and ninth ribs are noted. There was not as clearly visib le on the previous exam. Impression: Suboptimal imaging quality. Interval opacity in the right lung likely representing right upper lobe suggestive of infection or aspiration. Please repeat the chest x-ray. Signed by: Renny monson MD on 11/13/2019 9:49 AM Dictated By: RENNY ANAND MD Electronic ally Signed By: RENNY ANAND MD on 11/13/19948 Transcribed By: EILEEN on 11/13/19948 COPY TO: MARCELINO PATEL MD ABDOMEN-1VIEW ([facility]) 2019-11-13 09:40:00 [place] [address] Patient Name: GEOVANNA MCGARRY MR #: [id number] : 1955 Age/Sex: 64/F Req #: [id number] Adm Physician: LILY HALEY MD Ordered by: MARCELINO PATEL MD Report #: [id number] Location: ICU Room/Bed: ICU 192 Procedure: [id number] DX/ABDOMEN-1VI EW (KUB) Exam Date: 11/13/19 Exam Time: 0515 REPORT STATUS: Signed X-ray chest/abdom en AP portable History: NG tube placement Findings: A nasogastric tube is seen coursing down the expected past with the tip overlying the left upper quadrant of the abdomen. No other significant findings in the visualized lowe r chest and upper abdomen. Impression: Nasogastric tube tip in the left upp er quadrant. Signed by: Renny Anand MD on 11/13/2019 9:41 AM Dicta vincenzo By: RENNY ANAND MD 0 COPY TO: MARCELINO PATEL MD CHEST SINGLE (PORTABLE)2019-11-13 01:19:00 [place] [address] Patient Name: GEOVANNA MCGARRY MR #: [id number] : 1955 Age/Sex: 64/F Req #: [id number] [facility] Physician: LILY HALEY MD Ordered by: MARCELINO PATEL MD Report #: [id number] Location: ICU Room/Bed: [place] [address] Procedure: [id number] DX/CHEST SINGL E (PORTABLE) Exam Date: 11/12/19 Exam Time: 2461 REPORT STATUS: Signed EXAMINATION: CHEST SINGLE (PORTABLE) INDICATION: ET tube, verify position COMPARISON: Chest x-ray 11/12/2019 FINDINGS: TUBES and LINES: The ET tube is now 4.3 cm above the addie, ideal. Right IJ central venous c atheter, tip in the low SVC. LUNGS: Normal lung volumes. Lungs are clear. No consolidations. PLEURA: No pleural effusion or pneumothorax. HEA RT AND MEDIASTINUM: The cardiomediastinal silhouette is unremarkable. BONES AND SOFT TISSUES: No acute osseous lesion. Soft tissues are unremarkab le. UPPER ABDOMEN: No free air under the diaphragm. IMPRESSION: The ET tube is now 4.3 cm above the addie, ideal. Signed by: Lyndon martinez DO on 11/13/2019 1:20 AM Dictated By: LYNDON MAYES DO Electron ically Signed By: LYNDON MAYES DO on 11/13/19119 Transcribed By: EILEEN on 11/13/19119 COPY TO: MARCELINO PATEL MD Arterial blood pH lihfjppniqr4045-06-67 01:10:00* Test Item Value Reference Range Interpretation Comments Arterial Blood pH (test code = 2744-1) 7.13 7.35-7.45 Results called/hand delivered to rt at 0233 on 11/13/19 by Armand Salas. RB OK. [facility]lepCO2 MaaC3504-80-08 01:10:00* Test Item Value Reference Range Interpretation Comments Arterial Blood Partial Pressure CO2 (test code = 2019-02) 123 35-45 [facility]lep[facility] NjgH5652-72-43 01:10:00* Test Item Value Reference Range Interpretation Comments Arterial Blood Partial Pressure O2 (test code = 2019-02) 96 80-105 [facility]leAr[facility] blood bicarbonate measurement (moles/volume)2019-11-13 01:10:00* Test Item Value Reference Range Interpretation Comments Arterial Blood HCO3 (test code = 1960-4) 41 22-26 [facility]le[facility] blood base excess by calculation 2019-11-13 01:10:00* Test Item Value Reference Range Interpretation Comments Arterial Blood Base Excess (test code = 1925-7) 12.0 -2-3 [facility]le[facility] blood oxygen saturation hhygglafqgn6824-94-60 01:10:00* Test Item Value Reference Range Interpretation Comments Arterial Blood Oxygen Saturation (test code = 2708-6) 93.0 95-98 [facility] AzleFluoroscopic procedure less than one hour octgfbdg1921-65-70 01:10:00* Test Item Value Reference Range Interpretation Comments FiO2 (test code = FiO2) 60 [facility]lepCO2 [id number] 01:10:00* Test Item Value Reference Range Interpretation Comments Arterial Blood Partial Pressure O2 (test code = 2019-8) 96 80-105 [facility]leAr[facility] blood oxygen saturation cdvbypamwkz2682-00-67 01:10:00* Test Item Value Reference Range Interpretation Comments Arterial Blood Oxygen Saturation (test code = 2708-6) 93.0 95-98 [facility]2019-11-12 23:10:00 [place] [address] Patient Name: GEOVANNA MCGARRY MR #: [id number] : 1955 Age/Sex: 64/F Req #: [id number] Adm Physician: LILY HALEY MD Ordered by: MARCELINO PATEL MD Report #: [id number] Location: [facility] Room/Bed: [place] [address] Procedure: [id number] DX/CHEST SINGL E (PORTABLE) Exam Date: 11/12/19 Exam Time: 2209 REPORT STATUS: Signed EXAMINATION: CHEST SINGLE (PORTABLE) INDICATION: ET tube, verify position chest x- ray 11/12/2019 COMPARISON: None FINDINGS: TUBES and LINES : ET tube tip approximately 1.5 cm above addie. The right IJ central venous catheter tip is in the low SVC. LUNGS: Normal lung volumes. Lungs are moriah ar. No consolidations. PLEURA: No pleural effusion or pneumothorax. HEART AND MEDIASTINUM: The cardiomediastinal silhouette is unremarkable. BONES AND SOFT TISSUES: No acute osseous lesion. Soft tissues are unremar kable. UPPER ABDOMEN: No free air under the diaphragm. IMPRESSION: ET tube tip approximately 1.5 cm above addie, consider 2 cm retraction, with repeat radiograph. The right IJ central venous catheter tip is in the low SVC. Signed by: Lyndon Mayes DO on 11/12/2019 11:12 PM Dictated By : LYNDON MAYES DO 11 Transcribed By: EILEEN on 11/12/192311 COPY TO: MARCELINO PATEL MD MRI SPINE LUMBAR VSK1100-03-12 21:06:00 [place] [address] Patient Name: GEOVANNA MCGARRY MR #: [id number] : 1955 Age/Sex: 64/F Req #: [id number] Adm Physician: LILY HALEY MD Ordered by: ARMAND REID RECOVERY ASSISTANT Report #: [id number] Location: [facility] Room/Bed: [place] [address] Procedure: [id number] MRI/MRI SP INE LUMBAR WOW Exam Date: Exam Time: REPORT STATUS: Signed History: Back pain Co mparison studies: None Technique: Pre-contrast sagittal, coronal and axi al T2 , sagittal T1 and IR, axial spin density oblique. Postcontrast axial and sagittal T1 Intravenous contrast: 17 cc of MultiHance. Findings: Number of lumbar vertebral bodies:5 Alignment:Normal lordosis.No scoliosis . Soft tissues:No T2 hyperintense inflammatory changes. Paraspinal muscles: Fatty infiltrated from L3 through S1. Lower thoracic cord:Normal in signal and morphology. The tip of the conus is at T12-L1. Cauda equina:No masses. No arachnoiditis. 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 V ertebrae: Normal in height and signal intensity. No compression fractures, i nfection or neoplasm. Degenerative changes: * Mildly degenerated discs f rom L3 through S1. * Moderately degenerated facets at L4-5 associated with en hancing pericapsular, there are changes. * No significant spinal canal sten osis in spite of this bulges from L3 through S1. * Moderate bilateral nikita inal stenosis at L5-S1 due to disc bulges, endplate osteophytes and facet arth rosis. IMPRESSION: 1. No acute abnormalities. 2. Significantly, no compression fractures, neoplasm or infection. 3. Degenerative changes as described. Signed by: Dr. Dre Wright M.D. on 11/12/2019 9:10 P M Dictated By: DRE WRIGHT MD, MD 09 Transcribed By: EILEEN on 11/12/19 211 0 COPY TO: ARMAND REID RECOVERY ASSISTANT MRI SPINE THORACIC [id number] 20:46:00 [place] [address] Patient Name: GEOVANNA MCGARRY MR #: [id number] : 1955 Age/Sex: 64/F Req #: [id number] Adm Physician: LILY HALEY MD Ordered by: ARMAND REID RECOVERY ASSISTANT Report #: [id number] Location: [facility] Room/Bed: [place] [address] Procedure: [id number] MRI/MRI SP INE THORACIC WOW Exam Date: Exam Time: REPORT STATUS: Signed History:Back pain C omparison studies:None Technique: Sagittal T2, T1 and STIR, coronal T2. Post contrast axial and sagittal T1 Intravenous contrast: 17 cc of MultiHanc e Findings: Curvature: Normal kyphosis. No scoliosis. Paraspinal soft tissues: No signal abnormalities Spinal cord: Normal in morphology and si gnal intensity. Vertebrae: Decreased T1 signal, increased T2 and STIR sig nal and enhancement along the superior endplate of T5 and throughout the verte bral body of T8 are consistent with acute compression fractures. Loss of verte bral body height is less than 30% at T5 but closer to 50% in the anterior aspe ct of the vertebral body at T8 (image 7 on series 5, 6 and 7). Abnormal signal focally extends into the pedicles at T8. A focus of enhancement in the i nferior endplate of T7 may be posttraumatic or degenerative (series 7, image 7 ). Otherwise, the rest of the thoracic vertebral bodies are normal in height a nd signal intensity. Disk spaces: Normal in height and signal intensity. Disk herniations: None. Foramina: Patent. Spinal canal: Patent. IMPRESS ION: 1. Acute compression fractures at T5 and T8 result in less than 30 an d approximately 50% loss of vertebral body height respectively. No retropulsed fragment displaced into the spinal canal. The subtle fractures could be due t o osteopenia unless there is history of a primary malignancy. 2. Otherwi se, no abnormalities. 3. Specifically, no infection. Signed by : Dr. Dre Wright M.D. on 11/12/2019 9:05 PM Dictated By: DRE CERNA MD, MD 04 COPY TO: MICHAEL REID NP Fluoroscopic procedure less than one hour gczejafj7718-15-51 18:55:00* Test Item Value Reference Range Interpretation Comments Coronavirus (PCR) (test code = Coronavirus (PCR)) NOT DETECTED NOTD ETECTED SARS-COV-2 (COVID19), HIGHRISK, RT-PCRNegative results do not preclude SARS-CoV- 2 infection and should not be used as the sole basis for patient management deci sions. Negative results must be combined with clinical observations, patient his tory, and epidemiological information. Optimum specimen types and timing for pea k viral levels during infections caused by SARS-CoV-2 have not been determined. Collection of multiple specimens ot types of specimens may be necessary to detec t virus. Improper specimen collection and handling, sequence variability under p rimers/probes, or organism present below the limit of detection may lead to fals e negative results. Positive and negative predictive values of testing are highl y dependent on prevalance. False negative test results are more likely when prev alence is high.The expected result is negative (not detected).The SARS-CoV-2 jorge t is intended for the qualitative detection of nucleic acid from SARS-CoV-2 in n asopharyngeal and oropharyngeal swab samples from patients who meet COVID-19 cli nical and or epidemiological criteria. For lower respiratory tract specimens, th e assay is submitted for authoriztion by FDA under an Emergency Use Authorizatio n (EUA). Testing methodology is real time RT-PCR. If received as separate collec tion devices, nasopharygeal and oropharyngeal specimens are combined for analysi s. Additional specimens may be split to a separate accession for analysi and rep orting as this test includes a single unit of service.Test results must be corre lated with clinical presentation and evaluated in the context of other laborator y and epidemiologic data. Test performance can be affected because the epidemiol ogy and clinical spectrum of infection caused by SARS-CoV-2 is not fully known. For example, the optimum types of specimens to collect and when during the cours e of infection these specimens are most likely to contain detectable viral RNA m ay not be known.This test has not been Food and Drug Administration (FDA) cleare d or approved and has been authorized by FDA under an Emergency Use Authorizatio n (EUA). The test is only authorized for the duration of the declaration that ci rcumstances exist justifying the authorization of emergency use of in vitro diag nostic tests for detection and/or diagnosis of SARS-CoV-2 under section 564(b) o f the Act, 21 U.S.C. section 360bbb-3(b)(1), unless the authorization is termina vincenzo or revoked sooner. [facility] are certified under the C linical Laboratory Improvement Amendments of 1988 (CLIA), 42 U.S.C. section 263a , to perform high complexity tests.Specimen sent to [facility] and testing performed by [facility] [address] [place] [address] [phone] Director: Ashutosh Henao M.D.CLIA # [id number] [facility] ChildrenFluoroscopic procedure less than one hour cawigixy8509-99-99 18:55:00* Test Item Value Reference Range Interpretation Comments Coronavirus (PCR) (test code = Coronavirus (PCR)) NOT DETECTED NOTD ETECTED SARS-COV-2 (COVID19), HIGHRISK, RT-PCRNegative results do not preclude SARS-CoV- 2 infection and should not be used as the sole basis for patient management deci sions. Negative results must be combined with clinical observations, patient his tory, and epidemiological information. Optimum specimen types and timing for pea k viral levels during infections caused by SARS-CoV-2 have not been determined. Collection of multiple specimens ot types of specimens may be necessary to detec t virus. Improper specimen collection and handling, sequence variability under p rimers/probes, or organism present below the limit of detection may lead to fals e negative results. Positive and negative predictive values of testing are highl y dependent on prevalance. False negative test results are more likely when prev alence is high.The expected result is negative (not detected).The SARS-CoV-2 jorge t is intended for the qualitative detection of nucleic acid from SARS-CoV-2 in n asopharyngeal and oropharyngeal swab samples from patients who meet COVID-19 cli nical and or epidemiological criteria. For lower respiratory tract specimens, th e assay is submitted for authoriztion by FDA under an Emergency Use Authorizatio n (EUA). Testing methodology is real time RT-PCR. If received as separate collec tion devices, nasopharygeal and oropharyngeal specimens are combined for analysi s. Additional specimens may be split to a separate accession for analysi and rep orting as this test includes a single unit of service.Test results must be corre lated with clinical presentation and evaluated in the context of other laborator y and epidemiologic data. Test performance can be affected because the epidemiol ogy and clinical spectrum of infection caused by SARS-CoV-2 is not fully known. For example, the optimum types of specimens to collect and when during the cours e of infection these specimens are most likely to contain detectable viral RNA m ay not be known.This test has not been Food and Drug Administration (FDA) cleare d or approved and has been authorized by FDA under an Emergency Use Authorizatio n (EUA). The test is only authorized for the duration of the declaration that ci rcumstances exist justifying the authorization of emergency use of in vitro diag nostic tests for detection and/or diagnosis of SARS-CoV-2 under section 564(b) o f the Act, 21 U.S.C. section 360bbb-3(b)(1), unless the authorization is termina vincenzo or revoked sooner. [facility] are certified under the C linical Laboratory Improvement Amendments of 1988 (CLIA), 42 U.S.C. section 263a , to perform high complexity tests.Specimen sent to [facility] and testing performed by [facility] [id number] [place] [address] [phone] Director: Ashutosh Henao M.D.CLIA # [id number] [facility] ChildrenFluoroscopic procedure less than one hour ejkhyymy4702-92-92 15:59:00* Test Item Value Reference Range Interpretation Comments Lactic Acid Level (test code = Lactic Acid Level) 0.5 0.5- 2.0 [facility] AzleFluoroscopic procedure less than one hour vhuatnbs8628-91-51 15:59:00* Test Item Value Reference Range Interpretation Comments Lactic Acid Level (test code = Lactic Acid Level) 0.5 0.5- 2.0 [facility]le[facility] ([facility]ABLE)2019-11-12 15:15:00 [place] [address] Patient Name: GEOVANNA MCGARRY MR #: [id number] : 1955 Age/Sex: 64/F Req #: [id number] Adm Physician: Ordered by: ARMAND REID RECOVERY ASSISTANT Report #: [id number] Location: ER Room/Bed: Procedure: [id number] DX/CHEST S HARMONY (PORTABLE) Exam Date: 11/12/19 Exam Time: 1440 REPORT STATUS: Signed EXAMINATI ON: CHEST SINGLE (PORTABLE) INDICATION: Back pain COMPARISON: Non e FINDINGS: LINES/TUBES:EKG leads overlie the chest. LUNGS:T he lungs are well-inflated. No focal consolidation or pulmonary edema. PLEU RA:No pleural effusion or pneumothorax. MEDIASTINUM:The cardiomediastinal s ilhouette appears normal in size and shape. BONES/SOFT TISSUES:No acute oss eous injury. ABDOMEN:No free air under the diaphragm. IMPRESSION: No focal pneumonia or pulmonary edema. Signed by: George Doherty MD on 020 3:15 PM Dictated By: GEORGE DOHERTY MD 14 Transcribed By: EILEEN on 11/12/191514 COPY TO: ARMAND REID RECOVERY ASSISTANT Blood yaoryxl5838-54-02 14:38:00* Test Item Value Reference Range Interpretation Comments Blood Culture (test code = 46441973) NO GROWTH AFTER 5 DAYS, FINAL REPORT [facility]le[facility] likzboz5347-37-06 14:38:00* Test Item Value Reference Range Interpretation Comments Blood Culture (test code = 74229954) NO GROWTH AFTER 5 DAYS, FINAL REPORT [facility] AzleProthrombin time (PT) in platelet poor plasma by coagulation wynwr1419-92-78 14:15:00* Test Item Value Reference Range Interpretation Comments Prothrombin Time (test code = 5902-2) 12.2 11.9-14.5 [facility]leINR in Platelet poor plasma by Coagulation rznrl2715-40-68 14:15:00* Test Item Value Reference Range Interpretation Comments Prothromb Time International Ratio (test code = 6301-6) 0.86 Oral Anticoagulant Therapy INR Values:1. Low Intensity Therapy 1.5 - 2.02 . Moderate Intensity Therapy 2.0 - 3.03. High Intensity Therapy(1) 2.5 - 3. 54. High Intensity Therapy(2) 3.0 - 4.05. Panic Value INR > 5.0 [facility] AzleActivated partial thromboplastin time (aPTT) in platelet poor plasma by coagulation cdczk1022-66-37 14:15:00* Test Item Value Reference Range Interpretation Comments Activated Partial Thromboplast Time (test code = 49761-5) 24.4 23.8-35.5 [facility] AzleProthrombin time (PT) in platelet poor plasma by coagulation [id number] 14:15:00* Test Item Value Reference Range Interpretation Comments Prothrombin Time (test code = 5902-2) 12.2 11.9-14.5 [facility]leINR in Platelet poor plasma by Coagulation tnbmh7728-71-65 14:15:00* Test Item Value Reference Range Interpretation Comments Prothromb Time International Ratio (test code = 6301-6) 0.86 Oral Anticoagulant Therapy INR Values:1. Low Intensity Therapy 1.5 - 2.02 . Moderate Intensity Therapy 2.0 - 3.03. High Intensity Therapy(1) 2.5 - 3. 54. High Intensity Therapy(2) 3.0 - 4.05. Panic Value INR > 5.0 [facility] AzleActivated partial thromboplastin time (aPTT) in platelet poor plasma by coagulation abxxa9333-21-08 14:15:00* Test Item Value Reference Range Interpretation Comments Activated Partial Thromboplast Time (test code = 50333-5) 24.4 23.8-35.5 [facility]leBlood Rvebgmm9979-24-95 18:38:00* Test Item Value Reference Range Interpretation Comments Blood Culture (test code = 77055063) NO GROWTH AFTER 72 HOURS [facility] Hoqns0027-32-14 06:22:00* Test Item Value Reference Range Interpretation Comments Sodium Level (test code = 2951-2) 140 136-145 [facility] AzlePotassium Ybllf0745-99-29 06:22:00* Test Item Value Reference Range Interpretation Comments Potassium Level (test code = 2823-3) 4.5 3.5-5.1 [facility] AzleChloride Trmbz4752-89-69 06:22:00* Test Item Value Reference Range Interpretation Comments Chloride Level (test code = 2075-0) 105 98-107 [facility] AzleCarbon Dioxide Bxdac1487-17-94 06:22:00* Test Item Value Reference Range Interpretation Comments Carbon Dioxide Level (test code = 2028-9) 29 22-29 [facility] [facility] [id number] 06:22:00* Test Item Value Reference Range Interpretation Comments Anion Gap (test code = 10769-1) 10.5 8-16 [facility]leBlood Urea Fscymrby5101-44-47 06:22:00* Test Item Value Reference Range Interpretation Comments Blood Urea Nitrogen (test code = 3094-0) 19 7-26 [facility]leCreatinine2020-02-06 06:22:00* Test Item Value Reference Range Interpretation Comments Creatinine (test code = 2160-0) 0.69 0.57-1.11 [facility]leBUN/Creatinine Qffoy8856-29-69 06:22:00* Test Item Value Reference Range Interpretation Comments BUN/Creatinine Ratio (test code = 3097-3) 28 6-25 H [facility]leEstimat Glomerular Filtration Rate 2019-08-13 06:22:00* Test Item Value Reference Range Interpretation Comments Estimat Glomerular Filtration Rate (test code = 609500093) > 60 >60 Ranges were taken from the National Kidney Disease Education Program and the [facility] literature.Reference ranges:60 or greater: Itqgod95-73 ( for 3 consecutive months): Chronic kidney disease 15 or less: Kidney failureTexas [facility] Harris [facility] AzleGlucose Mmjpg2833-56-81 06:22:00* Test Item Value Reference Range Interpretation Comments Glucose Level (test code = ZJU4818) 136 74-118 H [facility]leCalcium Qgqng1294-52-83 06:22:00* Test Item Value Reference Range Interpretation Comments Calcium Level (test code = 17380-8) 8.2 8.4-10.2 L [facility]leWhite Blood Icdic5386-97-94 06:07:00* Test Item Value Reference Range Interpretation Comments White Blood Count (test code = 6690-2) 12.68 4.8-10.8 H [facility]leRed Blood Mtyeb4829-99-52 06:07:00* Test Item Value Reference Range Interpretation Comments Red Blood Count (test code = 789-8) 3.55 3.6-5.1 L [facility]leHemoglobin2020-02-06 06:07:00* Test Item Value Reference Range Interpretation Comments Hemoglobin (test code = 51081-7) 10.8 12.0-16.0 L [facility]leHematocrit2020-02-06 06:07:00* Test Item Value Reference Range Interpretation Comments Hematocrit (test code = 4544-3) 33.0 34.2-44.1 L [facility]leMean Corpuscular Hsytxl9958-56-24 06:07:00* Test Item Value Reference Range Interpretation Comments Mean Corpuscular Volume (test code = 787-2) 93.0 81-99 [facility]leMean Corpuscular Gnegkwccfu2403-61-22 06:07:00* Test Item Value Reference Range Interpretation Comments Mean Corpuscular Hemoglobin (test code = 785-6) 30.4 28-[address] [facility] Corpuscular Hemoglobin Concent 2019-08-13 06:07:00* Test Item Value Reference Range Interpretation Comments Mean Corpuscular Hemoglobin Concent (test code = 786-4) 32.7 31-35 [facility]leRed Cell Distribution Sgqcg6326-51-34 06:07:00* Test Item Value Reference Range Interpretation Comments Red Cell Distribution Width (test code = 14563-0) 12.7 11.7 -14.4 [facility] AzlePlatelet Hcrnk7592-89-50 06:07:00* Test Item Value Reference Range Interpretation Comments Platelet Count (test code = 777-3) 257 140-360 [facility]leCreatine Kinase AO7764-91-07 14:20:00* Test Item Value Reference Range Interpretation Comments Creatine Kinase MB (test code = 71373-4) 12.60 0-5.0 H [facility]leTroponin [id number] 14:20:00* Test Item Value Reference Range Interpretation Comments Troponin I (test code = REZ3267) < 0.001 0-0.300 [facility]leCreatine Joqqzn8324-27-78 14:11:00* Test Item Value Reference Range Interpretation Comments Creatine Kinase (test code = 2157-6) 222 29-168 [facility]leNeutrophils # (Auto)2019-08-11 09:24:00* Test Item Value Reference Range Interpretation Comments Neutrophils # (Auto) (test code = 751-8) 17.2 2.1-6.9 [facility]leLymphocytes # (Auto)2019-08-11 09:24:00* Test Item Value Reference Range Interpretation Comments Lymphocytes # (Auto) (test code = 43929-6) 0.9 1.0-3.2 L [facility]leMonocytes # (Auto)2019-08-11 09:24:00* Test Item Value Reference Range Interpretation Comments Monocytes # (Auto) (test code = 742-7) 0.2 0.2-0.8 [facility]leEosinophils # (Auto)2019-08-11 09:24:00* Test Item Value Reference Range Interpretation Comments Eosinophils # (Auto) (test code = 711-2) 0.0 0.0-0.4 [facility]leBasophils # (Auto)2019-08-11 09:24:00* Test Item Value Reference Range Interpretation Comments Basophils # (Auto) (test code = 704-7) 0.0 0.0-0.1 [facility]leAbsolute Immature Granulocyte (auto 2019-08-11 09:24:00* Test Item Value Reference Range Interpretation Comments Absolute Immature Granulocyte (auto (jorge t code = Absolute Immature Granulocyte (auto) 0.08 0-0.1 [facility]leNeutrophils (%) (Auto)2019-08-11 08:00:00 * Test Item Value Reference Range Interpretation Comments Neutrophils (%) (Auto) (test code = 63357-0) 93.4 38.7-80.0 H [facility]leLymphocytes (%) (Auto)2019-08-11 08:00:00 * Test Item Value Reference Range Interpretation Comments Lymphocytes (%) (Auto) (test code = 736-9) 4.8 18.0-39.1 L [facility]leMonocytes (%) (Auto)2019-08-11 08:00:00* Test Item Value Reference Range Interpretation Comments Monocytes (%) (Auto) (test code = 5905-5) 1.3 4.4-11.3 L [facility]leEosinophils (%) (Auto)2019-08-11 08:00:00 * Test Item Value Reference Range Interpretation Comments Eosinophils (%) (Auto) (test code = 713-8) 0.0 0.0-6.0 [facility]leBasophils (%) (Auto)2019-08-11 08:00:00* Test Item Value Reference Range Interpretation Comments Basophils (%) (Auto) (test code = 706-2) 0.1 0.0-1.0 [facility]leIM GRANULOCYTES %2019-08-11 08:00:00* Test Item Value Reference Range Interpretation Comments IM GRANULOCYTES % (test code = IM GRANULOCYTES %) 0.4 0.0- 1.0 [facility] AzleUrine [id number] 21:47:00* Test Item Value Reference Range Interpretation Comments Urine WBC (test code = 5821-4) NONE 0-5 [facility]leU[facility] [id number] 21:47:00* Test Item Value Reference Range Interpretation Comments Urine RBC (test code = 41191-6) NONE 0-5 [facility]leUrine Oqeeuhrw3465-33-48 21:47:00* Test Item Value Reference Range Interpretation Comments Urine Bacteria (test code = 58273-5) NONE NONE [facility]leUrine Epithelial Obybp6433-33-72 21:47:00 * Test Item Value Reference Range Interpretation Comments Urine Epithelial Cells (test code = 57524-3) NONE NONE [facility]leUrine Lrkiz1244-31-31 21:25:00* Test Item Value Reference Range Interpretation Comments Urine Color (test code = 5778-6) YELLOW YELLOW [facility]leU[facility] Jilsdig3021-60-78 21:25:00* Test Item Value Reference Range Interpretation Comments Urine Clarity (test code = 31314-8) SL CLOUDY CLEAR [facility]leUrine Specific Qgzneei7172-84-12 21:25:00 * Test Item Value Reference Range Interpretation Comments Urine Specific [place] (test code = 5811-5) 1.020 1.010-1.02 5 [facility]leU[facility] rH4080-92-20 21:25:00* Test Item Value Reference Range Interpretation Comments Urine pH (test code = 48299-1) 6 5-7 [facility]leU[facility] Leukocyte Bclqbuvl9382-94-72 21:25:00* Test Item Value Reference Range Interpretation Comments Urine Leukocyte Esterase (test code = 5799-2) NEGATIVE NEGATIVE [facility]leU[facility] Pnflmvz5455-38-06 21:25:00* Test Item Value Reference Range Interpretation Comments Urine Nitrite (test code = 76327-9) NEGATIVE NEGATIVE [facility]leUrine Repalyf4123-16-04 21:25:00* Test Item Value Reference Range Interpretation Comments Urine Protein (test code = 5804-0) 1+ NEGATIVE H [facility]leUrine Glucose (UA)2019-08-10 21:25:00* Test Item Value Reference Range Interpretation Comments Urine Glucose (UA) (test code = 2349-9) NEGATIVE NEGATIVE [facility]leU[facility] Hptzmmo5984-54-04 21:25:00* Test Item Value Reference Range Interpretation Comments Urine Ketones (test code = 14681-1) NEGATIVE NEGATIVE [facility]leU[facility] Qvmvyvrarjrc9614-17-12 21:25:00* Test Item Value Reference Range Interpretation Comments Urine Urobilinogen (test code = 57893-7) 2 0.2-1 [facility]leU[facility] Rytajbfts1411-18-03 21:25:00* Test Item Value Reference Range Interpretation Comments Urine Bilirubin (test code = 1978-6) NEGATIVE NEGATIVE [facility]leU[facility] Vezrb0773-65-96 21:25:00* Test Item Value Reference Range Interpretation Comments Urine Blood (test code = 42652-3) NEGATIVE NEGATIVE [facility] AzleInfluenza Virus Types A,B Antigen 2019-08-10 20:06:00* Test Item Value Reference Range Interpretation Comments Influenza Virus Types A,B Antigen (test code = 37680-6) NEGATIVE NEGATIVE [facility] AzleB-Type Natriuretic Pfcfptm4846-59-96 19:23:00* Test Item Value Reference Range Interpretation Comments B-Type Natriuretic Peptide (test code = 57634-9) < 10.0 0-100 [facility]leCHEST SINGLE (PORTABLE)2019-08-10 19:13:00 [facility] [address] [place] [address] Patient Name: GEOVANNA MCGARRY MR #: [id number] : 1955 Age/Sex: 63/F Req #: [id number] Adm Physician: Ordered by: HERNAN BADILLO MD Report #: [id number] Location: ER Room/Bed: Procedure: 6085-1413 D X/CHEST SINGLE (PORTABLE) Exam Date: 08/10/19 Exam T taylor: 1858 REPORT STATUS: Signed EXAMINATION: CHEST SINGLE (PORTABLE) INDICATION: Shortness of rigo ath SOB COMPARISON: None FINDINGS: TUBES and LINES: Non e. LUNGS: Perihilar peribronchial opacity could be due to bronchitis. No consolidative pneumonia. PLEURA: No pleural effusion or pneumothorax. HEART AND MEDIASTINUM: The cardiomediastinal silhouette is unremarkable. BONES AND SOFT TISSUES: No acute osseous lesion. Soft tissues are unrema rkable. UPPER ABDOMEN: No free air under the diaphragm. IMPRESSION : Perihilar peribronchial opacity could be due to bronchitis. No consolidativ e pneumonia. Signed by: Dr. Maurilio Nieves M.D. on 08/10/2019 7:13 PM Dictated By: MAURILIO NIEVES MD, MD 12 Transcribed By: EILEEN on 08/10/191912 COPY TO: HERNAN BREWER MD Lactic Acid Bxvyi5250-57-59 19:10:00* Test Item Value Reference Range Interpretation Comments Lactic Acid Level (test code = Lactic Acid Level) 1.1 0.5- 2.0 [facility]leMagnesium Gnuvj7712-37-70 19:09:00* Test Item Value Reference Range Interpretation Comments Magnesium Level (test code = 96591-9) 1.8 1.3-2.1 [facility] AzleTotal Wnfucypke3506-70-65 19:09:00* Test Item Value Reference Range Interpretation Comments Total Bilirubin (test code = 1975-2) 0.6 0.2-1.2 [facility] AzleAspartate Amino Transf (AST/SGOT) 2019-08-10 19:09:00* Test Item Value Reference Range Interpretation Comments Aspartate Amino Transf (AST/SGOT) (test code = Aspartate Amino Transf (AST/SGOT)) 33 5-34 [facility] AzleAlanine Aminotransferase (ALT/SGPT) 2019-08-10 19:09:00* Test Item Value Reference Range Interpretation Comments Alanine Aminotransferase (ALT/SGPT) (test code = 1742-6) 40 0-55 [facility]leTotal Dlmzleq6285-96-48 19:09:00* Test Item Value Reference Range Interpretation Comments Total Protein (test code = 2885-2) 7.5 6.5-8.1 [facility] AzleAlbumin2020-02-03 19:09:00* Test Item Value Reference Range Interpretation Comments Albumin (test code = 1751-7) 3.6 3.5-5.0 [facility] AzleGlobulin2020-02-03 19:09:00* Test Item Value Reference Range Interpretation Comments Globulin (test code = 35565-7) 3.9 2.3-3.5 H [facility] AzleAlbumin/Globulin Pvofr7279-31-62 19:09:00 * Test Item Value Reference Range Interpretation Comments Albumin/Globulin Ratio (test code = 1759-0) 0.9 0.8-2.0 [facility] AzleAlkaline Roqbrtnayvo7628-49-46 19:09:00* Test Item Value Reference Range Interpretation Comments Alkaline Phosphatase (test code = 6768-6) 91 40-150 [facility] AzleProthrombin Aodj0847-37-85 19:05:00* Test Item Value Reference Range Interpretation Comments Prothrombin Time (test code = 5902-2) 13.4 11.9-14.5 [facility] AzleProthromb Time International Ratio 2019-08-10 19:05:00* Test Item Value Reference Range Interpretation Comments Prothromb Time International Ratio (test code = 6301-6) 1.00 Oral Anticoagulant Therapy INR Values:1. Low Intensity Therapy 1.5 - 2.02 . Moderate Intensity Therapy 2.0 - 3.03. High Intensity Therapy(1) 2.5 - 3. 54. High Intensity Therapy(2) 3.0 - 4.05. Panic Value INR > 5.0 [facility] AzleActivated Partial Thromboplast Time 2019-08-10 19:05:00* Test Item Value Reference Range Interpretation Comments Activated Partial Thromboplast Time (test code = 86273-1) 28.6 23.8-35.5 [facility] AzleInfluenza virus A and B antigen identification by luviplpjmjerdikwzb7455-04-25 18:10:00* Test Item Value Reference Range Interpretation Comments Influenza Virus Types A,B Antigen (test code = 13561-4) NEGATIVE NEGATIVE [facility] AzleInfluenza virus A and B antigen identification by tqmanewvputxuguzfr6878-23-94 18:10:00* Test Item Value Reference Range Interpretation Comments Influenza Virus Types A,B Antigen (test code = 92412-3) NEGATIVE NEGATIVE [facility] magnesium measurement (mass/volume)2019-08-10 17:29:00* Test Item Value Reference Range Interpretation Comments Magnesium Level (test code = 45822-6) 1.8 1.3-2.1 [facility]ererum or plasma magnesium measurement (mass/volume)2019-08-10 17:29:00* Test Item Value Reference Range Interpretation Comments Magnesium Level (test code = 60591-7) 1.8 1.3-2.1 [facility]lePOLYP2018-11-15 14:28:00 RUN DATE: 05/22/18 [place] [facility] PAGE 1 RUN TIME: 1428 Specimen Inqui ry RUN USER: INTERFACE PATIENT: GEOVANNA MCGARRY ACCT #: [id number] LOC: INDY U #: [id number] AGE/SX: 62/F ROOM: RE05/20/18REG DR: Bossman Bernal MD : 57 BED: DIS: STATUS: [facility] [place] TLOC: SPEC #: [id number] RECD: 05/20/18 STATUS: GEMMA MURGUIA #: [id number] HANG: 05/20/[address] [facility] [address]: Bossman Bernal MD ENTERED: 05/20/18 SP TYPE: POLYP OTHR DR: Lily Downs MDORDERED: GROSS COPIES TO: Lily Stevens MD [address] [place] [address] Bossman Bernal MD [address] [place] [address] PROCEDURES: GROSS (05/21/18-9277) TISSUES: 1. SIGMOID - POLYP HS BX 2. RE CTUM, NOS - POLYP HS BX x2 CLINICAL HISTORY COLLECTION DATE: 05/20/18 SCREENING, HISTORY OF COLON POLYPS FINAL DIAGNOSIS Sigmoid col on, polyp, biopsy: HYPERPLASTIC POLYP NEGATIVE FOR MALIGNANCY Rectum, polyp X2, biopsy: HYPERPLASTIC POLYPS NEGATIVE FOR MALIGNANCY [place] [id number] CONTINUED ON NEXT PAGE RUN DATE: 05/22/18 [facility] PAGE 2 RUN TIME: 1428 Specimen Inquiry RUN USER: INTERFACE SPEC #: [id number] PATIENT: GEOVANNA MCGARRY #[id number] (Continued) -- MACROSCOPIC The first specimen is received in formalin, labeled with the patient's name, identified as "sigmoid polyp ", and consists of enriquez- red biopsy tissue measuring 0.2 cm, submitted as (1). The second specime n is received in formalin, labeled with the patient's name, identified as "rec dulce polyp", and consists of two enriquez biopsy tissue measuring 0.1 to 0.15 cm eac h, submitted as (2). GROSS PERFORMED AT [facility] [address] [place] [phone] [phone])[phone] MICROSCOPIC MICROSCOPIC PERFORMED AT [facility] All of t he stains, including any controls performed, stain appropriately. [facility] [address] [place] [phone] (p)[phone] PERFORMING SITE Diagnosis performed at: [facility] [address] [place] [address] Signed SIGNATURE ON FILE Jack Riberasally Downs 05/22/18 1428 END OF REPORT
--- NOTE | 2020-02-05 22:15 | Diagnostic Imaging Report ---
EXAMINATION: CHEST SINGLE (PORTABLE) INDICATION: ^sob,cough, chest pain COMPARISON: CT dated 11/18/2019. Radiograph dated 11/15/2019 FINDINGS: TUBES and LINES: None. LUNGS: Normal lung volumes. Unchanged hazy densities at the lung bases likely due to breast prosthesis. PLEURA: No pleural effusion or pneumothorax. HEART AND MEDIASTINUM: The cardiomediastinal silhouette is unremarkable. BONES AND SOFT TISSUES: No acute osseous lesion. Soft tissues are unremarkable. UPPER ABDOMEN: No free air under the diaphragm. IMPRESSION: No definite consolidation. Breast prostheses produce hazy densities at the lung bases, which mildly limits evaluation. A lateral view could be helpful to exclude basilar airspace disease. Signed by: Yazan Nguyen MD on 02/05/2020 10:11 PM
[2020-02-05 22:26] LABS: ABG HCO3 51 mmol/L (22-26); ABG PCO2 103 mmHg (35-45); ABG PH 7.31 (7.35-7.45); ABG PO2 93 mmHg (80-105); ABG TCO2 50
--- NOTE | 2020-02-05 23:36 | NUR ---
ABG RESULTED; PER MD ORDER, RT CALLED TO BS FOR BIPAP PLACEMENT, PT TOLERATING WELL AT THIS TIME
[2020-02-05] MEDS ORDERED: ASPIRIN 81 MG CHEW TAB PO ONE (23:45)
[2020-02-05] MEDS ORDERED: SODIUM CHLORIDE FLUSH 10 ML SYR INJ PRN (23:45)
--- OUTSIDE RECORDS SUMMARY | 2020-02-05 23:52 | XMS REPORT | Continuity of Care Document ---
Author Author [facility] t Organization [facility] Address [address] [place] [address] Phone Unavailable Care Team Providers Care Heat Treat Puller Name Role Phone TERA ORTEZ, MD BAUTISTA PCP Lanie GARCIA Attphys Unavailable Shyam ORTEZ, F James Attphys LILY HALEY Attphys Unavailable Kevin ORTEZ, G Wenceslao Attphys Indio ORTEZ, May Antonella Attphys Grace BADILLO Attphys Unavailable LILY HALEY Admphys Unavailable Payers Payer Name Policy Type Policy Number Effective Date Expiration Date [facility] [id number] 2019 00:00 :00 [facility] Cdc Review Covid19 [id number] [facility] TM [id number] [facility] Problems Condition Name Condition Details Condition Category Status Onset Date Resolution Date Last Treatment Date Treating Clinician Comments Source Acute exacerbation of chronic obstructive pulmonary disease COPD exacerbation Problem Active [facility] Fever Fever [facility] Hypoxia Problem Active [facility] Leukocytosis Leukocytosis Problem Active [facility] Respiratory failure with hypercapnia Problem Active [facility] Chronic back pain Problem Active [facility] Allergies, Adverse Reactions, Alerts Allergy Name Allergy Type Status Severity Reaction(s) Onset Date Inacti ve Date Treating Clinician Comments Source Morphine Propensity to adverse reactions Active Severe SEIZ URE 2019-08-10 00:00:00 [facility] Cephalexin Allergy to substance Active 2019-08-10 00:00:00 [facility] sucralfate DA Active U 2017-05-02 00:00:00 [facility] Social History Social Habit Start Date Stop Date Quantity Comments Source Sex Ass[birth year] At 1955 00:00:00 1955 00:00:00 Female [facility] Medications Ordered Medication Name Filled Medication Name Start Date Stop Da te Current Medication? Ordering Clinician Indication Dosage Frequency Signature (SIG) Comments Components Source Albuterol Sulfate (Albuterol Sulfate Hfa) 8.5 Gm HFA.A ER.AD Albuterol Sulfate (Albuterol Sulfate Hfa) 8.5 Gm HFA.AER.AD Yes 1 Every 4 Hours as needed for Shortness Of Breath [facility] Amlodipine Besylate Amlodipine Besylate Yes 10 Daily [facility] Duloxetine Hcl (Cymbalta) 30 Mg CAPSULE. Duloxetine Hcl (Cymbalta) 30 Mg CAPSULE. Yes 60 Daily [facility] Fenofibrate Nanocrystallized (Fenofibrate) 145 Mg TABL ET Fenofibrate Nanocrystallized (Fenofibrate) 145 Mg TABLET Yes 1 Daily [facility] Lamotrigine (Lamictal) 100 Mg TAB Lamotrigine (Lamictal) 100 Mg TAB Yes 200 Daily [facility] Mirabegron (Myrbetriq) 50 Mg TAB.ER.24H Mirabegron (Myrbetri q) 50 Mg TAB.ER.24H Yes 50 Daily [facility] Omeprazole Omeprazole Yes 40 Daily [facility] Promethazine Hcl (Phenergan Supp*) 25 Mg SUPP Prometha zine Hcl (Phenergan Supp*) 25 Mg SUPP Yes 1 Every 6 Hours as needed for Nausea [facility] Quetiapine Fumarate Quetiapine Fumarate Yes 200 Bedtime [facility] Sumatriptan Succinate (Imitrex) 25 Mg TABLET Sumatript an Succinate (Imitrex) 25 Mg TABLET Yes 1 Daily as needed for Headache [facility] Venlafaxine Hcl (Venlafaxine Hcl Er) 75 Mg CAP.ER.24H Venlafaxine Hcl (Venlafaxine Hcl Er) 75 Mg CAP.ER.24H Yes 75 Twice A Day [facility] Budesonide/Formoterol Fumarate (Symbicor t 80-4.5 Mcg Inhaler) 10.2 Gm HFA.AER.AD Budesonide/Formoterol Fumarate (Symbicor t 80-4.5 Mcg Inhaler) 10.2 Gm HFA.AER.AD 2019-08-10 00:00:00 No 1 [facility] Ipratropium [place] (Atrovent Hfa) 12.9 Gm HFA.AER.AD Ipratropium [place] (Atrovent Hfa) 12.9 Gm HFA.AER.AD 2019-08-10 00:00:00 No [facility] Trazodone Hcl Trazodone Hcl 2019-08-10 00:00:00 No 100 Bedtime [facility] Zafirlukast (Accolate) 10 Mg TABLET Zafirlukast (Accolate) 10 Mg TABLET 2019-08-10 00:00:00 No 10 Twice A Day [facility] Vital Signs Vital Name Observation Time Observation Value Comments Source Weight 2019-12-28 22:15:00 188 [lb_av] [facility] BMI (Body Mass Index) 2019-12-28 22:15:00 32.3 kg/m2 [facility] Body Temperature 2019-11-19 07:55:00 98.8 [degF] [facility] Weight 2019-11-15 11:04:00 190 [lb_av] [facility] BMI (Body Mass Index) 2019-11-15 11:04:00 34.8 kg/m2 [facility] Procedures Procedure Date / Time Performed Performing Clinician Edwin lopez Computed tomography of chest with contrast 2019-11-18 00:00:00 [facility] Magnetic resonance imaging of lumbar spine without the n with contrast 2019-11-12 00:00:00 [facility] Magnetic resonance imaging of thoracic spine without t hen with contrast 2019-11-12 00:00:00 [facility] RESPIRATORY VENTILATION, 24-96 CONSECUTIVE HOURS 2019-11-12 00:0 0:00 [facility] INSERTION OF ENDOTRACHEAL AIRWAY INTO TRACHEA, VIA OPENING 2 00:00:00 [facility] INSERTION OF INFUSION DEV INTO SUP VENA CAVA, PERC APPROACH 2019-11-12 00:00:00 [facility] ULTRASONOGRAPHY OF SUPERIOR VENA CAVA, GUIDANCE 2019-11-12 00:00 :00 [facility] Plan of Care Planned Activity Planned Date Details Comments Source Instructions Back Pain [facility] Encounters Start Date/Time End Date/Time Encounter Type Admission Type [facility] Facility Care Department Encounter ID Source 2020-01-14 00:00:00 2020-01-14 00:00:[address] [facility] [id number] 2019-12-28 21:05:00 2019-12-28 22:29:00 Departed Emergency Room [facility] [id number] [facility] [place] 2019-11-12 14:04:00 2019-11-19 13:00:00 Discharged Inpatient 1 TERA LILY [facility] [id number] [facility] 2019-11-11 00:00:00 2019-11-11 00:00:00 Telephone James Howe [facility] [id number] 2019-11-10 00:00:00 2019-11-10 00:00:[address] [facility] [id number] 2019-11-02 16:49:35 2019-11-02 16:49:35 [facility]med[facility] [id number] 2019-10-06 00:00:00 2019-10-06 00:00:00 Telephone [facility] [id number] 2019-09-30 00:00:00 2019-09-30 00:00:00 Telephone Wenceslao Willingham [facility] [id number] 2019-09-29 00:00:00 2019-09-29 00:00:00 Telephone Antonella Borjas [facility] [id number] 2019-09-23 00:00:00 2019-09-23 00:00:00 Telephone Wenceslao Willingham [facility] [id number] 2019-08-12 14:40:00 2019-08-14 10:58:00 Discharged Inpatient 1 HERNAN BADILLO [facility] [id number] [facility] Results Test Description Test Time Test Comments Results Result Comments Source CHEST SINGLE (PORTABLE) 2020-02-05 22:06:00 [facility] [address] [place] [address] Patient Name: GEOVANNA MCGARRY MR #: [id number] : 1955 Age/Sex: 64/F Req #: [id number] Adm Physician: Ordered by: WENCESLAO GARCIA MD Report #: [id number] Location: ER Room/Bed: Procedure: [id number] DX/CHEST SINGLE (PORTABLE) Exam Date: 02/05/20 Exam Time: 2114 REPORT STATUS: Signed EXAMINATION: CHEST SINGLE (PORTABLE) INDICATION: sob,cough, chest pain COMPARISON: CT dated 11/18/2019. Radiograph dated 11/15/2019 FINDINGS: TUBES and LINES: None. LUNGS: Normal lung volumes. Unchanged hazy densities at the lung bases likely due to breast prosthesis. PLEURA: No pleural effusion or pneumothorax. HEART AND MEDIASTINUM: The cardiomediastinal silhouette is unremarkable. BONES AND SOFT TISSUES: No acute osseous lesion. Soft tissues are unremarkable. UPPER ABDOMEN: No free air under the diaphragm. IMPRESSION: No definite consolidation. Breast prostheses produce hazy densities at the lung bases, which mildly limits evaluation. A lateral view could be helpful to exclude basilar airspace disease. Signed by: Ronnie Nguyen MD on 02/05/2020 10:11 PM Dictated By: RONNIE NGUYEN MD 10 Transcribed By: EILEEN on 02/05/202210 COPY TO: WENCESLAO GARCIA MD Serum or plasma carcinoembryonic antigen measurement ( mass/volume) 2019-11-19 05:20:00 Test Item Carcinoembryonic Antigen (test code = 2039-6) 3.7 0.0-4.7 Nonsmokers <3.9 Smokers <5.6[employer] Electrochemiluminescence Immunoassay(ECLIA)Values obtained with different assay methods or kitscannot be used interchangeably. Results cannot beinterpreted as absolute evidence of the presence orabsence of malignant disease.Performed at: - [facility] [id number] Director: Baldomero Combs MD, Phone: [phone] Health [facility] HospitalCT CHEST [id number] 15:30:00 [facility] [address] [place] [address] Patient Name: GEOVANNA MCGARRY MR #: [id number] : 1955 Age/Sex: 64/F Req #: [id number] Adm Physician: LILY HALEY MD Ordered by: ERUM RAMOS MD Report #: [id number] Location: MED/SURG Room/Bed: [facility] Procedure: [id number] CT/CT CH EST W Exam Date: 11/18/19 Exam Time: 1140 REPORT STATUS: Signed EXAM: CT Chest WITH intravenous contrast 11/18/2019 11:40 AM INDICATION: Lung cancer COMPARISON: Chest radiograph 11/15/2019 TECHNIQUE: Chest was scanned utilizing a multide Textbrokertor helical scanner from the lung apex through [...] Signed By: GEORGE DOHERTY MD on 11/18/19 1535 Transcribed By: EILEEN on 1535 COPY TO: ERUM RAMOS MD Urine color [id number] 14:50:00* Test Item Value Reference Range Interpretation Comments Urine Color (test code = 5778-6) STRAW YELLOW [facility] Hospital[facility] [id number] 14:50:00* Test Item Value Reference Range Interpretation Comments Urine Clarity (test code = 06029-9) SL CLOUDY CLEAR [facility] Urine by Test strip 2019-11-16 14:50:00* Test Item Value Reference Range Interpretation Comments Urine Specific [place] (test code = 5811-5) 1.025 1.010-1.02 5 [facility] Hospital[facility] pH measurement by automated test [id number] 14:50:00* Test Item Value Reference Range Interpretation Comments Urine pH (test code = 62418-8) 7 5-7 [facility] HospitalU[facility] leukocyte esterase detection by [id number] 14:50:00* Test Item Value Reference Range Interpretation Comments Urine Leukocyte Esterase (test code = 5799-2) NEGATIVE NEGATIVE [facility] HospitalUrine nitrite [id number] 14:50:00* Test Item Value Reference Range Interpretation Comments Urine Nitrite (test code = 69292-6) NEGATIVE NEGATIVE [facility] HospitalUrine protein measurement by test strip (mass/volume)2019-11-16 14:50:00* Test Item Value Reference Range Interpretation Comments Urine Protein (test code = 5804-0) NEGATIVE NEGATIVE [facility] HospitalUrine glucose [id number] 14:50:00* Test Item Value Reference Range Interpretation Comments Urine Glucose (UA) (test code = 2349-9) NEGATIVE NEGATIVE [facility] HospitalUrine ketones detection by automated test [id number] 14:50:00* Test Item Value Reference Range Interpretation Comments Urine Ketones (test code = 99453-6) NEGATIVE NEGATIVE [facility] HospitalUrine opiates screening [id number] 14:50:00* Test Item Value Reference Range Interpretation Comments Urine Opiates Screen (test code = 29790-2) POSITIVE NEGATIVE ALL TESTS PERFORMED MANUALLY ON [employer] TOX/SEE TEST This test provides only a sc reen. Positive results should be repeated by a confirmatory test.[facility] HospitalBarbiturates screen, [id number] 14:50:00* Test Item Value Reference Range Interpretation Comments Urine Barbiturates Screen (test code = 657936762) NEGATIVE NEGA TIVE [facility] HospitalUrine phencyclidine detection by screening [id number] 14:50:00* Test Item Value Reference Range Interpretation Comments Urine Phencyclidine Screen (test code = 00768-1) NEGATIVE NEGAT ADOLPH [facility] HospitalUrine amphetamines detection by screen method > 1000 ng/[id number] 14:50:00* Test Item Value Reference Range Interpretation Comments Urine Amphetamines Screen (test code = 61686-2) NEGATIVE NEGATI VE [facility] HospitalFluoroscopic procedure less than one hour [id number] 14:50:00* Test Item Value Reference Range Interpretation Comments Urine Methamphetamines Screen (test code = Urine Metha mphetamines Screen) NEGATIVE NEGATIVE [facility] HospitalUrine benzodiazepines detection by screening [id number] 14:50:00* Test Item Value Reference Range Interpretation Comments Urine Benzodiazepines Screen (test code = 54595-9) NEGATIVE NEG ATIVE [facility] HospitalUrine cocaine measurement (mass/volume) 2019-11-16 14:50:00* Test Item Value Reference Range Interpretation Comments Urine Cocaine Screen (test code = 3398-5) NEGATIVE NEGATIVE [facility] HospitalUrine cannabinoids detection by screening [id number] 14:50:00* Test Item Value Reference Range Interpretation Comments Urine Cannabinoids Screen (test code = 88479-1) NEGATIVE NEGATI VE THESE RESULTS ARE FOR MEDICAL TREATMENT ONLYTHIS REPORT CONTAINS UNCONFIR MED SCREENING RESULTS*POSITIVE RESULTS WILL BE CONFIRMED BY REFERENCE LAB UPON R EQUEST CUT-OFFDRUG CLASS CONCENTRATION ng/mLAmphetamines 1000Methamphetamines 1000Cocaine 300Opiate 300Phencyc lidine 25Cannabinoid 50Barbiturates 300Benzodiazepine 300Methadone 300[facility] tozpql8812-61-01 14:50:00* Test Item Value Reference Range Interpretation Comments Urine Methadone Screen (test code = 07705-1) NEGATIVE NEGATIVE THESE RESULTS ARE FOR MEDICAL TREATMENT ONLYTHIS REPORT CONTAINS UNCONFIR MED SCREENING RESULTS*POSITIVE RESULTS WILL BE CONFIRMED BY REFERENCE LAB UPON R EQUEST CUT-OFFDRUG CLASS CONCENTRATION ng/mLAmphetamines 1000Methamphetamines 1000Cocaine Metabolite 300Opiate 300Phencyc lidine 25Cannabinoid 50Barbiturates 300Benzodiazepine 300Methadone 300[facility] urobilinogen measurement by test strip (mass/volume)2019-11-16 14:50:00* Test Item Value Reference Range Interpretation Comments Urine Urobilinogen (test code = 92148-0) 0.2 0.2-1 [facility] HospitalUrine total bilirubin measurement (mass/volume)2019-11-16 14:50:00* Test Item Value Reference Range Interpretation Comments Urine Bilirubin (test code = 1978-6) NEGATIVE NEGATIVE [facility] HospitalUrine erythrocytes [id number] 14:50:00* Test Item Value Reference Range Interpretation Comments Urine Blood (test code = 56238-6) MODERATE NEGATIVE [facility] HospitalAutomated urine sediment leukocyte count by microscopy (number/high power field)2019-11-16 14:50:00* Test Item Value Reference Range Interpretation Comments Urine WBC (test code = 5821-4) NONE 0-5 [facility] HospitalErythrocytes detection in urine sediment by light arjykpxily6613-74-30 14:50:00* Test Item Value Reference Range Interpretation Comments Urine RBC (test code = 95867-6) 21-50 0-5 [facility] HospitalBacteria detection in urine sediment by light wikwiwkgic3880-54-15 14:50:00* Test Item Value Reference Range Interpretation Comments Urine Bacteria (test code = 91193-3) FEW NONE [facility] HospitalEpithelial cells detection in urine sediment by light jxwgfjxwna4453-94-70 14:50:00* Test Item Value Reference Range Interpretation Comments Urine Epithelial Cells (test code = 50508-5) NONE NONE [facility] HospitalUrine color [id number] 14:50:00* Test Item Value Reference Range Interpretation Comments Urine Color (test code = 5778-6) STRAW YELLOW [facility] HospitalUrine [id number] 14:50:00* Test Item Value Reference Range Interpretation Comments Urine Clarity (test code = 99290-7) SL CLOUDY CLEAR [facility] gravity of Urine by Test strip 2019-11-16 14:50:00* Test Item Value Reference Range Interpretation Comments Urine Specific [place] (test code = 5811-5) 1.025 1.010-1.02 5 [facility] HospitalUrine pH measurement by automated test [id number] 14:50:00* Test Item Value Reference Range Interpretation Comments Urine pH (test code = 06994-2) 7 5-7 [facility] HospitalUrine leukocyte esterase detection by wowbctcx4063-79-90 14:50:00* Test Item Value Reference Range Interpretation Comments Urine Leukocyte Esterase (test code = 5799-2) NEGATIVE NEGATIVE [facility] HospitalUrine nitrite [id number] 14:50:00* Test Item Value Reference Range Interpretation Comments Urine Nitrite (test code = 56914-1) NEGATIVE NEGATIVE [facility] HospitalUrine protein measurement by test strip (mass/volume)2019-11-16 14:50:00* Test Item Value Reference Range Interpretation Comments Urine Protein (test code = 5804-0) NEGATIVE NEGATIVE [facility] HospitalUrine glucose [id number] 14:50:00* Test Item Value Reference Range Interpretation Comments Urine Glucose (UA) (test code = 2349-9) NEGATIVE NEGATIVE [facility] HospitalUrine ketones detection by automated test [id number] 14:50:00* Test Item Value Reference Range Interpretation Comments Urine Ketones (test code = 70611-8) NEGATIVE NEGATIVE [facility] HospitalUrine opiates screening [id number] 14:50:00* Test Item Value Reference Range Interpretation Comments Urine Opiates Screen (test code = 92555-8) POSITIVE NEGATIVE ALL TESTS PERFORMED MANUALLY ON [employer] TOX/SEE TEST This test provides only a sc reen. Positive results should be repeated by a confirmatory test.[facility] HospitalBarbiturates screen, [id number] 14:50:00* Test Item Value Reference Range Interpretation Comments Urine Barbiturates Screen (test code = 834878584) NEGATIVE NEGA TIVE [facility] HospitalUrine phencyclidine detection by screening [id number] 14:50:00* Test Item Value Reference Range Interpretation Comments Urine Phencyclidine Screen (test code = 31513-7) NEGATIVE NEGAT ADOLPH [facility] HospitalUrine amphetamines detection by screen method > 1000 ng/[id number] 14:50:00* Test Item Value Reference Range Interpretation Comments Urine Amphetamines Screen (test code = 43953-9) NEGATIVE NEGATI VE [facility] HospitalFluoroscopic procedure less than one hour mavydjle7156-33-90 14:50:00* Test Item Value Reference Range Interpretation Comments Urine Methamphetamines Screen (test code = Urine Metha mphetamines Screen) NEGATIVE NEGATIVE [facility] HospitalUrine benzodiazepines detection by screening [id number] 14:50:00* Test Item Value Reference Range Interpretation Comments Urine Benzodiazepines Screen (test code = 15744-2) NEGATIVE NEG ATIVE [facility] HospitalUrine cocaine measurement (mass/volume) 2019-11-16 14:50:00* Test Item Value Reference Range Interpretation Comments Urine Cocaine Screen (test code = 3398-5) NEGATIVE NEGATIVE [facility] HospitalUrine cannabinoids detection by screening [id number] 14:50:00* Test Item Value Reference Range Interpretation Comments Urine Cannabinoids Screen (test code = 22893-3) NEGATIVE NEGATI VE THESE RESULTS ARE FOR MEDICAL TREATMENT ONLYTHIS REPORT CONTAINS UNCONFIR MED SCREENING RESULTS*POSITIVE RESULTS WILL BE CONFIRMED BY REFERENCE LAB UPON R EQUEST CUT-OFFDRUG CLASS CONCENTRATION ng/mLAmphetamines 1000Methamphetamines 1000Cocaine 300Opiate 300Phencyc lidine 25Cannabinoid 50Barbiturates 300Benzodiazepine 300Methadone 300[facility] HospitalUrine methadone [id number] 14:50:00* Test Item Value Reference Range Interpretation Comments Urine Methadone Screen (test code = 63996-6) NEGATIVE NEGATIVE THESE RESULTS ARE FOR MEDICAL TREATMENT ONLYTHIS REPORT CONTAINS UNCONFIR MED SCREENING RESULTS*POSITIVE RESULTS WILL BE CONFIRMED BY REFERENCE LAB UPON R EQUEST CUT-OFFDRUG CLASS CONCENTRATION ng/mLAmphetamines 1000Methamphetamines 1000Cocaine Metabolite 300Opiate 300Phencyc lidine 25Cannabinoid 50Barbiturates 300Benzodiazepine 300Methadone 300[facility] HospitalUrine urobilinogen measurement by test strip (mass/volume)2019-11-16 14:50:00* Test Item Value Reference Range Interpretation Comments Urine Urobilinogen (test code = 60026-5) 0.2 0.2-1 [facility] HospitalUrine total bilirubin measurement (mass/volume)2019-11-16 14:50:00* Test Item Value Reference Range Interpretation Comments Urine Bilirubin (test code = 1978-6) NEGATIVE NEGATIVE [facility] HospitalUrine erythrocytes [id number] 14:50:00* Test Item Value Reference Range Interpretation Comments Urine Blood (test code = 35458-1) MODERATE NEGATIVE [facility] HospitalAutomated urine sediment leukocyte count by microscopy (number/high power field)2019-11-16 14:50:00* Test Item Value Reference Range Interpretation Comments Urine WBC (test code = 5821-4) NONE 0-5 [facility] HospitalErythrocytes detection in urine sediment by light khhfuthtqw3591-18-88 14:50:00* Test Item Value Reference Range Interpretation Comments Urine RBC (test code = 47145-6) 21-50 0-5 [facility] HospitalBacteria detection in urine sediment by light ehmimtkhdi8899-69-42 14:50:00* Test Item Value Reference Range Interpretation Comments Urine Bacteria (test code = 72303-0) FEW NONE [facility] HospitalEpithelial cells detection in urine sediment by light tsnjofkljx9609-77-21 14:50:00* Test Item Value Reference Range Interpretation Comments Urine Epithelial Cells (test code = 19538-1) NONE NONE [facility] HospitalBlood leukocytes automated count (number/volume)2019-11-16 05:30:00* Test Item Value Reference Range Interpretation Comments White Blood Count (test code = 6690-2) 11.12 4.8-10.8 [facility] HospitalBlood erythrocytes automated count (number/volume)2019-11-16 05:30:00* Test Item Value Reference Range Interpretation Comments Red Blood Count (test code = 789-8) 4.04 3.6-5.1 [facility] HospitalBlood hemoglobin measurement (moles/volume)2019-11-16 05:30:00* Test Item Value Reference Range Interpretation Comments Hemoglobin (test code = 86013-7) 11.7 12.0-16.0 [facility] HospitalAutomated blood hematocrit (volume fraction)2019-11-16 05:30:00* Test Item Value Reference Range Interpretation Comments Hematocrit (test code = 4544-3) 37.4 34.2-44.1 [facility] HospitalAutomated erythrocyte mean corpuscular fvqlqe1393-13-14 05:30:00* Test Item Value Reference Range Interpretation Comments Mean Corpuscular Volume (test code = 787-2) 92.6 81-99 [facility] HospitalAutomated erythrocyte mean corpuscular hemoglobin (mass per erythrocyte)2019-11-16 05:30:00* Test Item Value Reference Range Interpretation Comments Mean Corpuscular Hemoglobin (test code = 785-6) 29.0 28-32 [facility] HospitalAutomated erythrocyte mean corpuscular hemoglobin concentration measurement (mass/volume)2019-11-16 05:30:00* Test Item Value Reference Range Interpretation Comments Mean Corpuscular Hemoglobin Concent (test code = 786-4) 31.3 31-35 [facility] HospitalRDW VyqNc-Zru5177-56-11 05:30:00* Test Item Value Reference Range Interpretation Comments Red Cell Distribution Width (test code = 46519-0) 13.2 11.7 -14.4 [facility] HospitalAutomated blood platelet count (count/volume)2019-11-16 05:30:00* Test Item Value Reference Range Interpretation Comments Platelet Count (test code = 777-3) 232 140-360 [facility] HospitalAutomated blood segmented neutrophil count as percentage of total qfbyckzedz3921-34-84 05:30:00* Test Item Value Reference Range Interpretation Comments Neutrophils (%) (Auto) (test code = 35409-6) 79.2 38.7-80.0 [facility] HospitalAutomated blood lymphocyte count as percentage ot total hpjhkdpdkr3789-47-41 05:30:00* Test Item Value Reference Range Interpretation Comments Lymphocytes (%) (Auto) (test code = 736-9) 13.3 18.0-39.1 [facility] HospitalAutomated blood monocyte count as percentage of total uaksgfqaoq1054-21-73 05:30:00* Test Item Value Reference Range Interpretation Comments Monocytes (%) (Auto) (test code = 5905-5) 6.7 4.4-11.3 [facility] HospitalAutomated blood eosinophil count as percentage of total advzfiyefu9886-53-80 05:30:00* Test Item Value Reference Range Interpretation Comments Eosinophils (%) (Auto) (test code = 713-8) 0.0 0.0-6.0 [facility] HospitalAutomated blood basophil count as percentage of total jdhvwpltog6362-17-09 05:30:00* Test Item Value Reference Range Interpretation Comments Basophils (%) (Auto) (test code = 706-2) 0.1 0.0-1.0 [facility] HospitalFluoroscopic procedure less than one hour uwsgwxwr8732-96-32 05:30:00* Test Item Value Reference Range Interpretation Comments IM GRANULOCYTES % (test code = IM GRANULOCYTES %) 0.7 0.0- 1.0 [facility] HospitalAutomated blood neutrophil count 2019-11-16 05:30:00* Test Item Value Reference Range Interpretation Comments Neutrophils # (Auto) (test code = 751-8) 8.8 2.1-6.9 [facility]Bl[facility] lymphocytes count (number/volume) 2019-11-16 05:30:00* Test Item Value Reference Range Interpretation Comments Lymphocytes # (Auto) (test code = 17739-3) 1.5 1.0-3.2 [facility] HospitalBlriver[facility] monocytes automated count (number/volume)2019-11-16 05:30:00* Test Item Value Reference Range Interpretation Comments Monocytes # (Auto) (test code = 742-7) 0.8 0.2-0.8 [facility] HospitalAutomated blood eosinophil count 2019-11-16 05:30:00* Test Item Value Reference Range Interpretation Comments Eosinophils # (Auto) (test code = 711-2) 0.0 0.0-0.4 [facility] HospitalAutomated blood basophil count (count/volume)2019-11-16 05:30:00* Test Item Value Reference Range Interpretation Comments Basophils # (Auto) (test code = 704-7) 0.0 0.0-0.1 [facility] HospitalFluoroscopic procedure less than one hour kybndybg0203-93-10 05:30:00* Test Item Value Reference Range Interpretation Comments Absolute Immature Granulocyte (auto (jorge t code = Absolute Immature Granulocyte (auto) 0.08 0-0.1 [facility] sodium measurement (moles/volume)2019-11-16 05:30:00* Test Item Value Reference Range Interpretation Comments Sodium Level (test code = 2951-2) 141 136-145 [facility] or plasma potassium measurement (moles/volume)2019-11-16 05:30:00* Test Item Value Reference Range Interpretation Comments Potassium Level (test code = 2823-3) 4.4 3.5-5.1 [facility] or plasma chloride measurement (moles/volume)2019-11-16 05:30:00* Test Item Value Reference Range Interpretation Comments Chloride Level (test code = 2075-0) 96 98-107 [facility] or plasma carbon dioxide, total measurement (moles/volume)2019-11-16 05:30:00* Test Item Value Reference Range Interpretation Comments Carbon Dioxide Level (test code = 2028-9) 38 22-29 [facility] or plasma anion szv9908-96-93 05:30:00* Test Item Value Reference Range Interpretation Comments Anion Gap (test code = 27715-8) 11.4 8-16 [facility] or plasma urea nitrogen measurement (mass/volume)2019-11-16 05:30:00* Test Item Value Reference Range Interpretation Comments Blood Urea Nitrogen (test code = 3094-0) 18 7-26 [facility] or plasma creatinine measurement (mass/volume)2019-11-16 05:30:00* Test Item Value Reference Range Interpretation Comments Creatinine (test code = 2160-0) 0.64 0.57-1.11 [facility] or plasma urea nitrogen/creatinine mass ckuqx9847-26-07 05:30:00* Test Item Value Reference Range Interpretation Comments BUN/Creatinine Ratio (test code = 3097-3) 28 6-25 [facility] HospitalEstimated glomerular filtration rate (GFR) naqixxqrayabq9434-17-91 05:30:00* Test Item Value Reference Range Interpretation Comments Estimat Glomerular Filtration Rate (test code = 350157751) > 60 >60 Ranges were taken from the National Kidney Disease Education Program and the [facility] Kid[facility] Foundation literature.Reference ranges:60 or greater: Tkaxry33-85 ( for 3 consecutive months): Chronic kidney disease 15 or less: Kidney failureTexas Health Arlington Memorial HospitalGlucose xxmkkoosnsa4223-62-62 05:30:00* Test Item Value Reference Range Interpretation Comments Glucose Level (test code = TUC7807) 99 74-118 [facility]ere[facility] or plasma calcium measurement (mass/volume)2019-11-16 05:30:00* Test Item Value Reference Range Interpretation Comments Calcium Level (test code = 39911-0) 9.3 8.4-10.2 [facility] or plasma total bilirubin measurement (mass/volume)2019-11-16 05:30:00* Test Item Value Reference Range Interpretation Comments Total Bilirubin (test code = 1975-2) 0.3 0.2-1.2 [facility] HospitalFluoroscopic procedure less than one hour vofeupnc8624-69-85 05:30:00* Test Item Value Reference Range Interpretation Comments Aspartate Amino Transf (AST/SGOT) (test code = Aspartate Amino Transf (AST/SGOT)) 34 5-34 [facility]ererum or plasma alanine aminotransferase measurement (enzymatic activity/volume)2019-11-16 05:30:00* Test Item Value Reference Range Interpretation Comments Alanine Aminotransferase (ALT/SGPT) (test code = 1742-6) 27 0-55 [facility] or plasma protein measurement (mass/volume)2019-11-16 05:30:00* Test Item Value Reference Range Interpretation Comments Total Protein (test code = 2885-2) 6.3 6.5-8.1 [facility] or plasma albumin measurement (mass/volume)2019-11-16 05:30:00* Test Item Value Reference Range Interpretation Comments Albumin (test code = 1751-7) 3.3 3.5-5.0 [facility] HospitalPlasma globulin measurement (mass/volume) 2019-11-16 05:30:00* Test Item Value Reference Range Interpretation Comments Globulin (test code = 82241-3) 3.0 2.3-3.5 [facility] or plasma albumin/globulin mass umfoh2430-72-47 05:30:00* Test Item Value Reference Range Interpretation Comments Albumin/Globulin Ratio (test code = 1759-0) 1.1 0.8-2.0 [facility] or plasma alkaline phosphatase measurement (enzymatic activity/volume)2019-11-16 05:30:00* Test Item Value Reference Range Interpretation Comments Alkaline Phosphatase (test code = 6768-6) 96 40-150 [facility] HospitalBNP Wgh-jDpn5672-10-11 05:30:00* Test Item Value Reference Range Interpretation Comments B-Type Natriuretic Peptide (test code = 91656-6) 88.6 0-100 [facility] HospitalBlood leukocytes automated count (number/volume)2019-11-16 05:30:00* Test Item Value Reference Range Interpretation Comments White Blood Count (test code = 6690-2) 11.12 4.8-10.8 [facility] HospitalBlood erythrocytes automated count (number/volume)2019-11-16 05:30:00* Test Item Value Reference Range Interpretation Comments Red Blood Count (test code = 789-8) 4.04 3.6-5.1 [facility] HospitalBlood hemoglobin measurement (moles/volume)2019-11-16 05:30:00* Test Item Value Reference Range Interpretation Comments Hemoglobin (test code = 58301-1) 11.7 12.0-16.0 [facility] HospitalAutomated blood hematocrit (volume fraction)2019-11-16 05:30:00* Test Item Value Reference Range Interpretation Comments Hematocrit (test code = 4544-3) 37.4 34.2-44.1 [facility] HospitalAutomated erythrocyte mean corpuscular bjznms8364-54-38 05:30:00* Test Item Value Reference Range Interpretation Comments Mean Corpuscular Volume (test code = 787-2) 92.6 81-99 [facility] HospitalAutomated erythrocyte mean corpuscular hemoglobin (mass per erythrocyte)2019-11-16 05:30:00* Test Item Value Reference Range Interpretation Comments Mean Corpuscular Hemoglobin (test code = 785-6) 29.0 28-32 [facility] HospitalAutomated erythrocyte mean corpuscular hemoglobin concentration measurement (mass/volume)2019-11-16 05:30:00* Test Item Value Reference Range Interpretation Comments Mean Corpuscular Hemoglobin Concent (test code = 786-4) 31.3 31-35 [facility] HospitalRDW YjfBl-Zhi2895-92-11 05:30:00* Test Item Value Reference Range Interpretation Comments Red Cell Distribution Width (test code = 69271-5) 13.2 11.7 -14.4 [facility] HospitalAutomated blood platelet count (count/volume)2019-11-16 05:30:00* Test Item Value Reference Range Interpretation Comments Platelet Count (test code = 777-3) 232 140-360 [facility] HospitalAutomated blood segmented neutrophil count as percentage of total ekrreyymmb5004-79-09 05:30:00* Test Item Value Reference Range Interpretation Comments Neutrophils (%) (Auto) (test code = 48173-0) 79.2 38.7-80.0 [facility] HospitalAutomated blood lymphocyte count as percentage ot total xhhvgovnmk4043-59-56 05:30:00* Test Item Value Reference Range Interpretation Comments Lymphocytes (%) (Auto) (test code = 736-9) 13.3 18.0-39.1 [facility] HospitalAutomated blood monocyte count as percentage of total epnngrosng3593-10-74 05:30:00* Test Item Value Reference Range Interpretation Comments Monocytes (%) (Auto) (test code = 5905-5) 6.7 4.4-11.3 [facility] HospitalAutomated blood eosinophil count as percentage of total mumledgjop0513-02-30 05:30:00* Test Item Value Reference Range Interpretation Comments Eosinophils (%) (Auto) (test code = 713-8) 0.0 0.0-6.0 [facility] HospitalAutomated blood basophil count as percentage of total nkpdcwfhaa0703-66-83 05:30:00* Test Item Value Reference Range Interpretation Comments Basophils (%) (Auto) (test code = 706-2) 0.1 0.0-1.0 [facility] HospitalFluoroscopic procedure less than one hour kplqhhnb4066-67-38 05:30:00* Test Item Value Reference Range Interpretation Comments IM GRANULOCYTES % (test code = IM GRANULOCYTES %) 0.7 0.0- 1.0 [facility] HospitalAutomated blood neutrophil count 2019-11-16 05:30:00* Test Item Value Reference Range Interpretation Comments Neutrophils # (Auto) (test code = 751-8) 8.8 2.1-6.9 [facility] HospitalBlood lymphocytes count (number/volume) 2019-11-16 05:30:00* Test Item Value Reference Range Interpretation Comments Lymphocytes # (Auto) (test code = 12871-2) 1.5 1.0-3.2 [facility] HospitalBlriver[facility] clinic monocytes automated count (number/volume)2019-11-16 05:30:00* Test Item Value Reference Range Interpretation Comments Monocytes # (Auto) (test code = 742-7) 0.8 0.2-0.8 [facility] HospitalAutomated blood eosinophil count 2019-11-16 05:30:00* Test Item Value Reference Range Interpretation Comments Eosinophils # (Auto) (test code = 711-2) 0.0 0.0-0.4 [facility] HospitalAutomated blood basophil count (count/volume)2019-11-16 05:30:00* Test Item Value Reference Range Interpretation Comments Basophils # (Auto) (test code = 704-7) 0.0 0.0-0.1 [facility] HospitalFluoroscopic procedure less than one hour mzhusvmy6553-70-57 05:30:00* Test Item Value Reference Range Interpretation Comments Absolute Immature Granulocyte (auto (jorge t code = Absolute Immature Granulocyte (auto) 0.08 0-0.1 [facility] or plasma sodium measurement (moles/volume)2019-11-16 05:30:00* Test Item Value Reference Range Interpretation Comments Sodium Level (test code = 2951-2) 141 136-145 [facility]ererum or plasma potassium measurement (moles/volume)2019-11-16 05:30:00* Test Item Value Reference Range Interpretation Comments Potassium Level (test code = 2823-3) 4.4 3.5-5.1 [facility]ererum or plasma chloride measurement (moles/volume)2019-11-16 05:30:00* Test Item Value Reference Range Interpretation Comments Chloride Level (test code = 2075-0) 96 98-107 [facility]ererum or plasma carbon dioxide, total measurement (moles/volume)2019-11-16 05:30:00* Test Item Value Reference Range Interpretation Comments Carbon Dioxide Level (test code = 2028-9) 38 22-29 [facility]ererum or plasma anion gig1113-32-98 05:30:00* Test Item Value Reference Range Interpretation Comments Anion Gap (test code = 28200-0) 11.4 8-16 [facility]ererum or plasma urea nitrogen measurement (mass/volume)2019-11-16 05:30:00* Test Item Value Reference Range Interpretation Comments Blood Urea Nitrogen (test code = 3094-0) 18 7-26 [facility]ererum or plasma creatinine measurement (mass/volume)2019-11-16 05:30:00* Test Item Value Reference Range Interpretation Comments Creatinine (test code = 2160-0) 0.64 0.57-1.11 [facility]ererum or plasma urea nitrogen/creatinine mass fblnk6039-80-82 05:30:00* Test Item Value Reference Range Interpretation Comments BUN/Creatinine Ratio (test code = 3097-3) 28 6-25 [facility] HospitalEstimated glomerular filtration rate (GFR) wofsfttgcgnvo3480-81-24 05:30:00* Test Item Value Reference Range Interpretation Comments Estimat Glomerular Filtration Rate (test code = 862239662) > 60 >60 Ranges were taken from the National Kidney Disease Education Program and the [facility] literature.Reference ranges:60 or greater: Efgjew26-94 ( for 3 consecutive months): Chronic kidney disease 15 or less: Kidney failureTexas Health Arlington Memorial HospitalGlucose vdneelubcwl0468-38-17 05:30:00* Test Item Value Reference Range Interpretation Comments Glucose Level (test code = VGK4411) 99 74-118 [facility]ere[facility] or plasma calcium measurement (mass/volume)2019-11-16 05:30:00* Test Item Value Reference Range Interpretation Comments Calcium Level (test code = 71987-6) 9.3 8.4-10.2 [facility]ererum or plasma total bilirubin measurement (mass/volume)2019-11-16 05:30:00* Test Item Value Reference Range Interpretation Comments Total Bilirubin (test code = 1975-2) 0.3 0.2-1.2 [facility] HospitalFluoroscopic procedure less than one hour gblhcifb1590-05-58 05:30:00* Test Item Value Reference Range Interpretation Comments Aspartate Amino Transf (AST/SGOT) (test code = Aspartate Amino Transf (AST/SGOT)) 34 5-34 [facility] Centererum or plasma alanine aminotransferase measurement (enzymatic activity/volume)2019-11-16 05:30:00* Test Item Value Reference Range Interpretation Comments Alanine Aminotransferase (ALT/SGPT) (test code = 1742-6) 27 0-55 [facility]ererum or plasma protein measurement (mass/volume)2019-11-16 05:30:00* Test Item Value Reference Range Interpretation Comments Total Protein (test code = 2885-2) 6.3 6.5-8.1 [facility]ere[facility] or plasma albumin measurement (mass/volume)2019-11-16 05:30:00* Test Item Value Reference Range Interpretation Comments Albumin (test code = 1751-7) 3.3 3.5-5.0 [facility] HospitalPlasma globulin measurement (mass/volume) 2019-11-16 05:30:00* Test Item Value Reference Range Interpretation Comments Globulin (test code = 30280-0) 3.0 2.3-3.5 [facility]ere[facility] or plasma albumin/globulin mass hxnll3214-61-58 05:30:00* Test Item Value Reference Range Interpretation Comments Albumin/Globulin Ratio (test code = 1759-0) 1.1 0.8-2.0 [facility]ererum or plasma alkaline phosphatase measurement (enzymatic activity/volume)2019-11-16 05:30:00* Test Item Value Reference Range Interpretation Comments Alkaline Phosphatase (test code = 6768-6) 96 40-150 [facility] HospitalBNP Crx-kStf0012-77-11 05:30:00* Test Item Value Reference Range Interpretation Comments B-Type Natriuretic Peptide (test code = 76116-3) 88.6 0-100 [facility] HospitalCHEST SINGLE (PORTABLE)2019-11-15 08:24:00 [facility] [address] [address] Patient Name: GEOVANNA MCGARRY MR #: [id number] : 1955 Age/Sex: 64/F Req #: [id number] Adm Physician: LILY HALEY MD Ordered by: HARPREET JOEL MD Report #: [id number] Location: ICU Room/Bed: ICU [facility] Procedure: [id number] DX/CHEST SIN GLE (PORTABLE) Exam Date: 11/15/19 [...] unremarkable. Bones and soft tissues: No ac [place] bony abnormalities. IMPRESSION: 1. No acute cardiopulmonar y abnormalities. Signed by: Dr. Sadia Coronado M.D. on 11/15/2019 8:26 AM Dictated By: SADIA CORONADO MD 5 Transcribed By: EILEEN on 11/15/19825 COPY TO: HARPREET JOEL MD Arterial blood pH egtmacuzaht3897-74-33 09:52:00* Test Item Value Reference Range Interpretation Comments Arterial Blood pH (test code = 2744-1) 7.27 7.35-7.45 [facility] HospitalpCO2 PtwZ1401-15-96 09:52:00* Test Item Value Reference Range Interpretation Comments Arterial Blood Partial Pressure CO2 (test code = 2019-8) 72 35-45 [facility] HospitalArterial blood bicarbonate measurement (moles/volume)2019-11-14 09:52:00* Test Item Value Reference Range Interpretation Comments Arterial Blood HCO3 (test code = 1960-4) 34 22-26 [facility] HospitalArterial blood base excess by calculation 2019-11-14 09:52:00* Test Item Value Reference Range Interpretation Comments Arterial Blood Base Excess (test code = 1925-7) 7.0 -2-3 [facility] HospitalFluoroscopic procedure less than one hour dwddzsoz7933-53-60 09:52:00* Test Item Value Reference Range Interpretation Comments FiO2 (test code = FiO2) 45 PT ON CPAP, PS- 10, +5, 45% IQL9DRETexas Health Arlington Memorial HospitalCHEST SINGLE (PORTABLE)2019-11-14 07:21:00 [address] [address] Patient Name: GEOVANNA MCGARRY MR #: [id number] : 1955 Age/Sex: 64/F Req #: [id number] Adm Physician: LILY HALEY MD Ordered by: PRERNA SCALES MD Report #: [id number] Location: ICU Room/Bed: ICU [facility] Procedure: [id number] DX/CHEST SINGL E (PORTABLE) Exam Date: 11/14/19 [...] Kinase (test code = 2157-6) 190 29-168 [facility] or plasma creatine kinase MB measurement (mass/volume)2019-11-13 16:20:00* Test Item Value Reference Range Interpretation Comments Creatine Kinase MB (test code = 35437-8) 3.90 0-5.0 [facility] HospitalTroponin I measurement by highly sensitive enzyme yzbzoduyyxh1567-00-62 16:20:00* Test Item Value Reference Range Interpretation Comments Troponin I (test code = 78386-4) 0.013 0-0.300 [facility] Centererum or plasma 25-hydroxyvitamin D measurement (mass/volume)2019-11-13 16:20:00* Test Item Value Reference Range Interpretation Comments 25-Hydroxy Vitamin D Total (test code = 52437-6) 12 . Reference Range:All Ages: Target levels 30 - 100[facility] Centererum or plasma 25-hydroxycalciferol measurement (mass/volume)2019-11-13 16:20:00* Test Item Value Reference Range Interpretation Comments 25-Hydroxy Vitamin D3 (test code = 05582-6) 12 . This test was developed and its performance characteristicsdetermined by [employer] . It has not been cleared or approvedby the Food and Drug Administration.Perform ed at: [facility] [id number] [place] [id number] Director: Foreign Barber MD, Phone: [phone] [facility] – Medical Centererum or plasma calcidiol measurement (mass/volume)2019-11-13 16:20:00* Test Item Value Reference Range Interpretation Comments 25-Hydroxy Vitamin D2 (test code = 1989-3) <1.0 . This test was developed and its performance characteristicsdetermined by [employer] . It has not been cleared or approvedby the Food and Drug Administration.[facility]ere[facility] or plasma creatine kinase measurement (enzymatic activity/volume)2019-11-13 16:20:00* Test Item Value Reference Range Interpretation Comments Creatine Kinase (test code = 2157-6) 190 29-168 [facility] Centererum or plasma creatine kinase MB measurement (mass/volume)2019-11-13 16:20:00* Test Item Value Reference Range Interpretation Comments Creatine Kinase MB (test code = 85316-3) 3.90 0-5.0 [facility] HospitalTroponin I measurement by highly sensitive enzyme vsizyywlino3522-10-32 16:20:00* Test Item Value Reference Range Interpretation Comments Troponin I (test code = 41391-0) 0.013 0-0.300 [facility] Centererum or plasma 25-hydroxyvitamin D measurement (mass/volume)2019-11-13 16:20:00* Test Item Value Reference Range Interpretation Comments 25-Hydroxy Vitamin D Total (test code = 02938-2) 12 . Reference Range:All Ages: Target levels 30 - [address] CenterSerum or plasma 25-hydroxycalciferol measurement (mass/volume)2019-11-13 16:20:00* Test Item Value Reference Range Interpretation Comments 25-Hydroxy Vitamin D3 (test code = 38033-6) 12 . This test was developed and its performance characteristicsdetermined by [facility] . It has not been cleared or approvedby the Food and Drug Administration.Perform ed at: [facility] [address] [place], [place] [id number] Director: Foreign Barber MD, Phone: [phone] [facility] Medical Centererum or plasma calcidiol measurement (mass/volume)2019-11-13 16:20:00* Test Item Value Reference Range Interpretation Comments 25-Hydroxy Vitamin D2 (test code = 1989-3) <1.0 . This test was developed and its performance characteristicsdetermined by [employer] . It has not been cleared or approvedby the Food and Drug Administration.[facility]2019-11-13 15:51:00 [place] [address] Patient Name: GEOVANNA MCGARRY MR #: [id number] : 1955 Age/Sex: 64/F Req #: [id number] Adm Physician: LILY HALEY MD Ordered by: PRERNA SCALES MD Report #: [id number] Location: ICU Room/Bed: ICU [facility] Procedure: [id number] DX/CHEST SINGL E (PORTABLE) Exam Date: 11/13/19 [...] 3:55 PM Dictated By: RENNY ANAND MD 54 Transcribed By: EILEEN on 11/13/191554 COPY TO: PRERNA SCALES MD CHEST SINGLE (PORTABLE)2019-11-13 09:43:00 [place] [address] Patient Name: GEOVANNA MCGARRY MR #: [id number] : 1955 Age/Sex: 64/F Req #: [id number] Adm Physician: LILY HALEY MD Ordered by: MARCELINO PATEL MD Rep ort #: [id number] Location: ICU Room/B ed: ICU 192-1 Procedure: [id number] DX/CHEST SINGL E (PORTABLE) Exam Date: 11/13/19 Exam Time: 0515 REPORT STATUS: Signed X-ray chest A P [...] on 11/13/19948 COPY TO: MARCELINO PATEL MD [facility] 2019-11-13 09:40:00 [place] [address] Patient Name: GEOVANNA MCGARRY MR #: [id number] : 1955 Age/Sex: 64/F Req #: [id number] Adm Physician: LILY HALEY MD Ordered by: MARCELINO PATEL MD Report #: [id number] Location: ICU Room/Bed: ICU 192 Procedure: [id number] DX/ABDOMEN-1VI EW (KUB) Exam Date: 11/13/19 Exam Time: 05 REPORT STATUS: Signed X-ray chest/abdom en AP [...] MARCELINO PATEL MD CHEST SINGLE (PORTABLE)2019-11-13 01:19:00 [place] [address] Patient Name: GEOVANNA MCGARRY MR #: [id number] : 1955 Age/Sex: 64/F Req #: [id number] Adm Physician: LILY HALEY MD Ordered by: MARCELINO PATEL MD Report #: [id number] Location: ICU Room/Bed: ICU [facility] Procedure: [id number] DX/CHEST SINGL E (PORTABLE) Exam Date: 11/12/19 Exam Time: 3420 REPORT STATUS: Signed EXAMINATION: CHEST SINGLE (PORTABLE) [...] ically Signed By: LYNDON MAYES DO on 11/13/19 012 Transcribed By: EILEEN on 11/13/19 012 COPY TO: MARCELINO PATEL MD Arterial blood pH kmdaoxbswms3176-36-19 01:10:00* Test Item Value Reference Range Interpretation Comments Arterial Blood pH (test code = 2744-1) 7.13 7.35-7.45 Results called/hand delivered to rt at 0233 on 11/13/19 by Armand Salas. RB [place]. [facility] QxzG5450-[facility]-15 01:10:00* Test Item Value Reference Range Interpretation Comments Arterial Blood Partial Pressure CO2 (test code = 2019-02) 123 35-45 [facility] OnrX9272-50-08 01:10:00* Test Item Value Reference Range Interpretation Comments Arterial Blood Partial Pressure O2 (test code = 2019-02) 96 80-105 [facility] HospitalArterial blood bicarbonate measurement (moles/volume)2019-11-13 01:10:00* Test Item Value Reference Range Interpretation Comments Arterial Blood HCO3 (test code = 1960-4) 41 22-26 [facility] HospitalArterial blood base excess by calculation 2019-11-13 01:10:00* Test Item Value Reference Range Interpretation Comments Arterial Blood Base Excess (test code = 1925-7) 12.0 -2-3 [facility] HospitalArterial blood oxygen saturation wmetnqkrhak0544-34-53 01:10:00* Test Item Value Reference Range Interpretation Comments Arterial Blood Oxygen Saturation (test code = 2708-6) 93.0 95-98 [facility] HospitalFluoroscopic procedure less than one hour kfozncch3140-46-11 01:10:00* Test Item Value Reference Range Interpretation Comments FiO2 (test code = FiO2) 60 [facility] HospitalpCO2 IbdV0414-97-69 01:10:00* Test Item Value Reference Range Interpretation Comments Arterial Blood Partial Pressure O2 (test code = 2019-8) 96 80-105 [facility] HospitalArterial blood oxygen saturation juykojckkda0816-88-54 01:10:00* Test Item Value Reference Range Interpretation Comments Arterial Blood Oxygen Saturation (test code = 2708-6) 93.0 95-98 [facility] HospitalCHEST SINGLE (PORTABLE)2019-11-12 23:10:00 [facility] [address] [place] [address] Patient Name: GEOVANNA MCGARRY MR #: [id number] : 1955 Age/Sex: 64/F Req #: [id number] Adm Physician: LILY HALEY MD Ordered by: MARCELINO PATEL MD Report #: [id number] Location: [facility] Room/Bed: [place] [address] Procedure: [id number] DX/CHEST SINGL E (PORTABLE) Exam Date: 11/12/19 Exam Time: 2210 REPORT STATUS: Signed EXAMINATION: CHEST SINGLE (PORTABLE) [...] TO: MARCELINO PATEL MD MRI SPINE LUMBAR TYG5891-60-90 21:06:00 [place] [address] Patient Name: GEOVANNA MCGARRY MR #: [id number] : 1955 Age/Sex: 64/F Req #: [id number] Adm Physician: LILY HALEY MD Ordered by: ARMAND REID DA[employer] FE[employer] WORKER Report #: [id number] Location: [facility] Room/Bed: [place] [address] Procedure: [id number] MRI/MRI SP INE LUMBAR WOW Exam Date: [...] 11/12/19 211 0 COPY TO: ARMAND REID [employer] WORKER MRI SPINE THORACIC WZX7902-93-83 20:46:00 [place] [address] Patient Name: GEOVANNA MCGARRY MR #: [id number] : 1955 Age/Sex: 64/F Req #: [id number] Adm Physician: LILY HALEY MD Ordered by: ARMAND REID DA[employer] FEED WORKER Report #: [id number] Location: [facility] Room/Bed: [place] [address] Procedure: [id number] MRI/MRI SP INE THORACIC WOW Exam Date: [...] MD, MD 04 COPY TO: MICHAEL REID [employer] FE[employer] WORKER Fluoroscopic procedure less than one hour sgknqdly1799-53-87 18:55:00* Test Item Value Reference Range Interpretation [...] to perform high complexity tests.Specimen sent to [facility] and testing performed by Clinical Pathology [address] [place] [address] [phone] Director: Ashutosh Henao M.D.CLIA # 4 [id number] [facility] CampusFluoroscopic procedure less than one hour widfmpsi4609-43-42 18:55:00* Test Item Value Reference Range Interpretation [...] to perform high complexity tests.Specimen sent to [facility] and testing performed by Clinical Pathology [address] [place] [address] [phone] Director: Ashutosh Henao M.D.CLIA # 4 [id number] Health [facility] HospitalFluoroscopic procedure less than one hour uzivqmnz1494-09-04 15:59:00* Test Item Value Reference Range Interpretation Comments Lactic Acid Level (test code = Lactic Acid Level) 0.5 0.5- 2.0 [facility] HospitalFluoroscopic procedure less than one hour mtfbmslh4996-07-01 15:59:00* Test Item Value Reference Range Interpretation Comments Lactic Acid Level (test code = Lactic Acid Level) 0.5 0.5- 2.0 [facility] HospitalCHEST SINGLE (PORTABLE)2019-11-12 15:15:00 [place] [address] Patient Name: GEOVANNA MCGARRY MR #: [id number] : 1955 Age/Sex: 64/F Req #: [id number] Adm Physician: Ordered by: ARMAND REID [employer] WORKER Report #: [id number] Location: ER Room/Bed: Procedure: [id number] DX/CHEST S HARMONY (PORTABLE) Exam Date: 11/12/19 [...] DOHERTY MD 14 Transcribed By: EILEEN on 11/12/19 1515 COPY TO: ARMAND REID [employer] FE[employer] WORKER Blood yurddcc9977-12-11 14:38:00* Test Item Value Reference Range Interpretation Comments Blood Culture (test code = 94085117) NO GROWTH AFTER 5 DAYS, FINAL REPORT [facility] HospitalBlood wttatne3110-13-28 14:38:00* Test Item Value Reference Range Interpretation Comments Blood Culture (test code = 99306949) NO GROWTH AFTER 5 DAYS, FINAL REPORT [facility] HospitalProthrombin time (PT) in platelet poor plasma by coagulation pqxsr2385-42-30 14:15:00* Test Item Value Reference Range Interpretation Comments Prothrombin Time (test code = 5902-2) 12.2 11.9-14.5 [facility] HospitalINR in Platelet poor plasma by Coagulation txeex4232-19-87 14:15:00* Test Item Value Reference Range Interpretation Comments Prothromb Time International Ratio (test code = 6301-6) 0.86 Oral Anticoagulant Therapy INR Values:1. Low Intensity Therapy 1.5 - 2.02 . Moderate Intensity Therapy 2.0 - 3.03. High Intensity Therapy(1) 2.5 - 3. 54. High Intensity Therapy(2) 3.0 - 4.05. Panic Value INR > 5.0 [facility] HospitalActivated partial thromboplastin time (aPTT) in platelet poor plasma by coagulation xwffx6161-69-44 14:15:00* Test Item Value Reference Range Interpretation Comments Activated Partial Thromboplast Time (test code = 08500-1) 24.4 23.8-35.5 [facility] HospitalProthrombin time (PT) in platelet poor plasma by coagulation cdtlb8128-30-21 14:15:00* Test Item Value Reference Range Interpretation Comments Prothrombin Time (test code = 5902-2) 12.2 11.9-14.5 [facility] HospitalINR in Platelet poor plasma by Coagulation jdfir7361-19-57 14:15:00* Test Item Value Reference Range Interpretation Comments Prothromb Time International Ratio (test code = 6301-6) 0.86 Oral Anticoagulant Therapy INR Values:1. Low Intensity Therapy 1.5 - 2.02 . Moderate Intensity Therapy 2.0 - 3.03. High Intensity Therapy(1) 2.5 - 3. 54. High Intensity Therapy(2) 3.0 - 4.05. Panic Value INR > 5.0 [facility] HospitalActivated partial thromboplastin time (aPTT) in platelet poor plasma by coagulation stbbi4494-19-33 14:15:00* Test Item Value Reference Range Interpretation Comments Activated Partial Thromboplast Time (test code = 89488-2) 24.4 23.8-35.5 [facility] HospitalBlood Uqnngls8648-54-18 18:38:00* Test Item Value Reference Range Interpretation Comments Blood Culture (test code = 59506968) NO GROWTH AFTER 72 HOURS [facility] Centerodium Netfx0234-30-50 06:22:00* Test Item Value Reference Range Interpretation Comments Sodium Level (test code = 2951-2) 140 136-145 [facility] HospitalPotassium Fuoyv9092-01-26 06:22:00* Test Item Value Reference Range Interpretation Comments Potassium Level (test code = 2823-3) 4.5 3.5-5.1 [facility] HospitalChloride Rfbrd3679-53-96 06:22:00* Test Item Value Reference Range Interpretation Comments Chloride Level (test code = 2075-0) 105 98-107 [facility] HospitalCarbon Dioxide Qaamg5346-26-07 06:22:00* Test Item Value Reference Range Interpretation Comments Carbon Dioxide Level (test code = 2028-9) 29 22-29 [facility] HospitalAnion Mbi1889-33-24 06:22:00* Test Item Value Reference Range Interpretation Comments Anion Gap (test code = 57561-9) 10.5 8-16 [facility] HospitalBlood Urea Thfwjhfl3505-09-88 06:22:00* Test Item Value Reference Range Interpretation Comments Blood Urea Nitrogen (test code = 3094-0) 19 7-26 [facility] HospitalCreatinine2020-02-06 06:22:00* Test Item Value Reference Range Interpretation Comments Creatinine (test code = 2160-0) 0.69 0.57-1.11 [facility] HospitalBUN/Creatinine Thlyo7220-69-62 06:22:00* Test Item Value Reference Range Interpretation Comments BUN/Creatinine Ratio (test code = 3097-3) 28 6-25 H [facility] HospitalEstimat Glomerular Filtration Rate 2019-08-13 06:22:00* Test Item Value Reference Range Interpretation Comments Estimat Glomerular Filtration Rate (test code = 633911745) > 60 >60 Ranges were taken from the National Kidney Disease Education Program and the [facility] Kid[facility] Foundation literature.Reference ranges:60 or greater: Pajhyt55-92 ( for 3 consecutive months): Chronic kidney disease 15 or less: Kidney failureTexas Health Arlington Memorial HospitalGlucose Jmzxz0786-72-75 06:22:00* Test Item Value Reference Range Interpretation Comments Glucose Level (test code = BEP5816) 136 74-118 H [facility] HospitalCalcium Dyttx3820-19-05 06:22:00* Test Item Value Reference Range Interpretation Comments Calcium Level (test code = 27138-5) 8.2 8.4-10.2 L [facility] HospitalWhite Blood Sqxvv7062-38-17 06:07:00* Test Item Value Reference Range Interpretation Comments White Blood Count (test code = 6690-2) 12.68 4.8-10.8 H [facility] HospitalRed Blood Itzge1022-24-97 06:07:00* Test Item Value Reference Range Interpretation Comments Red Blood Count (test code = 789-8) 3.55 3.6-5.1 L [facility] HospitalHemoglobin2020-02-06 06:07:00* Test Item Value Reference Range Interpretation Comments Hemoglobin (test code = 21042-0) 10.8 12.0-16.0 L [facility] HospitalHematocrit2020-02-06 06:07:00* Test Item Value Reference Range Interpretation Comments Hematocrit (test code = 4544-3) 33.0 34.2-44.1 L [facility] HospitalMean Corpuscular Azymly6902-11-21 06:07:00* Test Item Value Reference Range Interpretation Comments Mean Corpuscular Volume (test code = 787-2) 93.0 81-99 [facility] HospitalMean Corpuscular Cbkgmbsuiz0796-33-04 06:07:00* Test Item Value Reference Range Interpretation Comments Mean Corpuscular Hemoglobin (test code = 785-6) 30.4 28-32 [facility] HospitalMean Corpuscular Hemoglobin Concent 2019-08-13 06:07:00* Test Item Value Reference Range Interpretation Comments Mean Corpuscular Hemoglobin Concent (test code = 786-4) 32.7 31-35 [facility] HospitalRed Cell Distribution Tvgbh3952-04-02 06:07:00* Test Item Value Reference Range Interpretation Comments Red Cell Distribution Width (test code = 08553-2) 12.7 11.7 -14.4 [facility] HospitalPlatelet Jdide0712-29-23 06:07:00* Test Item Value Reference Range Interpretation Comments Platelet Count (test code = 777-3) 257 140-360 [facility] HospitalCreatine Kinase DV9692-84-53 14:20:00* Test Item Value Reference Range Interpretation Comments Creatine Kinase MB (test code = 67457-4) 12.60 0-5.0 H [facility] HospitalTroponin U6970-69-22 14:20:00* Test Item Value Reference Range Interpretation Comments Troponin I (test code = BKX7287) < 0.001 0-0.300 [facility] HospitalCreatine Pufbgj2297-84-87 14:11:00* Test Item Value Reference Range Interpretation Comments Creatine Kinase (test code = 2157-6) 222 29-168 H [facility] HospitalNeutrophils # (Auto)2019-08-11 09:24:00* Test Item Value Reference Range Interpretation Comments Neutrophils # (Auto) (test code = 751-8) 17.2 2.1-6.9 H [facility] HospitalLymphocytes # (Auto)2019-08-11 09:24:00* Test Item Value Reference Range Interpretation Comments Lymphocytes # (Auto) (test code = 15054-2) 0.9 1.0-3.2 L [facility] HospitalMonocytes # (Auto)2019-08-11 09:24:00* Test Item Value Reference Range Interpretation Comments Monocytes # (Auto) (test code = 742-7) 0.2 0.2-0.8 [facility] HospitalEosinophils # (Auto)2019-08-11 09:24:00* Test Item Value Reference Range Interpretation Comments Eosinophils # (Auto) (test code = 711-2) 0.0 0.0-0.4 [facility] HospitalBasophils # (Auto)2019-08-11 09:24:00* Test Item Value Reference Range Interpretation Comments Basophils # (Auto) (test code = 704-7) 0.0 0.0-0.1 [facility] HospitalAbsolute Immature Granulocyte (auto 2019-08-11 09:24:00* Test Item Value Reference Range Interpretation Comments Absolute Immature Granulocyte (auto (jorge t code = Absolute Immature Granulocyte (auto) 0.08 0-0.1 [facility] HospitalNeutrophils (%) (Auto)2019-08-11 08:00:00 * Test Item Value Reference Range Interpretation Comments Neutrophils (%) (Auto) (test code = 34726-0) 93.4 38.7-80.0 H [facility] HospitalLymphocytes (%) (Auto)2019-08-11 08:00:00 * Test Item Value Reference Range Interpretation Comments Lymphocytes (%) (Auto) (test code = 736-9) 4.8 18.0-39.1 L [facility] HospitalMonocytes (%) (Auto)2019-08-11 08:00:00* Test Item Value Reference Range Interpretation Comments Monocytes (%) (Auto) (test code = 5905-5) 1.3 4.4-11.3 L [facility] HospitalEosinophils (%) (Auto)2019-08-11 08:00:00 * Test Item Value Reference Range Interpretation Comments Eosinophils (%) (Auto) (test code = 713-8) 0.0 0.0-6.0 [facility] HospitalBasophils (%) (Auto)2019-08-11 08:00:00* Test Item Value Reference Range Interpretation Comments Basophils (%) (Auto) (test code = 706-2) 0.1 0.0-1.0 [facility] HospitalIM GRANULOCYTES %2019-08-11 08:00:00* Test Item Value Reference Range Interpretation Comments IM GRANULOCYTES % (test code = IM GRANULOCYTES %) 0.4 0.0- 1.0 [facility] HospitalUrine GDE9788-60-84 21:47:00* Test Item Value Reference Range Interpretation Comments Urine WBC (test code = 5821-4) NONE 0-5 [facility] HospitalUrine YFQ9655-78-94 21:47:00* Test Item Value Reference Range Interpretation Comments Urine RBC (test code = 37840-9) NONE 0-5 [facility] HospitalUrine Cizplwyg8801-58-23 21:47:00* Test Item Value Reference Range Interpretation Comments Urine Bacteria (test code = 60295-2) NONE NONE [facility] HospitalUrine Epithelial Fmvii8257-73-51 21:47:00 * Test Item Value Reference Range Interpretation Comments Urine Epithelial Cells (test code = 12179-8) NONE NONE [facility] HospitalUrine Nwtib1246-25-25 21:25:00* Test Item Value Reference Range Interpretation Comments Urine Color (test code = 5778-6) YELLOW YELLOW [facility] HospitalUrine Tcwngmd7440-43-29 21:25:00* Test Item Value Reference Range Interpretation Comments Urine Clarity (test code = 33081-4) SL CLOUDY CLEAR [facility] [place] Specific Vqgvsmp4410-83-64 21:25:00 * Test Item Value Reference Range Interpretation Comments Urine Specific [place] (test code = 5811-5) 1.020 1.010-1.02 5 [facility] HospitalUrine vZ7621-14-35 21:25:00* Test Item Value Reference Range Interpretation Comments Urine pH (test code = 60714-7) 6 5-7 [facility] HospitalUrine Leukocyte Kteprhxu2408-25-78 21:25:00* Test Item Value Reference Range Interpretation Comments Urine Leukocyte Esterase (test code = 5799-2) NEGATIVE NEGATIVE [facility] HospitalUrine Twemueh9168-09-71 21:25:00* Test Item Value Reference Range Interpretation Comments Urine Nitrite (test code = 88254-7) NEGATIVE NEGATIVE [facility] HospitalUrine Upkflwk5604-37-42 21:25:00* Test Item Value Reference Range Interpretation Comments Urine Protein (test code = 5804-0) 1+ NEGATIVE H [facility] HospitalUrine Glucose (UA)2019-08-10 21:25:00* Test Item Value Reference Range Interpretation Comments Urine Glucose (UA) (test code = 2349-9) NEGATIVE NEGATIVE [facility] HospitalUrine Tvmgilg1137-91-81 21:25:00* Test Item Value Reference Range Interpretation Comments Urine Ketones (test code = 05361-1) NEGATIVE NEGATIVE [facility] HospitalUrine Rxnwmpdnfkhl3320-20-55 21:25:00* Test Item Value Reference Range Interpretation Comments Urine Urobilinogen (test code = 69082-2) 2 0.2-1 [facility] HospitalUrine Nczcajyyb3594-84-79 21:25:00* Test Item Value Reference Range Interpretation Comments Urine Bilirubin (test code = 1978-6) NEGATIVE NEGATIVE [facility] HospitalUrine Wowey4442-26-96 21:25:00* Test Item Value Reference Range Interpretation Comments Urine Blood (test code = 79448-2) NEGATIVE NEGATIVE [facility] HospitalInfluenza Virus Types A,B Antigen 2019-08-10 20:06:00* Test Item Value Reference Range Interpretation Comments Influenza Virus Types A,B Antigen (test code = 93887-3) NEGATIVE NEGATIVE [facility] HospitalB-Type Natriuretic Kwbqcxy9302-36-77 19:23:00* Test Item Value Reference Range Interpretation Comments B-Type Natriuretic Peptide (test code = 68458-1) < 10.0 0-100 [facility] HospitalCHEST SINGLE (PORTABLE)2019-08-10 19:13:00 [facility] [address] [place] [address] Patient Name: GEOVANNA MCGARRY MR #: [id number] : 1955 Age/Sex: 63/F Req #: [id number] Adm Physician: Ordered by: HERNAN BADILLO MD Report #: [id number] Location: ER Room/Bed: Procedure: [id number] D X/CHEST SINGLE (PORTABLE) Exam Date: 08/10/19 [...] COPY TO: HERNAN BREWER MD Lactic Acid Iijgg1289-74-95 19:10:00* Test Item Value Reference Range Interpretation Comments Lactic Acid Level (test code = Lactic Acid Level) 1.1 0.5- 2.0 [facility] HospitalMagnesium Bjdfb4203-68-46 19:09:00* Test Item Value Reference Range Interpretation Comments Magnesium Level (test code = 82262-2) 1.8 1.3-2.1 [facility] HospitalTotal Uvjzwmqxc9588-47-07 19:09:00* Test Item Value Reference Range Interpretation Comments Total Bilirubin (test code = 1975-2) 0.6 0.2-1.2 [facility] HospitalAspartate Amino Transf (AST/SGOT) 2019-08-10 19:09:00* Test Item Value Reference Range Interpretation Comments Aspartate Amino Transf (AST/SGOT) (test code = Aspartate Amino Transf (AST/SGOT)) 33 5-34 [facility] HospitalAlanine Aminotransferase (ALT/SGPT) 2019-08-10 19:09:00* Test Item Value Reference Range Interpretation Comments Alanine Aminotransferase (ALT/SGPT) (test code = 1742-6) 40 0-55 [facility] HospitalTotal Yqfjcfl6945-22-26 19:09:00* Test Item Value Reference Range Interpretation Comments Total Protein (test code = 2885-2) 7.5 6.5-8.1 [facility] HospitalAlbumin2020-02-03 19:09:00* Test Item Value Reference Range Interpretation Comments Albumin (test code = 1751-7) 3.6 3.5-5.0 [facility] HospitalGlobulin2020-02-03 19:09:00* Test Item Value Reference Range Interpretation Comments Globulin (test code = 61116-5) 3.9 2.3-3.5 H [facility] HospitalAlbumin/Globulin Ysthu0713-35-63 19:09:00 * Test Item Value Reference Range Interpretation Comments Albumin/Globulin Ratio (test code = 1759-0) 0.9 0.8-2.0 [facility] HospitalAlkaline Dptbjdjqqki9176-65-40 19:09:00* Test Item Value Reference Range Interpretation Comments Alkaline Phosphatase (test code = 6768-6) 91 40-150 [facility] HospitalProthrombin Unpx4421-13-06 19:05:00* Test Item Value Reference Range Interpretation Comments Prothrombin Time (test code = 5902-2) 13.4 11.9-14.5 [facility] HospitalProthromb Time International Ratio 2019-08-10 19:05:00* Test Item Value Reference Range Interpretation Comments Prothromb Time International Ratio (test code = 6301-6) 1.00 Oral Anticoagulant Therapy INR Values:1. Low Intensity Therapy 1.5 - 2.02 . Moderate Intensity Therapy 2.0 - 3.03. High Intensity Therapy(1) 2.5 - 3. 54. High Intensity Therapy(2) 3.0 - 4.05. Panic Value INR > 5.0 [facility] HospitalActivated Partial Thromboplast Time 2019-08-10 19:05:00* Test Item Value Reference Range Interpretation Comments Activated Partial Thromboplast Time (test code = 06198-1) 28.6 23.8-35.5 [facility] HospitalInfluenza virus A and B antigen identification by fnxautjrqujqdpctkl0970-84-64 18:10:00* Test Item Value Reference Range Interpretation Comments Influenza Virus Types A,B Antigen (test code = 15204-7) NEGATIVE NEGATIVE [facility] HospitalInfluenza virus A and B antigen identification by mjeswnqsxquhpcziav4023-91-81 18:10:00* Test Item Value Reference Range Interpretation Comments Influenza Virus Types A,B Antigen (test code = 75252-7) NEGATIVE NEGATIVE [facility] Centererum or plasma magnesium measurement (mass/volume)2019-08-10 17:29:00* Test Item Value Reference Range Interpretation Comments Magnesium Level (test code = 12995-7) 1.8 1.3-2.1 [facility] Medical Centererum or plasma magnesium measurement (mass/volume)2019-08-10 17:29:00* Test Item Value Reference Range Interpretation Comments Magnesium Level (test code = 78789-3) 1.8 1.3-2.1 [facility]00 RUN DATE: 05/22/18 [facility] PAGE 1 RUN TIME: 1428 Specimen Inqui ry RUN USER: INTERFACE PATIENT: GEOVANNA MCGARRY FLOWER ACCT #: [id number] LOC: INDY U #: [id number] AGE/SX: 62/F ROOM: RE05/20/18REG DR: Bossman Bernal MD : 56 BED: DIS: [place] [facility] [place] SPEC #: [id number] RECD: 05/20/18 STATUS: GEMMA RERica #: [id number] HANG: 05/20/18 [facility] DR: Bossman Bernal MD ENTERED: 05/20/18 SP TYPE: POLYP OTHR DR: Lily Downs MDORDERED: GROSS COPIES TO: Lily Stevens MD [address] [place] [address] Bossman Bernal MD [address] [place] [address] PROCEDURES: GROSS (05/21/18-1335) TISSUES: 1. SIGMOID - POLYP HS BX 2. RE CTUM, NOS - POLYP HS BX x2 CLINICAL HISTORY COLLECTION DATE: 05/20/18 SCREENING, HISTORY OF COLON POLYPS FINAL DIAGNOSIS Sigmoid col on, polyp, biopsy: HYPERPLASTIC POLYP NEGATIVE FOR MALIGNANCY Rectum, polyp X2, biopsy: HYPERPLASTIC POLYPS NEGATIVE FOR MALIGNANCY CALVIN/[place] [id number] CONTINUED ON NEXT PAGE RUN DATE: 05/22/18 [facility] PAGE 2 RUN TIME: 1428 Specimen Inquiry RUN USER: INTERFACE SPEC #: [id number] PATIENT: GEOVANNA MCGARRY #[id number] (Continued) -- MACROSCOPIC The first specimen is [...] h, submitted as (2). GROSS PERFORMED AT [facility] [address] [place] [id number] (p)[phone] MICROSCOPIC MICROSCOPIC PERFORMED AT [facility] All of t he stains, including any controls performed, stain appropriately. [facility] [address] [place] [address] (p)[phone] PERFORMING SITE Diagnosis performed at: [facility] [address] [address] [phone] Signed SIGNATURE ON FILE Jennifer Ribera 05/22/18 1428 END OF REPORT
[2020-02-06] VITALS (8 sets, daily range): BP systolic 102–125; BP diastolic 51–75
[2020-02-06] MEDS: METHYLPREDNISOLONE SOD SUCC 40 MG/ML VIAL 1ML IV SCH ×3 (00:06→20:27)
[2020-02-06 00:08] LABS: ABG HCO3 51 mmol/L (22-26); ABG PCO2 94 mmHg (35-45); ABG PH 7.34 (7.35-7.45); ABG PO2 70 mmHg (80-105); ABG TCO2 50
[2020-02-06] MEDS: AZITHROMYCIN 500MG/NS 250 ML 250 ML IV SCH ×2 (00:08→23:43)
[2020-02-06] MEDS ORDERED: ONDANSETRON HCL INJ 2MG/ML 2ML 2 MG/ML VIAL IV STA (00:45)
--- NOTE | 2020-02-06 01:40 | NUR ---
Received pt. from ER via stretcher alert and oriented. Noted erythema underneath R breast and in her L groin.
[2020-02-06 02:34] LABS: ABG PCO2 99 mmHg (35-45); ABG PH 7.31 (7.35-7.45); ABG PO2 70 mmHg (80-105)
[2020-02-06 02:35] LABS: ABG HCO3 50 mmol/L (22-26); ABG TCO2 50
[2020-02-06] MEDS: ALBUTEROL/IPRATROPIUM 3 ML NEB NEB SCH ×6 (03:00→23:00)
[2020-02-06 05:15] LABS: ABG HCO3 53 mmol/L (22-26); ABG PCO2 99 mmHg (35-45); ABG PH 7.33 (7.35-7.45); ABG PO2 74 mmHg (80-105); ABG TCO2 50
[2020-02-06] MEDS: PIPER-TAZ 3.375 GM 50 ML IV SCH ×3 (06:10→22:23)
[2020-02-06 08:21] LABS: BASOPHILS % 0.2 % (0.0-1.0); HEMATOCRIT 41.6 % (34.2-44.1); HEMOGLOBIN 12.4 g/dL (12.0-16.0); LYMPHOCYTES % 8.2 % (18.0-39.1); MEAN CORPUSCULAR HEMOGLOBIN 28.3 pg (28-32); MEAN CORPUSCULAR HGB CONC 29.8 g/dL (31-35); MONOCYTES # (AUTO) 0.3 (0.2-0.8); MONOCYTES % 2.2 % (4.4-11.3); NEUTROPHILS # (AUTO) 10.4 (2.1-6.9); NEUTROPHILS % 89.1 % (38.7-80.0); PLATELET COUNT 203 x10e3/uL (140-360); RED BLOOD COUNT 4.38 x10e6/uL (3.6-5.1); RED CELL DISTRIBUTION WIDTH 12.3 % (11.7-14.4)
[2020-02-06 08:42] LABS: ANION GAP 14.8 mmol/L (8-16); BLOOD UREA NITROGEN 16 mg/dL (7-26); BUN/CREATININE RATIO 23 (6-25); CALCIUM 9.6 mg/dL (8.4-10.2); CHLORIDE 86 mmol/L (98-107); CREATININE, SERUM 0.69 mg/dL (0.57-1.11); EST GLOMERULAR FILTRATION RATE > 60 ML/MIN (60-); GLUCOSE 100 mg/dL (74-118); POTASSIUM 3.8 mmol/L (3.5-5.1); SODIUM 142 mmol/L (136-145)
[2020-02-06 08:59] LABS: CARBON DIOXIDE 45 mmol/L (22-29)
[2020-02-06 09:16] LABS: CREATINE KINASE MB 3.7 ng/mL (0-5.0)
[2020-02-06] MEDS: THEOPHYLLINE 300 MG TABSR PO SCH (13:12)
--- NOTE | 2020-02-06 15:04 | Progress Note ---
DATE: 02/06/2020 CHIEF COMPLAINT/HISTORY OF PRESENT ILLNESS: This is a 64-year-old white woman, whose primary treating diagnosis is COPD exacerbation. The patient states that she is on continuous supplemental oxygen at home at 4 L a minute. The patient states she is still short of breath. She also complains of worsening tremors. The patient complains of subjective fevers, but denies any shaking chills[place] [address] [place] 89% segmented neutrophils. The patient's COVID-19 test by PCR is still pending. The patient's serum bicarbonate is 45, which is quite elevated. The patient had a chest film on admission yesterday, which revealed possible hazy densities at the bibasilar area. The patient states she has not been exposed to anyone with confirmed COVID-19 infection. The patient states she quit smoking tobacco a week ago. REVIEW OF SYSTEMS: As per HPI. PHYSICAL EXAMINATION: GENERAL: She is awake, alert. She appears to be dyspneic, but does not appear to be in any acute respiratory distress. She is very pleasant and cooperative on exam. VITAL SIGNS: Height 5 feet 4 inches, weight 188 pounds, BMI 32. Blood pressure is 100/50, heart rate is 110, respiratory rate is 26, oxygen saturation 99% on 4 L oxygen, temperature is 99.3. INTEGUMENT: Skin is warm and dry. No pallor, jaundice, or diaphoresis. HEENT: Anicteric sclerae. Moist mucous membranes. NECK: Supple. No evidence of jugular venous distention. CARDIOVASCULAR: Tachycardic rate, regular rhythm. LUNGS: The patient has diminished breath sounds at the bases as well as crackles bilaterally. ABDOMEN: Obese, benign. EXTREMITIES: No edema or deformity. NEUROLOGIC: Intact. DIAGNOSES: 1. Bilateral pneumonia, likely. 2. Coronavirus disease-19 infection, likely. 3. Severe chronic obstructive pulmonary disease. 4. Tobacco abuse. 5. Supplemental oxygen dependent. PLAN: 1. Highly recommend tobacco cessation. 2. We will follow COVID-19 test. 3. Order two-view chest x-ray. 4. Continue intravenous Zosyn for patient's pneumonia. 5. Continue intravenous azithromycin for patient's pneumonia and likely COVID-19 infection. 6. We will increase supplemental oxygen to 6 L a minute. TIME SPENT: I spent 30 minutes in the care of this patient. MD SEBLE Nicholas/MAGALI /[id number]
[2020-02-06] MEDS: VENLAFAXINE HCL 75 MG CAPCR PO SCH (16:20)
--- NOTE | 2020-02-06 16:20 | Consultation ---
DATE OF CONSULTATION: Pulmonary Consultation. The patient of Dr. Shrestha HISTORY OF PRESENT ILLNESS: Charming, but unfortunate 64-year-old woman admitted with shortness of breath, respiratory failure, hypertension, long history of COPD on home oxygen. Apparently, she was not on oxygen when EMS arrived. She was hypoxic and was complaining to difficulty navigating at all, was shaky and has trouble walking for the last two days. Cough, has not productive of clear sputum. Has low-grade fever at 99. She has chronic back ache. She has had gallbladder surgery and hysterectomy. According to record, her medications include albuterol, amlodipine, Cymbalta, fenofibrate, Lamictal, Myrbetriq, Prilosec, Phenergan, Seroquel, Imitrex p.r.n., and Effexor. Smoker, quit 2 months ago, smoked for 49 years as many as 2 packs. She requests full measures. She has been intubated and extubated in the past. PHYSICAL EXAMINATION: VITAL SIGNS: Temperature 97.5, pulse 108, blood pressure 112/75. HEAD: Normocephalic and atraumatic. EYES: Extraocular movements intact. LUNGS: Diminished breath sounds. HEART: Regular rate and rhythm. ABDOMEN: Nontender. EXTREMITIES: Nonedematous. IMPRESSION: CO2 narcosis, admitted with PaCO2 of 102, pH 7.31, PO2 of 93. PLAN: Improved respiratory drive, BiPAP as needed, trial of Diamox and Theophylline. Continue inhaled bronchodilators. Moderate dose corticosteroids. Thank you for this kind referral. MD ROBERT Varma/MODL /[id number]
[2020-02-06 18:43] LABS: CREATINE KINASE 86 IU/L (29-168)
[2020-02-06] MEDS: BUDESONIDE/FORMOTEROL 160/4.5MCG INHALER INH SCH (19:45)
--- NOTE | 2020-02-06 19:55 | Consultation ---
DATE OF CONSULTATION: REASON FOR CONSULTATION: Shortness of breath. HISTORY OF PRESENT ILLNESS: Ms. De La Cruz is a 64-year-old white female who has history of COPD on 4 L oxygen at home, obesity, respiratory failure, hypertension, comes in with shortness of breath worse in the last 10 days. No fever. No chills. No cough. She does have history of neuropathy. PAST SURGICAL HISTORY: Cholecystectomy, hysterectomy. ALLERGIES: NKA. SOCIAL HISTORY: There is no smoking, drug abuse, or alcohol abuse. She used to smoke for 49 years, but quit two months ago. REVIEW OF SYSTEMS: She is just short of breath. There is no fever and no chills. Her cough is chronic and dry. She says she have some production now. LABORATORY DATA: White count 11.3. Her sodium 142, potassium 4.8, and creatinine 0.69. MEDICATIONS: Her medication list is reviewed. She is currently on Effexor, theophylline, Zosyn, azithromycin, methylprednisolone and Solu-Medrol. PHYSICAL EXAMINATION: GENERAL: She is currently alert, oriented. VITAL SIGNS: Stable. Currently afebrile. HEENT: She is not icteric. NECK: Supple. CHEST: Few crackles. HEART: S1, S2. No murmur. ABDOMEN: Soft. IMPRESSION: 1. Respiratory failure, concerned about superimposed bacterial pneumonia. Agree with cultures, antibiotics. Agree with steroids. 2. Chronic obstructive pulmonary disease. 3. Further recommendations to follow and discuss with the medical team. We will follow. MD ESTEPHANIE Murdock/MAGALI /[id number]
[2020-02-07] VITALS (13 sets, daily range): BP systolic 112–142; BP diastolic 60–87
[2020-02-07] MEDS: ALBUTEROL/IPRATROPIUM 3 ML NEB NEB SCH ×6 (03:00→23:00)
[2020-02-07] MEDS: PIPER-TAZ 3.375 GM 50 ML IV SCH ×3 (06:13→22:10)
[2020-02-07] MEDS: BUDESONIDE/FORMOTEROL 160/4.5MCG INHALER INH SCH ×2 (07:03→21:10)
--- NOTE | 2020-02-07 07:33 | Diagnostic Imaging Report ---
EXAMINATION: CHEST 2 VIEWS INDICATION: Bibasilar pneumonia. COMPARISON: 02/05/2020. FINDINGS: TUBES and LINES: None. LUNGS: Normal lung volumes. Hazy opacities at the bilateral lung bases are not significantly changed. PLEURA: No pleural effusion or pneumothorax. HEART AND MEDIASTINUM: The cardiomediastinal silhouette is unremarkable. BONES AND SOFT TISSUES: No acute osseous lesion. Chronic compression fracture of the thoracic spine. Soft tissues are unremarkable. UPPER ABDOMEN: No free air under the diaphragm. IMPRESSION: No focal consolidation, pleural effusion or pneumothorax. Hazy opacities at the bilateral lung bases likely related to breast prosthesis. Signed by: Eugenio Hamilton MD on 02/07/2020 7:28 AM
[2020-02-07 08:04] LABS: BASOPHILS % 0.1 % (0.0-1.0); EOSINOPHILS % 0.2 % (0.0-6.0); HEMATOCRIT 38.4 % (34.2-44.1); HEMOGLOBIN 11.8 g/dL (12.0-16.0); LYMPHOCYTES # (AUTO) 2.8 (1.0-3.2); LYMPHOCYTES % 27.1 % (18.0-39.1); MEAN CORPUSCULAR HEMOGLOBIN 28.6 pg (28-32); MEAN CORPUSCULAR HGB CONC 30.7 g/dL (31-35); MONOCYTES # (AUTO) 0.8 (0.2-0.8); NEUTROPHILS # (AUTO) 6.6 (2.1-6.9); NEUTROPHILS % 64.2 % (38.7-80.0); PLATELET COUNT 183 x10e3/uL (140-360); RED BLOOD COUNT 4.13 x10e6/uL (3.6-5.1); RED CELL DISTRIBUTION WIDTH 12.3 % (11.7-14.4)
[2020-02-07 08:26] LABS: ALANINE AMINOTRANSFERASE 13 IU/L (0-55); ALBUMIN 3.2 g/dL (3.5-5.0); ALBUMIN/GLOBULIN RATIO 1.1 (0.8-2.0); ALKALINE PHOSPHATASE 117 IU/L (40-150); ANION GAP 11.5 mmol/L (8-16); BLOOD UREA NITROGEN 20 mg/dL (7-26); BUN/CREATININE RATIO 32 (6-25); CALCIUM 9.1 mg/dL (8.4-10.2); CHLORIDE 90 mmol/L (98-107); CREATININE, SERUM 0.62 mg/dL (0.57-1.11); EST GLOMERULAR FILTRATION RATE > 60 ML/MIN (60-); GLUCOSE 78 mg/dL (74-118); POTASSIUM 3.5 mmol/L (3.5-5.1); SODIUM 142 mmol/L (136-145)
[2020-02-07 08:27] LABS: CARBON DIOXIDE 44 mmol/L (22-29)
--- NOTE | 2020-02-07 08:38 | NUR ---
Paged pulmonology through computer information science professor service to report critical CO2 wating for call back
[2020-02-07] MEDS: DULOXETINE HCL 30 MG DELAYED RELEASE PO SCH (09:34)
[2020-02-07] MEDS: PANTOPRAZOLE SOD 40 MG TABEC PO SCH (09:34)
[2020-02-07] MEDS: FENOFIBRATE 145 MG TAB PO SCH (09:34)
[2020-02-07] MEDS: LAMOTRIGINE 100 MG TAB PO SCH (09:35)
[2020-02-07] MEDS: METHYLPREDNISOLONE SOD SUCC 40 MG/ML VIAL 1ML IV SCH ×2 (09:36→19:46)
[2020-02-07] MEDS: VENLAFAXINE HCL 75 MG CAPCR PO SCH ×2 (09:36→16:44)
[2020-02-07] MEDS: ACETAZOLAMIDE 250 MG TAB PO SCH (09:40)
--- NOTE | 2020-02-07 10:00 | NUR ---
Dr. Bautista, returned call made aware of 44 CO2 no new orders received.
[2020-02-07] MEDS ORDERED: POTASSIUM CHLORIDE 10MEQ EA PO ONE (10:30)
--- NOTE | 2020-02-07 11:12 | Progress Note ---
DATE: 02/07/2020 CHIEF COMPLAINT/HISTORY OF PRESENT ILLNESS: This 64-year-old white woman, whose primary treating diagnosis is bilateral pneumonia with likely Coronavirus-19 infection. Her initial chronic virus test was negative. Thus, a repeat was sent early this morning. The patient states her shortness of breath is slightly improved. She has a chronic cough, but she suffers from COPD. The patient states that she still smokes tobacco. The patient states she wears supplemental oxygen at home at 4 L a minute continuously. The patient underwent a chest x-ray yesterday February 06, 2020, that the radiologist interpreted as hazy opacities in the lung bases, likely secondary to breast prosthesis. The patient had a chest film done this morning, but the result is still pending. LAB WORK: Blood chemistries today revealed potassium 3.5, and serum bicarbonate 44. The patient's complete blood count was unremarkable. REVIEW OF SYSTEMS: As per HPI. PHYSICAL EXAMINATION: GENERAL: She is awake. She is alert. She does not appear to be any acute respiratory distress. She does appear to have chronic dyspnea and is currently wearing supplemental oxygen. VITAL SIGNS: Height 5 feet 4 inches, weight 180 pounds, BMI 32. Blood pressure is 118/60, pulse 102, respiratory rate 24, oxygen saturation 98% on 4 L of oxygen, and temperature 98.9. INTEGUMENT: Skin is warm and dry. No pallor, jaundice, or diaphoresis. HEENT: Anterior sclerae with moist mucous membranes. NECK: Supple. CARDIOVASCULAR: Distant heart sounds. Tachycardic rate and rhythm. LUNGS: The patient has diminished breath sounds at the bases as well as crackles bilaterally. ABDOMEN: Obese, benign. EXTREMITIES: No deformity. NEURO: Intact. DIAGNOSES: 1. Bilateral pneumonia, likely. 2. Severe chronic obstructive pulmonary disease. 3. Tobacco abuse. 4. Supplemental oxygen dependent. PLAN: 1. Agree with repeating COVID-19 test. 2. Highly recommend tobacco cessation. 3. Review chest x-ray was done, that was performed this morning. 4. Continue intravenous Zosyn and azithromycin for patient's pneumonia. 5. Continue supplemental oxygen. TIME SPENT: I spent 25 minutes in the care of this patient. MD SEBLE Nicholas/MAGALI Spring: 02/07/2020 10:25:54 /[id number] HERRERA
[2020-02-07] MEDS: THEOPHYLLINE 300 MG TABSR PO SCH (11:55)
--- NOTE | 2020-02-07 13:28 | NUR ---
INFECTIOUS DISEASE PROGRESS NOTE DR HAAS HISTORY OF PRESENT ILLNESS: Ms. De La Cruz is a 64-year-old white female who has history of COPD on 4 L oxygen at home, obesity, respiratory failure, hypertension, comes in with shortness of breath worse in the last 10 days. No fever. No chills. No cough. She does have history of neuropathy. ALLERGIES: NKA. REVIEW OF SYSTEMS: She is just short of breath. There is no fever and no chills. Her cough is chronic and dry. She says she have some production now. LABORATORY DATA: White count 11.3. Her sodium 142, potassium 4.8, and creatinine 0.69. MEDICATIONS: Her medication list is reviewed. She is currently on Effexor, theophylline, Zosyn, azithromycin, methylprednisolone and Solu-Medrol. PHYSICAL EXAMINATION: GENERAL: She is currently alert, oriented. VITAL SIGNS: Stable. Currently afebrile. HEENT: She is not icteric. NECK: Supple. CHEST: Few crackles. HEART: S1, S2. No murmur. ABDOMEN: Soft. IMPRESSION & PLAN: 1. Respiratory failure, concerned about superimposed bacterial pneumonia. Agree with cultures, antibiotics. Agree with steroids. 2. Chronic obstructive pulmonary disease. 3. Further recommendations to follow and discuss with the medical team. PT SEEN AND EXAMINED BY DR HAAS
--- NOTE | 2020-02-07 18:36 | NUR ---
Dr. Omalley called I received orders to transfer patient to COVID observation unit, Dr. Omalley made aware patient second COVID test still pending. Received orders to transfer patient to Covid obs unit.
--- NOTE | 2020-02-07 20:09 | NUR ---
Spoke with Dr Omalley clarification if want patient on tele or continuous pulse ox. No new orders: continue to transfer to [facility]
--- NOTE | 2020-02-07 20:45 | NUR ---
Report given to Millie CARRERA for room 184. RT called to move biapap to 184 from 187.
--- NOTE | 2020-02-07 20:50 | NUR ---
Patient transferred to room 184 in bed with mask in place. On 02 4L NC. All personal belongings transferred with patient. A&O x3. No issues or concerns noted. Nurse notified patient transferred to room.
--- NOTE | 2020-02-07 20:54 | NUR ---
Received the patient to room#184.aaox3.stable condition.bed locked and in lowest position.phone and call light within reach.instructed to call for assistance as needed.
--- NOTE | 2020-02-07 21:05 | NUR ---
Left message for son Yovani Tejada regarding room transfer. Left call back number and number to room.
--- NOTE | 2020-02-07 21:10 | NUR ---
Spoke with Spoused GIFTY De La Cruz regarding transfer to room 184 and spoke with son regarding transfer.
--- NOTE | 2020-02-07 22:11 | NUR ---
is in the unit to see the patient.pt is asking for seroquel po.ordered seroquel 25 mg hs prn started.assisted to use bed side commode.voided.
[2020-02-07] MEDS: QUETIAPINE FUMARATE 25 MG TAB PO PRN (23:45)
[2020-02-07] MEDS: AZITHROMYCIN 500MG/NS 250 ML 250 ML IV SCH (23:46)
[2020-02-08] VITALS (8 sets, daily range): BP systolic 113–138; BP diastolic 66–75
[2020-02-08] MEDS: ALBUTEROL/IPRATROPIUM 3 ML NEB NEB SCH ×6 (03:00→23:00)
[2020-02-08] MEDS: PIPER-TAZ 3.375 GM 50 ML IV SCH ×3 (05:43→21:25)
[2020-02-08 06:02] LABS: BASOPHILS % 0.2 % (0.0-1.0); HEMATOCRIT 40.5 % (34.2-44.1); HEMOGLOBIN 12.4 g/dL (12.0-16.0); LYMPHOCYTES # (AUTO) 1.9 (1.0-3.2); LYMPHOCYTES % 15.7 % (18.0-39.1); MEAN CORPUSCULAR HEMOGLOBIN 28.8 pg (28-32); MEAN CORPUSCULAR HGB CONC 30.6 g/dL (31-35); MEAN CORPUSCULAR VOLUME 94.2 fL (81-99); MONOCYTES # (AUTO) 0.9 (0.2-0.8); MONOCYTES % 7.3 % (4.4-11.3); NEUTROPHILS # (AUTO) 9.1 (2.1-6.9); NEUTROPHILS % 76.3 % (38.7-80.0); PLATELET COUNT 204 x10e3/uL (140-360); RED CELL DISTRIBUTION WIDTH 12.5 % (11.7-14.4)
[2020-02-08 06:32] LABS: ANION GAP 11.2 mmol/L (8-16); BLOOD UREA NITROGEN 14 mg/dL (7-26); BUN/CREATININE RATIO 20 (6-25); CARBON DIOXIDE 32 mmol/L (22-29); CHLORIDE 102 mmol/L (98-107); CREATININE, SERUM 0.69 mg/dL (0.57-1.11); EST GLOMERULAR FILTRATION RATE > 60 ML/MIN (60-); GLUCOSE 100 mg/dL (74-118); POTASSIUM 4.2 mmol/L (3.5-5.1); SODIUM 141 mmol/L (136-145)
--- NOTE | 2020-02-08 07:00 | NUR ---
Report given to oncoming rn.stable condition.
--- NOTE | 2020-02-08 07:00 | NUR ---
RECEIVED PATIENT RESTING NO S/S OF DISTRESS. BED LOW, WHEELS LOCKED, SIDE RAILS X2. CALL LIGHT IN REACH. WILL CONTINUE TO MONITOR PATIENT.
[2020-02-08] MEDS: FENOFIBRATE 145 MG TAB PO SCH (07:54)
[2020-02-08] MEDS: VENLAFAXINE HCL 75 MG CAPCR PO SCH ×2 (07:54→16:00)
[2020-02-08] MEDS: PANTOPRAZOLE SOD 40 MG TABEC PO SCH (07:54)
[2020-02-08] MEDS: LAMOTRIGINE 100 MG TAB PO SCH (07:54)
[2020-02-08] MEDS: METHYLPREDNISOLONE SOD SUCC 40 MG/ML VIAL 1ML IV SCH (07:54)
[2020-02-08] MEDS: DULOXETINE HCL 30 MG DELAYED RELEASE PO SCH (07:54)
[2020-02-08] MEDS: BUDESONIDE/FORMOTEROL 160/4.5MCG INHALER INH SCH ×2 (08:53→19:25)
[2020-02-08] MEDS: THEOPHYLLINE 300 MG TABSR PO SCH (11:07)
[2020-02-08] MEDS: ACETAZOLAMIDE 250 MG TAB PO SCH (11:14)
--- NOTE | 2020-02-08 11:52 | Progress Note ---
DATE: 02/08/2020 SUBJECTIVE: Ms. De La Cruz is a 64-year-old female with history of both tobacco use, COPD, and depression, who came to the emergency room complaining of a worsening of shortness of breath and cough. She is on oxygen at home. Chest x-ray showed hazy opacity of the lungs. She was started on antibiotics and IV steroids. In the COVID unit at present time, first COVID test came back negative, second test is pending. PHYSICAL EXAMINATION: GENERAL: She is awake. She is alert. VITAL SIGNS: Temperature is 98.1, blood pressure 138/72. The pulse is 93, respiratory rate is 20. She is on O2 nasal cannula 4 L/minute. The patient states she is feeling better compare with how she was feeling when she came. LABORATORY DATA: On the blood work, potassium 4.2, creatinine is 0.69, and glucose is 100. COVID first one is negative, second one is pending. The blood gas shows a pH of 7.33. CBC; white count is 11.93, hemoglobin 12.4, and hematocrit 40.5. Blood cultures growing Staph that may be contaminated. The second one, no growth. Chest x-ray done on the 1st shows no focal consolidation, pleural effusion, or pneumothorax, hazy opacities of the bilateral lung bases, likely related to breast prostheses. ASSESSMENT: 1. Bilateral pneumonia. 2. Consideration of cough, possible coronavirus disease. 3. Chronic obstructive pulmonary disease exacerbation. 4. Tobacco abuse. 5. Oxygen dependent. 6. Depression. PLAN: The plan at present time is to continue IV antibiotics. Continue on steroids and continue her Effexor, Cymbalta, and continue neb treatments. If second COVID test comes back negative, she can be transferred to regular floor. Continue the other home medications. All this was discussed with the patient. All questions were answered to satisfaction. MD MYLES Bass/MAGALI /[id number]
--- NOTE | 2020-02-08 14:41 | NUR ---
REPORT GIVEN TO HONORIO CARRERA. PATIENT TRANSFERRED TO ROOM 206 IN STABLE CONDITION.
--- NOTE | 2020-02-08 14:53 | NUR ---
PATIENT ARRIVED ON THE UNIT AT 1449 PER WHEELCHAIR FROM OBS RM 184. PATIENT IS AWAKE, ALERT, AND IN STABLE CONDITION WITH NO S/S OF RESPIRATORY DISTRESS. NO PAIN VOICED. 02 APPLIED AT 3L NC. IV ANTIBIOTIC INFUSING. CALL LIGHT IS WITHIN REACH OF PATIENT, PATIENT INSTRUCTED TO CALL FOR ASSISTANCE NEEDED.
[2020-02-08] MEDS: DOCUSATE SODIUM 100 MG CAP PO SCH (16:00)
--- NOTE | 2020-02-08 17:13 | NUR ---
NFECTIOUS DISEASE PROGRESS NOTE DR HAAS doing better HISTORY OF PRESENT ILLNESS: Ms. De La Cruz is a 64-year-old white female who has history of COPD on 4 L oxygen at home, obesity, respiratory failure, hypertension, comes in with shortness of breath worse in the last 10 days. No fever. No chills. No cough. She does have history of neuropathy. REVIEW OF SYSTEMS: She is just short of breath. There is no fever and no chills. Her cough is chronic and dry. She says she have some production now. LABORATORY DATA: White count 11.3. Her sodium 142, potassium 4.8, and creatinine 0.69. MEDICATIONS: Her medication list is reviewed. She is currently on Effexor, theophylline, Zosyn, azithromycin, methylprednisolone and Solu-Medrol. PHYSICAL EXAMINATION: GENERAL: She is currently alert, oriented. VITAL SIGNS: Stable. Currently afebrile. HEENT: She is not icteric. NECK: Supple. CHEST: Few crackles. HEART: S1, S2. No murmur. ABDOMEN: Soft. IMPRESSION & PLAN: 1. Respiratory failure, concerned about superimposed bacterial pneumonia. Agree with cultures, antibiotics. Agree with steroids. 2. Chronic obstructive pulmonary disease. cont same seems better
--- NOTE | 2020-02-08 19:23 | NUR ---
PATIENT IS IN STABLE CONDITION WITH NO S/S OF RESPIRATORY DISTRESS- NO PAIN VOICED. BED ALARM APPLIED. CALL LIGHT IS WITHIN REACH OF PATIENT- PATIENT INSTRUCTED TO CALL FOR ASSISTANCE NEEDED. BEDSIDE SHIFT REPORT GIVEN TO ONCOMING NURSE.
[2020-02-08] MEDS ORDERED: SODIUM CHLORIDE 0.9% 250ML 250 ML ONE (21:06)
[2020-02-08] MEDS: QUETIAPINE FUMARATE 25 MG TAB PO PRN (21:25)
--- NOTE | 2020-02-08 21:25 | NUR ---
PATIENT RESTING IN BED IN STABLE CONDITION, NO SIGNS OF RESPIRATORY DISTRESS NOTED. IV ANTIBIOTICS ARE RUNNING AT ORDERED RATE AND PATIENT VOICES NO PAIN AT THIS TIME. BED IS IN LOW POSITION, BOTH SIDE RAILS ARE UP, BED ALARM IS ON, CALL LIGHT IS WITHIN EASY REACH, WILL CONTINUE TO MONITOR.
--- NOTE | 2020-02-08 22:25 | Progress Note ---
DATE: Pulmonary Progress Note SUBJECTIVE: The patient's new test for coronavirus is negative. The patient is breathing better. PHYSICAL EXAMINATION: VITAL SIGNS: Temperature 98.7, pulse of 90, blood pressure 114/70, and O2 saturation 94% on 4 L. HEENT: Head, atraumatic and normocephalic. CHEST: Mildly reduced air entry. HEART: S1 and S2 audible. ABDOMEN: Soft. LABORATORY DATA: Reviewed. ASSESSMENT/PLAN: Zqosy-st-hwryufp hypoxic and hypercapnic respiratory failure. The patient's blood gas has improved, currently on oxygen. The patient is on 40 b.i.d. of Solu-Medrol. I will reduce the dose to 20 IV b.i.d. Diamox has been started because of chronic hypercapnic respiratory failure. IV antibiotics per ID recommendations. Oxygen as needed to keep the O2 saturation more than or equal to 92%. Continue inhaled bronchodilators. MD DIANA Herrera/MAGALI /[id number]
[2020-02-08] MEDS: AZITHROMYCIN 500MG/NS 250 ML 250 ML IV SCH (22:49)
[2020-02-09] VITALS (8 sets, daily range): BP systolic 107–125; BP diastolic 62–78
[2020-02-09] MEDS: ALBUTEROL/IPRATROPIUM 3 ML NEB NEB SCH ×6 (03:00→23:15)
[2020-02-09] MEDS: PIPER-TAZ 3.375 GM 50 ML IV SCH ×3 (06:30→21:35)
[2020-02-09] MEDS: METHYLPREDNISOLONE SOD SUCC 40 MG/ML VIAL 1ML IV SCH ×2 (06:30→19:32)
--- NOTE | 2020-02-09 07:10 | NUR ---
PATIENT IS AWAKE, ALERT, AND IN STABLE CONDITION WITH NO S/S OF RESPIRATORY DISTRESS. BED ALARM APPLIED. CALL LIGHT IS WITHIN REACH OF PATIENT, PATIENT INSTRUCTED TO CALL FOR ASSISTANCE NEEDED.
[2020-02-09] MEDS: BUDESONIDE/FORMOTEROL 160/4.5MCG INHALER INH SCH ×2 (08:05→19:10)
[2020-02-09] MEDS: ACETAMINOPHEN 325 MG TAB PO PRN ×2 (08:43→21:35)
[2020-02-09] MEDS: DULOXETINE HCL 30 MG DELAYED RELEASE PO SCH (08:44)
[2020-02-09] MEDS: DOCUSATE SODIUM 100 MG CAP PO SCH ×2 (08:44→16:02)
[2020-02-09] MEDS: VENLAFAXINE HCL 75 MG CAPCR PO SCH ×2 (08:44→16:02)
[2020-02-09] MEDS: PANTOPRAZOLE SOD 40 MG TABEC PO SCH (08:46)
[2020-02-09] MEDS: FENOFIBRATE 145 MG TAB PO SCH (08:46)
[2020-02-09] MEDS: LAMOTRIGINE 100 MG TAB PO SCH (08:46)
[2020-02-09] MEDS: THEOPHYLLINE 300 MG TABSR PO SCH (11:29)
--- NOTE | 2020-02-09 12:53 | Progress Note ---
DATE: 02/09/2020 SUBJECTIVE: Ms. De La Cruz is a 64-year-old female with history of tobacco use, COPD, and depression, came to the emergency room complaining of shortness of breath and cough. She is on oxygen at home. Chest x-ray showed bilateral hazy opacities. She was started on IV steroids, IV antibiotics and neb treatments. COVID testing x2 came back negative. PHYSICAL EXAMINATION: GENERAL: Today, she is awake and alert. She is feeling better. VITAL SIGNS: Temperature is 98.1 and blood pressure is 107/62. HEART: Regular rate. LUNGS: Bilateral wheezing. ABDOMEN: Distended and soft. LABORATORY DATA: On the blood work, white count 11.93, hemoglobin 12.4, hematocrit 40.5, potassium 4.2, and creatinine is 0.69. COVID testing twice was negative. Blood culture was no growth. The other one shows some stuff, that is probably contamination. ASSESSMENT: 1. Acute on chronic hypoxic respiratory failure. 2. Bilateral pneumonia. 3. Chronic obstructive pulmonary disease exacerbation. 4. Tobacco abuse. 5. Oxygen dependent. 6. Bipolar disorder. 7. Hypertension. PLAN: The plan at present time is to continue IV antibiotics. Continue IV steroids. The dose was decreased. Continue her Effexor and Cymbalta. Continue neb treatments. Continue other home medications. If she is stable, she may be able to go home tomorrow. I spent more than 35 minutes examining patient, reviewing overnight events, lab results, and discussing plan of care with her. MD MYLES Bass/MODL /[id number]
--- NOTE | 2020-02-09 19:14 | Progress Note ---
DATE: SUBJECTIVE: Ms. De La Cruz is doing well. Thre is no new complaint. PHYSICAL EXAMINATION: GENERAL: She is currently alert and oriented. VITAL SIGNS: Stable, afebrile. HEENT: She is not icteric. NECK: Supple. CHEST: Clear. HEART: S1, S2. ABDOMEN: Soft. IMPRESSION AND PLAN: Acute on chronic respiratory failure, doing well. Pneumonia, . From Infectious Disease point of view, she is on Zosyn, to finish 7 days of antibiotic. To wean steroid as tolerated and discontinue Zithromax. MD ESTEPHANIE Murdock/MAGALI /[id number]
--- NOTE | 2020-02-09 19:24 | NUR ---
PATIENT IS IN STABLE CONDITION WITH NO S/S OF RESPIRATORY DISTRESS- NO PAIN VOICED. BED ALARM APPLIED. CALL LIGHT IS WITHIN REACH, PATIENT INSTRUCTED TO CALL FOR ASSISTANCE NEEDED. BEDSIDE SHIFT REPORT GIVEN TO ONCOMING NURSE.
[2020-02-09] MEDS: QUETIAPINE FUMARATE 25 MG TAB PO PRN (21:35)
--- NOTE | 2020-02-09 21:35 | NUR ---
PATIENT RESTING IN BED IN STABLE CONDITION, NO SIGNS OF RESPIRATORY DISTRESS NOTED. IV ANTIBIOTICS ARE RUNNING AT ORDERED RATE AND PATIENT VOICES PAIN AT A LEVEL OF 5, WAS MEDICATED ORDERED. NASAL CANNULA IS INTACT AND RUNNING AT 3 LITERS. BED IS IN LOW POSITION, BOTH SIDE RAILS ARE UP, BED ALARM IS ON, CALL LIGHT IS WITHIN EASY REACH, WILL CONTINUE TO MONITOR.
[2020-02-09] MEDS: AZITHROMYCIN 500MG/NS 250 ML 250 ML IV SCH (22:56)
[2020-02-10] VITALS (9 sets, daily range): BP systolic 104–135; BP diastolic 52–71
[2020-02-10] MEDS: ALBUTEROL/IPRATROPIUM 3 ML NEB NEB SCH ×6 (03:55→23:00)
[2020-02-10] MEDS: PIPER-TAZ 3.375 GM 50 ML IV SCH ×3 (06:50→22:20)
[2020-02-10] MEDS: METHYLPREDNISOLONE SOD SUCC 40 MG/ML VIAL 1ML IV SCH ×3 (06:50→19:00)
[2020-02-10] MEDS: BUDESONIDE/FORMOTEROL 160/4.5MCG INHALER INH SCH ×2 (06:51→19:15)
[2020-02-10] MEDS: DULOXETINE HCL 30 MG DELAYED RELEASE PO SCH (09:30)
[2020-02-10] MEDS: DOCUSATE SODIUM 100 MG CAP PO SCH ×2 (09:30→17:20)
[2020-02-10] MEDS: VENLAFAXINE HCL 75 MG CAPCR PO SCH ×2 (09:30→17:20)
[2020-02-10] MEDS: FENOFIBRATE 145 MG TAB PO SCH (09:30)
[2020-02-10] MEDS: LAMOTRIGINE 100 MG TAB PO SCH (09:30)
[2020-02-10] MEDS: PANTOPRAZOLE SOD 40 MG TABEC PO SCH (09:30)
--- NOTE | 2020-02-10 11:03 | Progress Note ---
DATE: 02/10/2020 SUBJECTIVE: Ms. De La Cruz is a 64-year-old female with history of COPD, former tobacco use, depression, came to the emergency room with shortness of breath and cough. She had two COVID tests that came back negative. She is on oxygen at home. Chest x-ray showed bilateral opacities on both lungs. She was started on IV antibiotics and IV steroids as well as strict neb treatments. PHYSICAL EXAMINATION: GENERAL: Today, she is awake and alert. She is feeling much better. VITAL SIGNS: Temperature is 98.1, blood pressure 104/52. HEART: Regular rate. LUNGS: Clear to auscultation. ABDOMEN: Soft. LABORATORY DATA: Work white count is 11.93, hemoglobin 12.4, hematocrit 40.5. COVID test x2 negative. Potassium 4.2, creatinine is 0.69, glucose was 100. ASSESSMENT: 1. Acute on chronic hypoxic respiratory failure. 2. Bilateral pneumonia. 3. Chronic obstructive pulmonary disease exacerbation. 4. Tobacco abuse. 5. Oxygen dependent. 6. Bipolar disorder. 7. Hypertension. PLAN: At the present time is to continue IV antibiotics. The steroids to be tapered down. Continue Effexor and Cymbalta. Continue neb treatments. She needs to complete as per Dr. Pruett seven days of IV Zosyn. I spent more than 30 minutes examining patient, reviewing overnight event, lab results, and I discussed plan of care with her and probably discharged in 24-48 hours if she is stable. MD MYLES Bass/EDWARDL /[id number]
--- NOTE | 2020-02-10 11:03 | Progress Note ---
DATE: SUBJECTIVE: The patient is doing well, was admitted with hypercapnic respiratory failure, no distress, now doing well on 2 L, walking around in the room. COVID-19 was tested twice and it is negative. PHYSICAL EXAMINATION: VITAL SIGNS: Temperature 98.1, pulse of 97, blood pressure 104/52, respiratory rate of 18, O2 saturation 100% on 3 L. HEENT: Head atraumatic and normocephalic. CHEST: Clear to auscultation bilaterally. No wheezing. HEART: S1, S2 audible. ABDOMEN: Soft. NEUROLOGIC: Awake and alert. LABORATORY DATA: Reviewed. ASSESSMENT AND PLAN: A 64-year-old female with chronic hypercapnic respiratory failure and COPD. The patient has improved remarkably. Continue current treatment. The patient can be switched to p.o. steroids on discharge. Continue the nebulizer treatment on theophylline and Symbicort. MD DIANA Herrera/MAGALI /[id number]
--- NOTE | 2020-02-10 11:43 | NUR ---
health outcomes liaison visited with pt and health outcomes liaison provided hope building , counseling on fears and family issues, pt expressed hope and more peace . health outcomes liaison offered and provided scripture to read. pt expressed more peace and appreciation for health outcomes liaison visit chaplain Nohelia
[2020-02-10] MEDS: THEOPHYLLINE 300 MG TABSR PO SCH (12:48)
[2020-02-10] MEDS: QUETIAPINE FUMARATE 25 MG TAB PO PRN (20:00)
--- NOTE | 2020-02-10 20:00 | NUR ---
PATIENT RESTING IN BED IN STABLE CONDITION, NO SIGNS OF RESPIRATORY DISTRESS NOTED. NASAL CANNULA IS INTACT AND RUNNING AT 3 LITERS, PATIENT VOICES NO PAIN AT THIS TIME. BED IS IN LOW POSITION, BOTH SIDE RAILS ARE UP, BED ALARM IS ON, CALL LIGHT IS WITHIN EASY REACH, WILL CONTINUE TO MONITOR.
[2020-02-10] MEDS: AZITHROMYCIN 500MG/NS 250 ML 250 ML IV SCH (23:55)
[2020-02-11] MEDS: ALBUTEROL/IPRATROPIUM 3 ML NEB NEB SCH ×3 (02:30→10:37)
[2020-02-11 04:45] VITALS: BP 127/79
[2020-02-11] MEDS: PIPER-TAZ 3.375 GM 50 ML IV SCH (06:25)
[2020-02-11] MEDS: METHYLPREDNISOLONE SOD SUCC 40 MG/ML VIAL 1ML IV SCH (06:25)
[2020-02-11] MEDS: BUDESONIDE/FORMOTEROL 160/4.5MCG INHALER INH SCH (06:32)
[2020-02-11 08:00] VITALS: BP 122/64
[2020-02-11 08:23] VITALS: BP 122/64
[2020-02-11] MEDS: PANTOPRAZOLE SOD 40 MG TABEC PO SCH (09:24)
[2020-02-11] MEDS: VENLAFAXINE HCL 75 MG CAPCR PO SCH (09:24)
[2020-02-11] MEDS: DULOXETINE HCL 30 MG DELAYED RELEASE PO SCH (09:24)
[2020-02-11] MEDS: FENOFIBRATE 145 MG TAB PO SCH (09:24)
[2020-02-11] MEDS: LAMOTRIGINE 100 MG TAB PO SCH (09:24)
[2020-02-11] MEDS: DOCUSATE SODIUM 100 MG CAP PO SCH (09:24)
--- NOTE | 2020-02-11 11:38 | NUR ---
Paged Dr. Pruett to see if patient is OK to dc home with oral antibiotics today. Awaiting call back.
--- NOTE | 2020-02-11 11:44 | NUR ---
Spoke to Dr. Pruett, he said it is OK to dc patient home on oral abx
[2020-02-11 11:47] VITALS: BP 129/67
[2020-02-11] MEDS: THEOPHYLLINE 300 MG TABSR PO SCH (12:38)
--- NOTE | 2020-02-11 14:37 | NUR ---
Discharge instructions and prescription given to the patient, she verbalized understanding. IV to the left FA was removed with tip intact.
--- NOTE | 2020-02-11 20:16 | Discharge Summary ---
HISTORY: Ms. De La Cruz is a 64-year-old female with history of COPD, former tobacco use, depression, came to the emergency room complaining of shortness of breath and cough. COVID x2 was negative. Chest x-ray showed bilateral opacities of the lungs. She was started on IV antibiotics, IV steroids, and theophylline as well as neb treatment. She is doing much better and the plan is to discharge her home if is okay with the consultants. PHYSICAL EXAMINATION: GENERAL: She is awake and alert. VITAL SIGNS: Temperature is 98.4 and blood pressure 122/64. HEART: Regular rate. LUNGS: Bilateral decreased breath sounds. ABDOMEN: Soft. LABORATORY DATA: On the blood work; white count 11.93, hemoglobin 12.4, hematocrit 40.5. Potassium 4.2, creatinine 0.69, glucose 100. COVID test x2 was negative. Chest x-ray shows no focal consolidation, pleural effusion, or pneumothorax. DISCHARGE DIAGNOSES: 1. Msgss-ex-afgbbyw hypoxic respiratory failure. 2. Possible pneumonia. 3. Chronic obstructive pulmonary disease exacerbation. 4. Former tobacco use. 5. Oxygen dependent. 6. Bipolar disorder. 7. Hypertension. PLAN: To discharge the patient home to continue her Effexor and Cymbalta. She is going to be on steroids to taper down. She is going to be on Levaquin 500 mg daily for 7 more days. She is to continue her neb treatments and her other home medications. She is also going to be on theophylline extended release 300 mg daily. She needs to follow up with me in 1 week. She is to call me or come back to the emergency room if any recurrent problem. All this was discussed in detail with the patient. All questions were answered to satisfaction. MD MYLES Bass/MAGALI /[id number]
== END 2020-02-11 14:54 | disposition home or self-care (01) | DRG 193 ==
LOC: ER 20:50 → ERHOLD 23:48 → IMCU 02-06 01:47 → MED/SURG2 02-08 15:03
PROVIDERS: ADMIT Internal Medicine; ATTEND Internal Medicine
DX: J15.9 Unspecified bacterial pneumonia (principal); J96.22 Acute and chronic respiratory failure with hypercapnia; J96.21 Acute and chronic respiratory failure with hypoxia; J44.1 Chronic obstructive pulmonary disease with (acute) exacerbation; F32.9 Major depressive disorder, single episode, unspecified; Z87.891 Personal history of nicotine dependence; I10 Essential (primary) hypertension; Z86.19 Personal history of other infectious and parasitic diseases; Z90.49 Acquired absence of other specified parts of digestive tract; F31.9 Bipolar disorder, unspecified; M54.9 Dorsalgia, unspecified; Z99.81 Dependence on supplemental oxygen; Z11.59 Encounter for screening for other viral diseases
CPT/HCPCS: 36415; 36600; 71045; 71046; 80048; 80053; 80198; 82550; 82553; 82805; 83605; 83880; 84484; 85025; 85610; 85730; 87040; 87071; 87205; 93005; 94640; 94660; 94664; 97139; 99284; J0456; J1100; J2405; J2543; J2920; J7050; U0002

== ENCOUNTER → 2022-01-11 | Day surgery (SDC) | payer MEDICARE, OTHER ==
[2022-01-09 13:29] LABS: BASOPHILS % 0.4 % (0.0-1.0); EOSINOPHILS # (AUTO) 0.2 (0.0-0.4); EOSINOPHILS % 1.9 % (0.0-6.0); HEMATOCRIT 34.3 % (34.2-44.1); HEMOGLOBIN 10.6 g/dL (12.0-16.0); LYMPHOCYTES # (AUTO) 2.1 (1.0-3.2); LYMPHOCYTES % 20.9 % (18.0-39.1); MEAN CORPUSCULAR HEMOGLOBIN 29.8 pg (28-32); MEAN CORPUSCULAR HGB CONC 30.9 g/dL (31-35); MEAN CORPUSCULAR VOLUME 96.3 fL (81-99); MONOCYTES # (AUTO) 0.8 (0.2-0.8); MONOCYTES % 7.5 % (4.4-11.3); PLATELET COUNT 231 x10e3/uL (140-360); RED BLOOD COUNT 3.56 x10e6/uL (3.6-5.1); RED CELL DISTRIBUTION WIDTH 11.6 % (11.7-14.4)
[2022-01-09 13:40] LABS: INR 0.85; PARTIAL THROMBOPLASTIN TIME 24.3 seconds (23.8-35.5); PROTHROMBIN TIME 12.4 seconds (11.9-14.5)
[2022-01-09 13:47] LABS: ALBUMIN 3.9 g/dL (3.5-5.0); ANION GAP 19.6 mmol/L (8-16); CALCIUM 11.1 mg/dL (8.4-10.2); CREATININE, SERUM 0.98 mg/dL (0.57-1.11); POTASSIUM 5.6 mmol/L (3.5-5.1)
[~2022-01-11] MED LIST changes: +ALBUTEROL1.25 MG/3 NEB; +BALANCED SALT SOLN (OPTH) 15 ML BTL IO ONE; +BIOTIN 800 MCG1 EACH PO; +BUPIVACAINE HC 0.75% PF 10ML VIAL INJ ONE; +CALCET TABLET1 EACH PO; +CYCLOPENTOLATE HCL 2% OPTH SOLN 2 ML BTL OP ONE; +EPINEPHRINE HCL 1:1000 1ML 1 MG/ML AMP ONE; +GATIFLOXACIN(OPTH) 5 ML LIQD ONE; +LIDOCAINE 2% /EPINEPHRINE 20 ML SDV INJ ONE; +LIDOCAINE HCL 2% LOCAL INJ 5 ML SDV VIAL INJ ONE; +LIDOCAINE HCL-PF 4% 40 MG/1 ML 5ML AMP ONE; +ONDANSETRON HCL INJ 2MG/ML 2ML 2 MG/ML VIAL ONE; +PHENYLEPHRINE HCL 2 ML DROPS ONE; +PILOCARPINE HCL(OPTH) 15 ML LIQD ONE; +POVIDONE IODINE 0.05% 0.05 % ML PO ONE; +POVIDONE IODINE 5% (OPTH) 30 ML BTL ONE; +PROPOFOL IV EMULSION 10 MG/ML 20 ML VIAL ONE; +TELMISARTAN-HC1 EAC1 PO; +TOBRAMYCIN/DEXAMETHASONE(OPTH) 3.5 GM TUBE ONE; +VITAMIN B-121000 MC4 PEG; +VITAMIN C1000 MG PO
[2022-01-11 11:25] VITALS: BP 116/78
== END | disposition home or self-care (01) ==
LOC: OR 07:50
PROVIDERS: ATTEND Ophthalmology
DX: H25.11 Age-related nuclear cataract, right eye (principal); I10 Essential (primary) hypertension; J44.9 Chronic obstructive pulmonary disease, unspecified; R53.1 Weakness; M81.0 Age-related osteoporosis without current pathological fracture; I51.7 Cardiomegaly; F31.9 Bipolar disorder, unspecified; Z99.81 Dependence on supplemental oxygen; R05.9 Cough, unspecified; K74.60 Unspecified cirrhosis of liver; F17.210 Nicotine dependence, cigarettes, uncomplicated; Z88.6 Allergy status to analgesic agent; Z01.810 Encounter for preprocedural cardiovascular examination; Z01.812 Encounter for preprocedural laboratory examination; Z20.822 Contact with and (suspected) exposure to COVID-19; Z79.899 Other long term (current) drug therapy; Z86.19 Personal history of other infectious and parasitic diseases
CPT/HCPCS: 0223U; 36415 ×2; 66984; 80053; 84132; 85025; 85610; 85730; 93005; J0171; J2001; V2632; J2405

== ENCOUNTER 2022-10-07 17:23 | Emergency (ER) | payer MEDICARE, OTHER ==
[~2022-10-07] VITALS: Ht 162.6 cm; Wt 71.2 kg
[~2022-10-07 17:23] MED LIST changes: +ACETAMINOPHEN-1 EAC4 PO; -BALANCED SALT SOLN (OPTH) 15 ML BTL IO ONE; -BUPIVACAINE HC 0.75% PF 10ML VIAL INJ ONE; -CYCLOPENTOLATE HCL 2% OPTH SOLN 2 ML BTL OP ONE; -EPINEPHRINE HCL 1:1000 1ML 1 MG/ML AMP ONE; -GATIFLOXACIN(OPTH) 5 ML LIQD ONE; -LIDOCAINE 2% /EPINEPHRINE 20 ML SDV INJ ONE; -LIDOCAINE HCL 2% LOCAL INJ 5 ML SDV VIAL INJ ONE; -LIDOCAINE HCL-PF 4% 40 MG/1 ML 5ML AMP ONE; +MICARDIS HCT 41 EACH; -ONDANSETRON HCL INJ 2MG/ML 2ML 2 MG/ML VIAL ONE; -PHENYLEPHRINE HCL 2 ML DROPS ONE; -PILOCARPINE HCL(OPTH) 15 ML LIQD ONE; -POVIDONE IODINE 0.05% 0.05 % ML PO ONE; -POVIDONE IODINE 5% (OPTH) 30 ML BTL ONE; -PROPOFOL IV EMULSION 10 MG/ML 20 ML VIAL ONE; -TOBRAMYCIN/DEXAMETHASONE(OPTH) 3.5 GM TUBE ONE; +TRICOR145 MG PO; +VENLAFAXINE HCL75 M2 PO; -VITAMIN B-121000 MC4 PEG; +VITAMIN B-121000 MC4 PO
[2022-10-07] MEDS ORDERED: HYDROCODONE/APAP 10MG-325MG TAB PO ONE (19:00)
[2022-10-07] MEDS ORDERED: ALBUTEROL/IPRATROPIUM 3 ML NEB NEB ONE (19:45)
[2022-10-07] MEDS ORDERED: ALBUTEROL SULF 0.083% NEB SOLN 3 ML NEB ONE (19:58)
[2022-10-07] MEDS ORDERED: IPRATROPIUM BROMIDE 0.02% 2.5 ML NEB ONE (19:59)
[2022-10-07 20:54] VITALS: BP 134/64
== END 2022-10-07 20:52 | disposition home or self-care (01) ==
LOC: ER 18:05
DX: S43.491A Other sprain of right shoulder joint, initial encounter (principal); S22.050D Wedge compression fracture of T5-T6 vertebra, subsequent encounter for fracture with routine healing; M54.50 Low back pain, unspecified; W18.39XA Other fall on same level, initial encounter; Y92.89 Other specified places as the place of occurrence of the external cause; I10 Essential (primary) hypertension; J44.9 Chronic obstructive pulmonary disease, unspecified; F31.9 Bipolar disorder, unspecified; Z99.81 Dependence on supplemental oxygen
CPT/HCPCS: 72128; 72131; 94799; 99284

== ENCOUNTER 2022-12-24 19:28 | Emergency (ER) | payer MEDICARE ==
[~2022-12-24] VITALS: Ht 162.6 cm; Wt 71.2 kg
[2022-12-24] MEDS ORDERED: KETOROLAC TROMETHAMINE 30 MG/ML VIAL IV STA (20:19)
[2022-12-24] MEDS ORDERED: ONDANSETRON HCL INJ 2MG/ML 2ML 2 MG/ML VIAL IV STA (20:19)
[2022-12-24] MEDS ORDERED: ALBUTEROL/IPRATROPIUM 3 ML NEB NEB ONE (20:30)
[2022-12-24] MEDS ORDERED: SODIUM CHLORIDE FLUSH 10 ML SYR IV PRN (20:30)
[2022-12-24] MEDS ORDERED: ACETAMINOPHEN 325 MG TAB PO ONE (20:30)
[2022-12-24] MEDS ORDERED: METOCLOPRAMIDE HCL 10 MG/2ML VIAL IV ONE (20:30)
[2022-12-24] MEDS ORDERED: SODIUM CHLORIDE 0.9% 1000ML 1,000 ML IV ONE (20:30)
[2022-12-24] MEDS ORDERED: DIPHENHYDRAMINE HCL INJ 50 MG/ML VIAL IV ONE (20:30)
[2022-12-24 20:31] LABS: BASOPHILS % 0.6 % (0.0-1.0); EOSINOPHILS # (AUTO) 0.2 (0.0-0.4); EOSINOPHILS % 2.3 % (0.0-6.0); HEMATOCRIT 35.1 % (34.2-44.1); HEMOGLOBIN 10.9 g/dL (12.0-16.0); LYMPHOCYTES # (AUTO) 1.7 (1.0-3.2); LYMPHOCYTES % 25.4 % (18.0-39.1); MEAN CORPUSCULAR HEMOGLOBIN 29.2 pg (28-32); MEAN CORPUSCULAR HGB CONC 31.1 g/dL (31-35); MEAN CORPUSCULAR VOLUME 94.1 fL (81-99); MONOCYTES # (AUTO) 0.5 (0.2-0.8); MONOCYTES % 7.1 % (4.4-11.3); NEUTROPHILS # (AUTO) 4.2 (2.1-6.9); NEUTROPHILS % 64.4 % (38.7-80.0); PLATELET COUNT 196 x10e3/uL (140-360); RED BLOOD COUNT 3.73 x10e6/uL (3.6-5.1); RED CELL DISTRIBUTION WIDTH 12.1 % (11.7-14.4)
[2022-12-24 20:50] LABS: ALBUMIN 4.3 g/dL (3.5-5.0); ALBUMIN/GLOBULIN RATIO 1.4 (0.8-2.0); ANION GAP 14.1 mmol/L (8-16); CREATININE, SERUM 0.63 mg/dL (0.57-1.11); POTASSIUM 4.1 mmol/L (3.5-5.1)
[2022-12-24 22:30] VITALS: PULSE 108; RESP 20; O2SAT 100
[2022-12-25 02:12] VITALS: BP 143/73; PULSE 107; RESP 23; TEMP 98.4; O2SAT 100
[2022-12-25] MEDS ORDERED: ONDANSETRON ODT4 MG PO (02:26)
== END 2022-12-25 02:15 | disposition home or self-care (01) ==
LOC: ER 19:36
DX: G43.909 Migraine, unspecified, not intractable, without status migrainosus (principal); I10 Essential (primary) hypertension; J44.9 Chronic obstructive pulmonary disease, unspecified; M54.9 Dorsalgia, unspecified; G89.29 Other chronic pain; Z99.81 Dependence on supplemental oxygen; F31.9 Bipolar disorder, unspecified; R94.31 Abnormal electrocardiogram [ECG] [EKG]
CPT/HCPCS: 36415; 70450; 71045; 80053; 83880; 84484; 85025; 93005; 94640; 94799; 99284; J1200; J1885; J2405; J2765; J7030